=== PATIENT | male | born 1950 | race Caucasian/White ===

== ENCOUNTER → 2018-03-30 14:08 | Outpatient (CLI) | payer MEDICARE, BC, SELFPAY ==
--- NOTE | 2018-03-30 14:14 | CT_ITS ---
EXAM: CT LUNG LOW DOSE WO CONTRAST TECHNIQUE: The exam was performed on a GE Light Speed [address] scanner using 3.0 mGy CTDI. A low dose helical CT CHEST was performed on a multi-detector scanner. All CT scans at this facility use one or more dose reduction techniques, viz.: automated exposure control, ma/kV adjustment per patient size (including targeted exams where dose is matched to indication, i.e. head) or iterative reconstruction technique. The LDCT was performed in a facility that meets the criteria for the screening program. Data regarding this exam was submitted to ACR which is an approved registry. The order for this exam indicates that it came as a result of a lung cancer screening counseling shard decision-making visit that included all the elements required of such a visit including smoking cessation. The radiologist interpreting this exam meets the CMS criteria for the LDCT lung cancer screening program. The exam is reported using the Lung-RADS classification scale and reported to the ACR registry. NOTE: This study was performed for the specific purposes of lung cancer screening and is not an alternative to diagnostic chest CT. COMPARISON: Nodes CT chest study available but there is a CT of abdomen from 09/10/2015 HISTORY: Currently smokin PACS for day for 50 years = 100 pack-year history RADIATION DOSE: CTDI vol(CT dose Index-volume) = 2.90mGy DLP (Dose Length Product) = 116.2. mGy-cm FINDINGS: No suspicious lung nodules or masses. Indeterminate/Non-actionable Nodules(Category2): . A few scattered areas of minimal density at the periphery the lung duncan which appears reflect scarring. Small slightly nodular area probably scarring at the medial aspect of the RML axial image 58. Also aunt linear scarring anteriorly in the left likely candidate for density here. Benign nodules are also observed (Category1). Benign nearly 10 mm calcified granuloma at the medial right lung base. LUNG PARENCHYMA .: Mild hyperexpansion with mild centrilobular emphysematous changes . Only scant fibrotic changes at the periphery of the lung bases. Minimal linear fibrotic scarring most evident towards the posterior right lower lobe but also left lower lobe. Likely in part reflect residual from old 2007 basilar atelectasis/pneumonia episode Borderline to mild airway thickening : OTHER ANATOMIC REGIONS Lymph Nodes: No enlarged lymph nodes evident. Scattered small nodes are present in the mediastinum and lisset There are small calcified nodes right lisset and a calcified nodes subcarinal region reflect old granulomatous disease Pleura: Unremarkable Cardiac: . Normal size with only scant pericardial fluid anteriorly similar to previous CT abdomen study OTHER FINDINGS: No other pertinent findings evident Upper abdomen. Cholelithiasis again noted. Likely fatty changes of liver. Spleen upper normal size. Right adrenal nodule a 17 mm. Low-density previous study and today most likely reflecting benign nonfunctioning adenoma. Incrementally larger but that density. Left adrenal nodule: similar smaller fat density nodules upper portion left adrenal. These are smaller more difficult to delineate one measuring 8 mm and the other 10 mm but measuring fat density. An seen previously. Compatible with nonfunctioning adenomas. These can be followed as well. . IMPRESSION:...... 1. Lung RADS Category: 2. Minimal Benign appearing findings. Follow-up in one year .... Scattered minimal areas of scarring at what appears to be peripheral scarring at lung duncan bilaterally. Not of concern. One year follow-up adequate ... Also old benign granulomatous disease evident with calcified 1 cm granuloma medial right lung base & associated calcified right hilar and mediastinal
== END ==
PROVIDERS: PCP Family Medicine; Visit Provider Family Medicine
DX: Z12.2 Encounter for screening for malignant neoplasm of respiratory organs (principal); Z87.891 Personal history of nicotine dependence

== ENCOUNTER → 2019-02-13 12:49 | Outpatient (CLI) | payer MEDICARE, BC, SELFPAY ==
--- NOTE | 2019-02-13 12:53 | US_ITS ---
APPROVED REPORT Exam Type: Ankle to Brachial Index Software Security Architect: Rosey Steward CRT Indications Claudication: Current Smoker Risk Factors Hypertension Diabetes Current Smoker Pressures/Indices Right Indices Left Indices Brachial 151.00 mmHg Brachial 160.00 mmHg Low Thigh 166.00 mmHg 1.04 Low Thigh 168.00 mmHg 1.05 Calf 170.00 mmHg 1.06 Calf 177.00 mmHg 1.11 Ankle(PT) 152.00 mmHg 0.95 Ankle(PT) 176.00 mmHg 1.10 Ankle(DP) 147.00 mmHg 0.92 Ankle(DP) 147.00 mmHg 0.92 Digit 133.00 mmHg 0.83 Digit 89.00 mmHg 0.56 Findings RABI 1.0 LABI 1.1 NORMAL WAVEFORMS NORMAL PULSES Conclusion No evidence significant arterial disease throughout the right and left lower extremities as evidenced by normal resting PVR waveforms and normal resting indices. Electronically signed by : Sha Weaver MD 02/13/2019 17:22:48
== END ==
PROVIDERS: PCP Family Medicine; Visit Provider Family Medicine
DX: E11.51 Type 2 diabetes mellitus with diabetic peripheral angiopathy without gangrene (principal)
CPT/HCPCS: 93923

== ENCOUNTER 2019-05-28 22:47 | Observation (INO) ==
[2019-05-28 22:52] LABS: ABG Base Excess -2.8 mmol/L (-2.4-2.3); ABG HCO3 21.7 mmhg (22.0-26.0); ABG Oxygen Saturation 91 % (90-100); ABG PCO2 34.4 mmhg (35.0-45.0); ABG PH 7.42 mmol/L (7.35-7.45); ABG PO2 59.9 mmhg (80-100); ABG TCO2 22.8 mmhg (23-27); Allen's Test Y; Oxygen R/A %
[2019-05-28 22:57] LABS: Basophils # 0.1 K/mm3 (0-0.2); Basophils % 0.5 % (0.1-2.0); Eosinophils # 0.3 K/mm3 (0.0-0.4); Eosinophils % 2.5 % (0.1-12.0); Hematocrit 49.2 % (42.0-52.0); Hemoglobin 16.6 g/dL (14.1-18.0); Lymphocytes # 1.1 K/mm3 (0.7-4.5); Lymphocytes % 8.7 % (10-50); Mean Corpuscular HGB Conc 33.8 g/dL (31.8-35.4); Mean Corpuscular Volume 91.4 fl (80-94); Mean Platelet Volume 8.4 fl (7.4-10.4); Monocytes # 0.3 K/mm3 (0.1-1.0); Monocytes % 2.4 % (1.7-9.3); Neutrophils # 10.6 K/mm3 (1.8-7.8); Neutrophils % 85.8 % (37.0-80.0); Platelet Count 173 K/mm3 (142-424); Red Blood Count 5.38 M/mm3 (4.60-6.20); Red Cell Distribution Width 14.4 % (11.5-17.5); White Blood Count 12.3 K/mm3 (4.8-10.8)
[2019-05-28 23:01] LABS: Chloride 99 mmol/L (98-107); Sodium 140 mmol/L (136-145)
[2019-05-28 23:04] LABS: Anion Gap 12.7 mEq/L (5-15); Blood Urea Nitrogen 30 mg/dl (9-20); Calcium 9.2 mg/dl (8.4-10.2); Carbon Dioxide 32 mmol/L (22.0-30.0); Glucose 105 mg/dl (74-100)
[2019-05-28 23:43] LABS: Eosinophils % 4 % (0-3); Lymphocytes % 14 % (10-50); Neutrophils % 82 % (42-76); RBC Morphology Normal; Total Cells Counted 100
--- NOTE | 2019-05-29 00:32 | Emergency Department Note ---
ED Disposition Clinical Impression: Acute confusion, Acute encephalopathy, Hypoxemia, Acute dyspnea, SIRS (systemic inflammatory response syndrome), Obesity hypoventilation syndrome UTI (urinary tract infection) Qualifiers: Urinary tract infection type: site unspecified Hematuria presence: without hematuria Qualified Code(s): N39.0 - Urinary tract infection, site not specified Sleep apnea Qualifiers: Sleep apnea type: obstructive Qualified Code(s): G47.33 - Obstructive sleep apnea (adult) (pediatric) Disposition: Admitted as Observation Condition on Discharge: Fair Referrals: Provider,Referral, MD [Primary Care Provider] - Time of Disposition: 05:06 - Critical Care Critical Care Time: Yes Attestation: On 05/28/19, the high probability of a clinically significant, sudden or life threatening deterioration of the following system(s) required my full and direct attention, intervention and personal management. The time I documented below is in addition to time spent performing reported procedures but includes the following listed in this critical care notation. Total Critical Care Time: 45 Vital system(s) involved:: Metabolic Failure, Respiratory Failure My critical care processes included: Assessment & monitoring of V/S, Initial and Re-exams, Data Review/Interpretation, Coordinating Care, Medication Orders and management, Documentation Medical Decision Making - Alcides Inquiry Pt receiving controlled substance: No Vital Signs: 05/28/19 22:48 Temperature 98.3 F Temperature Source Oral Pulse Rate [Right Brachial] 97 H Respiratory Rate 19 Blood Pressure [Right Arm] 153/94 H Blood Pressure Mean [Right Arm] 113 Blood Pressure Source [Right Arm] Automatic Cuff Blood Pressure Position [Right Arm] Sitting 02 Sat by Pulse Oximetry 95 Oxygen Delivery Method Room Air - Lab Data Lab results reviewed: Yes: I reviewed the patient's lab results. Lab Results 05/28/19 22:40: WBC 12.3 H, RBC 5.38, Hgb 16.6, Hct 49.2, MCV 91.4, MCH 30.9, MCHC 33.8, RDW 14.4, Plt Count 173, MPV 8.4, Neut % (Auto) 85.8 H, Lymph % (Auto) 8.7 L, [place] % (Auto) 2.4, Eos % (Auto) 2.5, Baso % (Auto) 0.5, Neut # (Auto) 10.6 H, Lymph # (Auto) 1.1, [place] # (Auto) 0.3, Eos # (Auto) 0.3, Baso # (Auto) 0.1, Total Counted 100, Neutrophils % (Manual) 82 H, Lymphocytes % (Manual) 14, Eosinophils % (Manual) 4 H, Platelet Estimate Normal, RBC Morphology Normal 05/28/19 22:40: Sodium 140, Potassium 3.7, Chloride 99, Carbon Dioxide 32 H, Anion Gap 12.7, BUN 30 H, Creatinine 1.30 H, Estimated Creat Clear 77, Estimated GFR 55 L, Est GFR ( Amer) 66, Glucose 105 H, Calcium 9.2, Troponin I < 0.01 05/28/19 22:40: Lactate 1.3 05/28/19 22:50: Specimen Source R/r, O2 % R/a, ABG pH 7.42, ABG pCO2 34.4 L, ABG pO2 59.9 L, ABG HCO3 21.7 L, ABG Total CO2 22.8 L, ABG O2 Saturation 91, ABG Base Excess -2.8 L, Sha Test Y 05/29/19 02:30: Troponin I 0.05 H, Plasma/Serum Alcohol < 10 05/29/19 02:30: Urine Color Yellow, Urine Appearance Clear, Urine pH 6.0, Ur Specific Priddy 1.020, Urine Protein Negative, Urine Glucose (UA) Negative, Urine Ketones Negative, Urine Blood Negative, Urine Nitrate Positive, Urine Bilirubin Negative, Urine Urobilinogen 0.2, Ur Leukocyte Esterase 1+ A, Urine WBC 5-10, Ur Squamous Epith Cells 3-5, Urine Bacteria 3+, Urine Mucus 1+ 05/29/19 02:30: NT-Pro-B Natriuret Pep 491 H 05/29/19 02:30: Urine Opiates Screen Negative, Urine Methadone Screen Negative, Ur Barbituates Screen Negative, Ur Phencyclidine Scrn Negative, Ur Amphetamines Screen Negative, U Benzodiazepines Scrn Negative, Urine Cocaine Screen Negative, U Marijuana (THC) Screen Negative 05/29/19 03:14: Specimen Source R/r, O2 % R/a, ABG pH 7.41, ABG pCO2 38.5, ABG pO2 59.7 L, ABG HCO3 23.9, ABG Total CO2 25.0, ABG O2 Saturation 92, ABG Base Excess -0.8, Sha Test Y 05/29/19 03:18: Influenza Type A Ag Negative, Influenza Type B Ag Negative 05/29/19 04:30: Troponin I 0.05 H 05/29/19 04:30: Ammonia < 9 L Result diagrams: 05/28/19 22:40 05/28/19 22:40 Orders (Tests/Meds): ED MEDICATIONS Generic Name Dose Route Start Last Admin Trade Name Freq PRN Reason Stop Dose Admin Ceftriaxone Sodium 1 gm/ 50 mls @ 100 mls/hr 05/29/19 04:42 Sodium Chloride IV 05/29/19 05:11 ONCE STA Protocol Sodium Chloride 10 ml 05/29/19 00:43 Sodium Chloride 0.9% 10ml Vial IV 06/28/19 00:42 NEEDED PRN to Dilute Lorazepam inj Sodium Chloride 10 ml 05/29/19 03:32 Sodium Chloride 0.9% 10ml Vial IV 06/28/19 03:31 NEEDED PRN to Dilute Lorazepam inj Discontinued Medications Generic Name Dose Route Start Last Admin Trade Name Freq PRN Reason Stop Dose Admin Haloperidol Lactate 5 mg 05/29/19 04:11 Haldol 5mg/Ml Vial IM 05/29/19 04:12 ONCE ONE Ioversol 70 ml 05/29/19 04:58 05/29/19 05:00 Rad-Optiray 350 100ml Vial IV 05/29/19 04:59 70 ml ONCE ONE Administration Protocol Lorazepam 2 mg 05/29/19 00:43 05/29/19 00:51 Ativan 2mg/Ml Vial IV 05/29/19 00:44 2 mg ONCE ONE Administration Lorazepam 1 mg 05/29/19 03:32 Ativan 2mg/Ml Vial IV 05/29/19 03:33 ONCE ONE Promethazine HCl 25 mg 05/28/19 23:46 05/28/19 23:53 Phenergan 25mg/Ml 1ml Vial IV 05/28/19 23:47 25 mg ONCE ONE Administration Sodium Chloride 25 ml 05/28/19 23:46 Sod Chlor 0.9% 25ml Bag IV 05/28/19 23:47 ONCE ONE Sodium Chloride 40 ml 05/29/19 04:58 05/29/19 04:59 Rad-Ns 50ml Vial IV 05/29/19 04:59 40 ml ONCE ONE Administration Sodium Chloride 10 ml 05/29/19 04:58 05/29/19 04:59 Rad-Saline Flush 10ml Syringe IV 05/29/19 04:59 10 ml ONCE ONE Administration ORDERS Category Date Time Status CT Chest w/PE protocol [CT angio chest] Stat Cat Scan 05/29/19 00:[address] abdomen pelvis wo con Stat Cat Scan 05/29/19 04:[address] head/brain wo con Stat Cat Scan 05/29/19 03:05 Taken XR chest portable Stat Exams 05/28/19 22:45 Taken Blood Culture Stat Micro 05/28/19 22:40 Received Urine Culture Stat Micro 05/29/19 02:30 Received ABG [Arterial Blood Gas] Stat RT 05/28/19 22:45 Ordered ABG [Arterial Blood Gas] Stat RT 05/29/19 03:02 Ordered - Radiology Data #1 Image(s): Chest Image Reviewed: Yes I reviewed the patient's radiology image Chronic lung changes with questionable granulomatous, no acute infiltrate. - CT Data CT Scan: Chest Time Received: 02:[address] Reviewed: Yes: I have viewed the radiologist's interpretation Findings Narrative: CT of the chest shows no evidence of pulmonary embolism in the main branches of the pulmonary artery. Splenomegaly. No consolidation or low mass on the lungs. Gallstones in the gallbladder. Splenomegaly. No other acute finding. CT of the head is negative for any acute intracranial abnormality. CT of the abdomen pelvis reports no acute intra-abdominal or pelvic pathology. Adrenal nodules noted questionable segment 2 mass in the liver on the left lobe. - ECG Data Tracing #1 EKG done at 2241 hrs. shows sinus rhythm with nonspecific ST-T changes. Wide- complex QRS pattern, left bundle branch block pattern. - Physician Consults Physician Consulted: Dr. Domínguez Time: 05:02 Reason -: Admission, Pt condition Comment/Response: Dr. Domínguez, the patient's primary care provider, regarding the patient and planned to get the patient admitted for acute confusion/acute dyspnea/urinary tract infection/SIRS. - Reevaluation(s) Time: 01:10 Reevaluation #1: Patient seems to be anxious. Plan to give him 1 dose of Ativan. Time: 02:26 Reevaluation #3: Patient looks drowsy but asked confused when waking up. He is not making any sense when he is conversing. Plan to do a CT scan of the head to further evaluate for intracranial cause of the problem. Time reevaluation 3: 03:05 Reevaluation #2: Patient was feeling better after the Ativan shot. His heart rate initially was around 110s to 120s but it dropped down to 80s after the Ativan. He was resting well. Additional Reevaluation(s): Pt was repeatedly having frequent urination. The has urinated on his pants too. He had voided about 800ml of urine by himself. He was still complaining of willing to void . I decided to check his bladder after his voiding. On the ultrasound that I did this seems to be about 400 mL of urine still present on the bladder after he had voided about 300 mL of urine out. Patient seems to have enlarged prostate. And to insert a Donis catheter to check for the residual urine and monitor the patient accordingly. Resp/SOB HPI - General Chief Complaint: Shortness of Breath/Dyspnea Stated Complaint: shortness of air Time Seen by Provider: 05/29/19 00:15 Mode of Arrival: EMS Source of Information: Patient Limitations: No Limitations Description of Symptoms (Recalled from ER Triage Doc. by RN): pt describes having a coughing fit, where he got choked on his own phlegmn and became soa . he called 911 for difficulty getting his breath back. history significant for anxiety. - History of Present Illness 69-year-old male was brought in by the EMS for having acute onset shortness of breath just prior to arrival. Patient states he was sleeping when he woke up with a sudden onset shortness of breath. He states he was having a choking episodes at this time. He got very anxious and he may have gone into panic mode. He has history of panic attack and shortness of breath due to the same. Denies having any acute chest pain. Denies having any acute nausea or vomiting. Patient is hyperventilating and tachypneic in the emergency department. Does not give a proper history. Complaint: shortness of breath - Related Data Home Medications Medication Instructions Recorded Confirmed Amlodipine Besylate [Amlodipine 10 mg PO DAILY 05/28/19 05/28/19 10mg Tab] Indomethacin 25 mg PO DAILY 05/28/19 05/28/19 Potassium Chloride 20 meq PO DAILY 05/28/19 05/28/19 Pramoxine HCl/Ammonium Lactate 1 each TP NEEDED PRN 05/28/19 05/28/19 [Amlactin Distribution Pack] Sitagliptin Phos/Metformin HCl 1 each PO DAILY 05/28/19 05/28/19 [Janumet 50-500 mg Tablet] Tamsulosin HCl [Flomax 0.4mg 0.4 mg PO HS 05/28/19 05/28/19 capsule] Triamterene 50 mg PO CONSULT PHARMACY 05/28/19 05/28/19 allopurinoL [Allopurinol 300mg 300 mg PO DAILY 05/28/19 05/28/19 tablet] atenoloL [Atenolol 100mg Tab] 100 mg PO DAILY 05/28/19 05/28/19 Allergies Allergy/AdvReac Type Severity Reaction Status Date / Time shellfish derived Allergy Intermediate DIARRHEA/VO Unverified 03/21/17 15:24 [From SHELLFISH (FOOD/DRUG)] MITING/COUG JAYE From SHELLFISH (FOOD/DRUG) Allergy Intermediate DIARRHEA/VO Uncoded 03/21/17 15:24 MITING/COUG JAYE [facility] History - Hepatitis A Screen Drug use history?: No High risk sexual behaviors?: No History of sexually transmitted infection?: No Currently employed?: No Childcare worker?: No Do you have indoor plumbing?: Yes Do you have electricity?: Yes Attestation statement:: This patient has been screened for Hepatitis A risk factors. I have reviewed the patient's past medical history: Yes ROS Obtained: Yes All systems reviewed & no additional complaints Physical Exam - General General appearance: alert, anxious (Patient is hyperventilating and tachypneic.), obese, other (Questionable acidotic breath smell.) - Head Head exam: atraumatic, normocephalic, normal inspection - Eye Eye exam: Present: normal appearance, PERRL, EOMI - ENT ENT exam: Present: normal exam, normal oropharynx, mucous membranes moist, normal external ear exam - Neck Neck exam: Present: normal inspection, full ROM, trachea midline - Chest Chest inspection: Present: normal inspection, symmetric chest wall rise. Absent: tenderness - Respiratory Respiratory exam: Present: normal lung sounds bilaterally. Absent: respiratory distress - Cardiovascular Cardiovascular exam: Present: regular rate, normal rhythm. Absent: JVD - Abdominal Exam Abdominal exam: Present: soft, normal bowel sounds. Absent: distention, tenderness, guarding - Extremities Exam Extremities exam: Present: normal inspection, full ROM, normal capillary refill. Absent: calf tenderness - Back Exam Back exam: Present: normal inspection. Absent: tenderness - Neurological Exam Neurological exam: Present: alert, oriented X3, CN II-XII intact - Psychiatric Psychiatric exam: Present: normal affect, normal mood - Skin Skin exam: Present: warm, dry, intact, normal color
[2019-05-29 02:50] LABS: Ethyl Alcohol < 10 mg/dl (0-10)
[2019-05-29 03:10] LABS: Microscopic, Urine URINE MICROSCOPIC (MICROSCOPIC)
[2019-05-29 03:13] LABS: Appearance,Urine CLEAR (Clear); Bilirubin,Urine Negative (Negative); Blood, Urine Negative (Negative); Color,Urine YELLOW (Yellow); Glucose,Urine (UA) Negative (Negative); Ketones,Urine Negative (Negative); Leukocyte Esterase,Urine 1+ (Negative); Protein,Urine Negative (Negative); Urobilinogen,Urine 0.2 EU/dl (0.2)
[2019-05-29 03:15] LABS: ABG Base Excess -0.8 mmol/L (-2.4-2.3); ABG HCO3 23.9 mmhg (22.0-26.0); ABG Oxygen Saturation 92 % (90-100); ABG PCO2 38.5 mmhg (35.0-45.0); ABG PH 7.41 mmol/L (7.35-7.45); ABG PO2 59.7 mmhg (80-100)
[2019-05-29 03:16] LABS: Allen's Test Y; Oxygen R/A %
[2019-05-29 03:18] LABS: Bacteria,Urine 3+ /lpf; Mucus,Urine 1+ /lpf
[2019-05-29 03:39] LABS: Amphetamine/Metha Screen,Urine Negative ng/ml (<1000)
[2019-05-29 03:40] LABS: Barbiturates Screen,Urine Negative ng/ml (<200)
[2019-05-29 03:41] LABS: Benzodiazepines Screen,Urine Negative ng/ml (<200); Cannabinoid Screen,Urine Negative ng/ml (<50)
[2019-05-29 03:42] LABS: Cocaine Screen,Urine Negative ng/ml (<300)
[2019-05-29 03:43] LABS: Methadone Screen,Urine Negative ng/ml (<300); Opiate Screen,Urine Negative ng/ml (<300)
[2019-05-29 03:44] LABS: Phencyclidine Screen,Urine Negative ng/ml (<25)
[2019-05-29 07:28] LABS: Anion Gap 11.9 mEq/L (5-15); Basophils # 0.1 K/mm3 (0-0.2); Basophils % 0.9 % (0.1-2.0); Calcium 9.1 mg/dl (8.4-10.2); Eosinophils # 0.2 K/mm3 (0.0-0.4); Eosinophils % 2.4 % (0.1-12.0); Hematocrit 45.4 % (42.0-52.0); Hemoglobin 15.2 g/dL (14.1-18.0); Lymphocytes # 0.9 K/mm3 (0.7-4.5); Lymphocytes % 9.4 % (10-50); Mean Corpuscular HGB Conc 33.5 g/dL (31.8-35.4); Mean Corpuscular Volume 92.5 fl (80-94); Mean Platelet Volume 8.2 fl (7.4-10.4); Monocytes # 0.4 K/mm3 (0.1-1.0); Monocytes % 4.5 % (1.7-9.3); Neutrophils # 7.9 K/mm3 (1.8-7.8); Neutrophils % 82.8 % (37.0-80.0); Platelet Count 137 K/mm3 (142-424); Red Blood Count 4.91 M/mm3 (4.60-6.20); Red Cell Distribution Width 14.3 % (11.5-17.5); White Blood Count 9.5 K/mm3 (4.8-10.8)
--- NOTE | 2019-05-29 07:41 | Pharmacy Consult Notes ---
[facility] Pharmacy VTE Monitoring - Patient Demographics Admission date: 05/29/19 Report Date: 05/29/19 Time: 07:41 Allergies/Adverse Reactions: Patient Allergies shellfish derived [From SHELLFISH (FOOD/DRUG)] Allergy (Intermediate, Verified 05/29/19 05:29) DIARRHEA/VOMITING/COUGHING Height: 1.7 m Weight: 100.754 kg Patient Problems: Current Active Problems Acute confusion (Acute) Acute encephalopathy (Acute) Hypoxemia (Acute) Acute dyspnea (Acute) UTI (urinary tract infection) (Acute) SIRS (systemic inflammatory response syndrome) (Acute) Obesity hypoventilation syndrome (Acute) Sleep apnea (Acute) - VTE Risk Labs: VTE Related Lab Results Hgb 15.2 g/dL (14.1-18.0) 05/29/19 07:06 Hct 45.4 % (42.0-52.0) 05/29/19 07:06 Plt Count 137 K/mm3 (142-424) L 05/29/19 07:06 BUN 24 mg/dl (9-20) H 05/29/19 07:06 Creatinine 1.10 mg/dl (0.66-1.25) 05/29/19 07:06 Estimated Creat Clear 92 mL/min (50-200) 05/29/19 07:06 - Prophylaxis VTE Prophylaxis Ordered?: Yes Types of VTE Prophylaxis: TEDS Knee High Location of Applied Device: Bilateral Lower Extremeties Pharmacologic Type: Other
--- NOTE | 2019-05-29 09:00 | History & Physical Report ---
*Admission Date: 05/29/19 *Chief complaint: Shortness of breath *History of present illness: Mr. Childers is a 69-year-old male with a history of hypertension, metabolic syndrome, diverticulitis, and diabetes mellitus who presented to [facility] emergency room complaining of progressive shortness of breath. Patient states that he had been ill for several days. He states he has been eating and drinking normally. He denies diarrhea but states he has been vomiting. Patient is a poor historian this morning due to lethargy. Patient had extensive work-up in the emergency room: White blood cell count was found to be elevated at 12,300 and is normalized this a.m. Blood chemistries revealed BUN of 30 and creatinine of 1.3. Troponin I's were elevated at 0.05, 0.05, and 0.04, BNP was 491. He had 2 sets of blood gases with normal pH ,PCO2 ranged from 34.4-30.5, PO2 range 59.9-59.7, and b icarb of 21.7-23.9. Urinalysis did show 1+ leuk esterase 3+ bacteria and positive nitrates. Drug screen was negative; flu test was also negative for A and B. Chest x-ray showed minimal atelectatic or fibrotic changes and otherwise was negative. CT of the chest showed no evidence of acute pulmonary embolism. CT of the Head showed no Acute intracranial findings. CT of the abdomen and pelvis showed no acute abdominal or pelvic findings, diverticulosis, cholelithiasis, bilateral adrenal nodules. In the emergency room patient was started on Rocephin IV and given a total of 3 mg of lorazepam IV, 25 mg of promethazine, and 5 mg of Haldol IM. This a.m. at time of initial exam patient is quite lethargic. He does answer questions but speech is garbled. He Denies chest pain and shortness of breath. He denies abdominal pain. He denies nausea. [facility] History Medical History: Reports:: Diabetes Mellitus Type 2, Hypertension *Have you ever received a pneumonia vaccine?: Yes *Have you received a flu vaccine this season?: Yes Laterality Cases: Bilateral: Cataract, Tonsillectomy Other Surgeries: Yes: Other (Breast surgery, anal fistula repair) - *Social History Educational Level: Attended College Smoking Status: Current every day smoker # Packs/Day (cigarettes): 1 Alcohol Intake: never *Occupational Status:: unemployed Household Members: none *Travel in the last 8 weeks: None Family Hx:: Cancer (In both mother and father) Review of Systems - Constitutional Denies headache(s) - ENT Denies ear pain, Denies sore throat - *Cardiovascular Reports shortness of breath, Denies chest pain, Denies leg swelling - *Respiratory Reports cough, Reports shortness of breath - *Gastrointestinal Reports vomiting, Denies abdominal pain, Denies nausea - *Genitourinary Denies difficulty urinating - *Musculoskeletal Denies joint pain - *Neurologic Reports confusion, Denies seizure-like activity Meds Home Medications Medication Instructions Recorded Confirmed Type Indomethacin 25 mg PO TID 05/28/19 05/29/19 History Potassium Chloride 20 meq PO DAILY 05/28/19 05/28/19 History Sitagliptin Phos/Metformin HCl 1 each PO DAILY 05/28/19 05/28/19 History [Janumet 50-500 mg Tablet] Tamsulosin HCl [Flomax 0.4mg 0.4 mg PO HS 05/28/19 05/28/19 History capsule] allopurinoL [Allopurinol 300mg 300 mg PO DAILY 05/28/19 05/28/19 History tablet] atenoloL [Atenolol 100mg Tab] 100 mg PO DAILY 05/28/19 05/28/19 History Amlodipine Besylate [Amlodipine 5 mg PO DAILY 05/29/19 05/29/19 History 5mg tab] Triamterene/Hydrochlorothiazid 1 each PO DAILY 05/29/19 05/29/19 History [Maxzide 37.5 mg-25 mg Tablet] Allergies Allergy/AdvReac Type Severity Reaction Status Date / Time shellfish derived Allergy Intermediate DIARRHEA/VO Verified 05/29/19 05:29 [From SHELLFISH (FOOD/DRUG)] MITING/COUG JAYE Exam Vital signs and Labs for Last 24 Hours: Temp Pulse Resp BP Pulse Ox 98.4 F 78 20 145/52 H 94 L 05/29/19 08:00 05/29/19 08:00 05/29/19 08:00 05/29/19 08:00 05/29/19 08:00 Laboratory Results - last 24 hr 05/28/19 22:40: WBC 12.3 H, RBC 5.38, Hgb 16.6, Hct 49.2, MCV 91.4, MCH 30.9, MCHC 33.8, RDW 14.4, Plt Count 173, MPV 8.4, Neut % (Auto) 85.8 H, Lymph % (Auto) 8.7 L, [place] % (Auto) 2.4, Eos % (Auto) 2.5, Baso % (Auto) 0.5, Neut # (Auto) 10.6 H, Lymph # (Auto) 1.1, [place] # (Auto) 0.3, Eos # (Auto) 0.3, Baso # (Auto) 0.1, Total Counted 100, Neutrophils % (Manual) 82 H, Lymphocytes % (Manual) 14, Eosinophils % (Manual) 4 H, Platelet Estimate Normal, RBC Morphology Normal 05/28/19 22:40: Sodium 140, Potassium 3.7, Chloride 99, Carbon Dioxide 32 H, Anion Gap 12.7, BUN 30 H, Creatinine 1.30 H, Estimated Creat Clear 77, Estimated GFR 55 L, Est GFR ( Amer) 66, Glucose 105 H, Calcium 9.2, Troponin I < 0.01 05/28/19 22:40: Lactate 1.3 05/28/19 22:50: Specimen Source R/r, O2 % R/a, ABG pH 7.42, ABG pCO2 34.4 L, ABG pO2 59.9 L, ABG HCO3 21.7 L, ABG Total CO2 22.8 L, ABG O2 Saturation 91, ABG Base Excess -2.8 L, Sha Test Y 05/29/19 02:30: Troponin I 0.05 H, Plasma/Serum Alcohol < 10 05/29/19 02:30: Urine Color Yellow, Urine Appearance Clear, Urine pH 6.0, Ur Specific Rachel 1.020, Urine Protein Negative, Urine Glucose (UA) Negative, Urine Ketones Negative, Urine Blood Negative, Urine Nitrate Positive, Urine Bilirubin Negative, Urine Urobilinogen 0.2, Ur Leukocyte Esterase 1+ A, Urine WBC 5-10, Ur Squamous Epith Cells 3-5, Urine Bacteria 3+, Urine Mucus 1+ 05/29/19 02:30: NT-Pro-B Natriuret Pep 491 H 05/29/19 02:30: Urine Opiates Screen Negative, Urine Methadone Screen Negative, Ur Barbituates Screen Negative, Ur Phencyclidine Scrn Negative, Ur Amphetamines Screen Negative, U Benzodiazepines Scrn Negative, Urine Cocaine Screen Negative, U Marijuana (THC) Screen Negative 05/29/19 03:14: Specimen Source R/r, O2 % R/a, ABG pH 7.41, ABG pCO2 38.5, ABG pO2 59.7 L, ABG HCO3 23.9, ABG Total CO2 25.0, ABG O2 Saturation 92, ABG Base Excess -0.8, Sha Test Y 05/29/19 03:18: Influenza Type A Ag Negative, Influenza Type B Ag Negative 05/29/19 04:30: Troponin I 0.05 H 05/29/19 04:30: Ammonia < 9 L 05/29/19 06:28: POC Glucose 111 H 05/29/19 07:06: Sodium 137, Potassium 3.9, Chloride 101, Carbon Dioxide 28, Ani on Gap 11.9, BUN 24 H, Creatinine 1.10, Estimated Creat Clear 92, Estimated GFR 67, Est GFR ( Amer) 81 D, Glucose 116 H, Calcium 9.1, Troponin I 0.04 H 05/29/19 07:06: WBC 9.5, RBC 4.91, Hgb 15.2, Hct 45.4, MCV 92.5, MCH 31.0, MCHC 33.5, RDW 14.3, Plt Count 137 L, MPV 8.2, Neut % (Auto) 82.8 H, Lymph % (Auto) 9.4 L, [place] % (Auto) 4.5, Eos % (Auto) 2.4, Baso % (Auto) 0.9, Neut # (Auto) 7.9 H, Lymph # (Auto) 0.9, [place] # (Auto) 0.4, Eos # (Auto) 0.2, Baso # (Auto) 0.1 I & O for Last 24 hours: Intake & Output 05/26/19 05/27/19 05/28/19 05/29/19 11:59 11:59 11:59 11:59 Intake Total 120 / 120 Output Total 1974 Balance -1855 / -1855 Weight 222 lb 2 oz - Constitutional no acute distress Comments: Lethargic - *Routine HEENT Exam Head: Present: normocephalic, atraumatic Eye: Present: PERRL. Absent: conjunctival icterus, scleral injection ENT: Present: mucous membranes moist, oropharynx clear - *Routine Neck Exam Present: supple. Absent: carotid bruit, lymphadenopathy, thyromegaly - *Routine Respiratory Exam Present: CTA bilaterally (Anteriorly and posteriorly) - *Routine Cardiovascular Exam Present: RRR - *Routine Abdominal Exam Present: soft, normoactive bowel sounds. Absent: tenderness, distended Comments: Has Donis catheter in place - *Routine Extremities Exam Absent: edema, calf tenderness - *Routine Neurological Exam Present: alert, altered mental status, moving all extremities Assessment and Plan (1) Troponin level elevated Current visit: Yes Status: Acute Category: Medical Code(s): R79.89 - Other specified abnormal findings of blood chemistry (2) Acute confusion Current visit: Yes Status: Acute Category: Medical Code(s): R41.0 - Disorientation, unspecified (3) Acute dyspnea Current visit: Yes Status: Acute Category: Medical Code(s): R06.00 - Dyspnea, unspecified (4) Hypoxemia Current visit: Yes Status: Acute Category: Medical Code(s): R09.02 - Hypoxemia (5) Obesity hypoventilation syndrome Current visit: Yes Status: Acute Category: Medical Code(s): E66.2 - Morbid (severe) obesity with alveolar hypoventilation (6) Sleep apnea Current visit: Yes Status: Acute Qualifiers: Sleep apnea type: obstructive Qualified Code(s): G47.33 - Obstructive sleep apnea (adult) (pediatric) Category: Medical Code(s): G47.30 - Sleep apnea, unspecified (7) UTI (urinary tract infection) Current visit: Yes Status: Acute Qualifiers: Urinary tract infection type: site unspecified Hematuria presence: without hematuria Qualified Code(s): N39.0 - Urinary tract infection, site not specified Category: Medical Code(s): N39.0 - Urinary tract infection, site not specified (8) Tobacco use disorder Current visit: Yes Status: Chronic Category: Medical Code(s): F17.200 - Nicotine dependence, unspecified, uncomplicated (9) Hypertension Current visit: Yes Status: Chronic Category: Medical Code(s): I10 - Essential (primary) hypertension (10) Metabolic syndrome Current visit: Yes Status: Chronic Category: Medical Code(s): E88.81 - Metabolic syndrome - Assessment and plan all Dx Assessment and Plan for all problems:: We will repeat ABGs this a.m. due to sedation. Cardiology consult due to elevated troponins. We will continue with IV fluids and antibiotics of Levaquin and Rocephin with pending culture results.
--- NOTE | 2019-05-29 09:58 | Consult Report ---
History of Present Illness Consult date: 05/29/19 Requesting physician: Akbar Domínguez Consult reason: shortness of breath Chief complaint: Shortness of breath Additional Medical History:: 1. HTN 2. DM History of present illness: This is a 69-year-old gentleman with a history of hypertension and diabetes who presented to the emergency department with complaints of shortness of breath. The patient states that his shortness of breath has been progressively worsening and he had been ill for the past several days. The patient states that he was able to eat and drink normally but just did not feel well. He states that his shortness of breath was associated with vomiting but denied any diarrhea. He denied any fever, chills, PND or orthopnea. While he was in the emergency department he did get somewhat confused and was having issues with urination as well. This information was obtained from his emergency department record. This morning the patient is very confused. He is unable to answer any of my qu estions. He did have Haldol and Ativan while he was in the emergency department and this is caused him to have some confusion and he is very lethargic and just wants to sleep. The patient does deny any chest pain or pressure when asked. He states that he is still short of breath this morning. He states that this has not changed. But outside of that the patient does not answer any of my other questions. He remains significantly lethargic and his speech is very mumbled and I am unable to make out anything that he is saying. He is confused but he does follow commands appropriately for the most part. [facility] History I have reviewed the patient's past medical history: Yes (pt is confused and unable to answer questions) Medical History: Reports:: Diabetes Mellitus Type 2, Hypertension *Have you ever received a pneumonia vaccine?: Yes *Have you received a flu vaccine this season?: Yes Laterality Cases: Bilateral: Cataract, Tonsillectomy Other Surgeries: Yes: Other (Breast surgery, anal fistula repair) - *Social History Educational Level: Attended College Smoking Status: Current every day smoker # Packs/Day (cigarettes): 1 Alcohol Intake: never *Occupational Status:: unemployed Household Members: none *Travel in the last 8 weeks: None Family Hx:: Cancer (In both mother and father) Meds Home Medications Medication Instructions Recorded Confirmed Type Indomethacin 25 mg PO TID 05/28/19 05/29/19 History Potassium Chloride 20 meq PO DAILY 05/28/19 05/28/19 History Sitagliptin Phos/Metformin HCl 1 each PO DAILY 05/28/19 05/28/19 History [Janumet 50-500 mg Tablet] Tamsulosin HCl [Flomax 0.4mg 0.4 mg PO HS 05/28/19 05/28/19 History capsule] allopurinoL [Allopurinol 300mg 300 mg PO DAILY 05/28/19 05/28/19 History tablet] atenoloL [Atenolol 100mg Tab] 100 mg PO DAILY 05/28/19 05/28/19 History Amlodipine Besylate [Amlodipine 5 mg PO DAILY 05/29/19 05/29/19 History 5mg tab] Triamterene/Hydrochlorothiazid 1 each PO DAILY 05/29/19 05/29/19 History [Maxzide 37.5 mg-25 mg Tablet] Allergies Allergy/AdvReac Type Severity Reaction Status Date / Time shellfish derived Allergy Intermediate DIARRHEA/VO Verified 05/29/19 05:29 [From SHELLFISH (FOOD/DRUG)] GENE/QIAN CEE Review of Systems - Review of Systems Review of systems:: unable to obtain (Due to confusion) - *Cardiovascular Denies chest pain - *Respiratory Reports shortness of breath, Reports shortness of breath with activity - *Neurologic Reports confusion, Denies headache(s), Denies seizure-like activity Exam Vital signs and Labs for Last 24 Hours: Temp Pulse Resp BP Pulse Ox 98.4 F 78 20 145/52 H 93 L 05/29/19 08:00 05/29/19 08:00 05/29/19 08:00 05/29/19 08:00 05/29/19 08:00 Laboratory Results - last 24 hr 05/28/19 22:40: WBC 12.3 H, RBC 5.38, Hgb 16.6, Hct 49.2, MCV 91.4, MCH 30.9, MCHC 33.8, RDW 14.4, Plt Count 173, MPV 8.4, Neut % (Auto) 85.8 H, Lymph % (Auto) 8.7 L, [place] % (Auto) 2.4, Eos % (Auto) 2.5, Baso % (Auto) 0.5, Neut # (Auto) 10.6 H, Lymph # (Auto) 1.1, [place] # (Auto) 0.3, Eos # (Auto) 0.3, Baso # (Auto) 0.1, Total Counted 100, Neutrophils % (Manual) 82 H, Lymphocytes % (Manual) 14, Eosinophils % (Manual) 4 H, Platelet Estimate Normal, RBC Morphology Normal 05/28/19 22:40: Sodium 140, Potassium 3.7, Chloride 99, Carbon Dioxide 32 H, Anion Gap 12.7, BUN 30 H, Creatinine 1.30 H, Estimated Creat Clear 77, Estimated GFR 55 L, Est GFR ( Amer) 66, Glucose 105 H, Calcium 9.2, Troponin I < 0.01 05/28/19 22:40: Lactate 1.3 05/28/19 22:50: Specimen Source R/r, O2 % R/a, ABG pH 7.42, ABG pCO2 34.4 L, ABG pO2 59.9 L, ABG HCO3 21.7 L, ABG Total CO2 22.8 L, ABG O2 Saturation 91, ABG Base Excess -2.8 L, Sha Test Y 05/29/19 02:30: Troponin I 0.05 H, Plasma/Serum Alcohol < 10 05/29/19 02:30: Urine Color Yellow, Urine Appearance Clear, Urine pH 6.0, Ur Specific [place] 1.020, Urine Protein Negative, Urine Glucose (UA) Negative, Urine Ketones Negative, Urine Blood Negative, Urine Nitrate Positive, Urine Bilirubin Negative, Urine Urobilinogen 0.2, Ur Leukocyte Esterase 1+ A, Urine WBC 5-10, Ur Squamous Epith Cells 3-5, Urine Bacteria 3+, Urine Mucus 1+ 05/29/19 02:30: NT-Pro-B Natriuret Pep 491 H 05/29/19 02:30: Urine Opiates Screen Negative, Urine Methadone Screen Negative, Ur Barbituates Screen Negative, Ur Phencyclidine Scrn Negative, Ur Amphetamines Screen Negative, U Benzodiazepines Scrn Negative, Urine Cocaine Screen Negative, U Marijuana (THC) Screen Negative 05/29/19 03:14: Specimen Source R/r, O2 % R/a, ABG pH 7.41, ABG pCO2 38.5, ABG pO2 59.7 L, ABG HCO3 23.9, ABG Total CO2 25.0, ABG O2 Saturation 92, ABG Base Excess -0.8, Sha Test Y 05/29/19 03:18: Influenza Type A Ag Negative, Influenza Type B Ag Negative 05/29/19 04:30: Troponin I 0.05 H 05/29/19 04:30: Ammonia < 9 L 05/29/19 06:28: POC Glucose 111 H 05/29/19 07:06: Sodium 137, Potassium 3.9, Chloride 101, Carbon Dioxide 28, Anion Gap 11.9, BUN 24 H, Creatinine 1.10, Estimated Creat Clear 92, Estimated GFR 67, Est GFR ( Amer) 81 D, Glucose 116 H, Calcium 9.1, Troponin I 0.04 H 05/29/19 07:06: WBC 9.5, RBC 4.91, Hgb 15.2, Hct 45.4, MCV 92.5, MCH 31.0, MCHC 33.5, RDW 14.3, Plt Count 137 L, MPV 8.2, Neut % (Auto) 82.8 H, Lymph % (Auto) 9.4 L, [place]ck[place] % (Auto) 4.5, Eos % (Auto) 2.4, Baso % (Auto) 0.9, Neut # (Auto) 7.9 H, Lymph # (Auto) 0.9, Mck[place] # (Auto) 0.4, Eos # (Auto) 0.2, Baso # (Auto) 0.1 I & O for Last 24 hours: Intake & Output 05/26/19 05/27/19 05/28/19 05/29/19 23:59 23:59 23:59 23:59 Intake Total 120 / 120 Output Total 1974 Balance -1855 / -1855 Weight 220 lb 222 lb 2 oz Narrative: EKG is sinus rhythm with left bundle branch block and a rate of 94. - Constitutional no acute distress, average body habitus - *Routine HEENT Exam Head: Present: normocephalic, atraumatic Eye: Present: EOMI, PERRL ENT: Present: mucous membranes moist - *Routine Neck Exam Present: supple, full ROM, normal carotid upstroke. Absent: JVD, carotid bruit, lymphadenopathy - *Routine Respiratory Exam Present: CTA bilaterally - *Routine Cardiovascular Exam Present: RRR, Normal S1, Normal S2. Absent: murmur - *Routine Abdominal Exam Present: soft, normoactive bowel sounds. Absent: tenderness, distended - *Routine Extremities Exam Present: full ROM, pulses intact, normal capillary refill. Absent: cyanosis, clubbing, edema - *Routine Skin Exam Present: intact, warm. Absent: erythema, rash - *Routine Neurological Exam Present: alert, oriented X3, CN II-XII intact. Absent: sensory deficit, motor deficit - Routine Psychiatric Exam Present: normal affect, normal thought process - Detailed Eye Exam Eyelids: Left normal inspection Assessment and Plan (1) Atypical angina Current visit: Yes Status: Acute Category: Medical Code(s): I20.8 - Other forms of angina pectoris (2) Troponin level elevated Current visit: Yes Status: Acute Category: Medical Code(s): R79.89 - Other specified abnormal findings of blood chemistry (3) Left bundle branch block Current visit: Yes Status: Acute Category: Medical Code(s): I44.7 - Left bundle-branch block, unspecified (4) Acute dyspnea Current visit: Yes Status: Acute Category: Medical Code(s): R06.00 - Dyspnea, unspecified (5) Acute confusion Current visit: Yes Status: Acute Category: Medical Code(s): R41.0 - Disorientation, unspecified (6) Hypoxemia Current visit: Yes Status: Acute Category: Medical Code(s): R09.02 - Hypoxemia (7) Obesity hypoventilation syndrome Current visit: Yes Status: Acute Category: Medical Code(s): E66.2 - Morbid (severe) obesity with alveolar hypoventilation (8) Sleep apnea Current visit: Yes Status: Acute Qualifiers: Sleep apnea type: obstructive Qualified Code(s): G47.33 - Obstructive sleep apnea (adult) (pediatric) Category: Medical Code(s): G47.30 - Sleep apnea, unspecified (9) UTI (urinary tract infection) Current visit: Yes Status: Acute Qualifiers: Urinary tract infection type: site unspecified Hematuria presence: without hematuria Qualified Code(s): N39.0 - Urinary tract infection, site not specified Category: Medical Code(s): N39.0 - Urinary tract infection, site not specified (10) Tobacco use disorder Current visit: Yes Status: Chronic Category: Medical Code(s): F17.200 - Nicotine dependence, unspecified, uncomplicated (11) Hypertension Current visit: Yes Status: Chronic Category: Medical Code(s): I10 - Essential (primary) hypertension (12) Metabolic syndrome Current visit: Yes Status: Chronic Category: Medical Code(s): E88.81 - Metabolic syndrome (13) Diabetes mellitus Current visit: Yes Status: Chronic Category: Medical Code(s): E11.9 - Type 2 diabetes mellitus without complications - Assessment and plan all Dx Assessment and Plan for all problems:: Plan: 1. Patient was admitted to the hospital due to shortness of breath. The patient was found to have a slight elevation in his troponin at 0.05. The patient does have a left bundle branch block on EKG. His shortness of breath has been progressively worsening over the last several days. This is most likely atypical angina in the setting of diabetes with an underlying left bundle branch block. We will plan to proceed with left cardiac catheterization today to evaluate for coronary artery disease. 2. The patient has been educated on the risks and benefits of proceeding with left cardiac catheterization. He verbalizes understanding and is agreeable in proceeding with the procedure. However, given his confusion he will likely have to be consented by his POA, which is his niece. 3. The patient will have to be n.p.o. in preparation for left cardiac catheterization. 4. The patient will get IV fluids and premedications prior to the procedure. 5. The patient does have some confusion going on because of the Haldol and Ativan that was given to him in the emergency department. This is concerning given the fact that he has a slightly elevated troponin and an left bundle branch block. If the patient were to have an acute coronary syndrome we would likely not be aware of this because of his confusion. Therefore, the patient needs to be taken to the [facility] as soon as possible to have his coronary arteries evaluated. 6. His blood pressure is acceptable. 7. His LDL goal is less than 55. We will get a liver and lipid panel. 8. His echocardiogram is currently pending. 9. Further recommendations will be made pending the patient's response to treatment and the results of his echocardiogram and left cardiac catheterization today. Thank you for the opportunity to help participate in the care of this patient.
[2019-05-29 10:32] LABS: Bilirubin,Indirect 0.3 mg/dL (0.0-0.9); Bilirubin,Total 0.3 mg/dl (0.2-1.3); Bilirubin,Unconjugated 0.4 mg/dL (0.0-1.1)
[2019-05-29 10:33] LABS: Albumin Level 3.9 g/dl (3.5-5.0); Total Protein,Serum 6.7 g/dl (6.3-8.2)
[2019-05-29 10:36] LABS: Chol/HDL Ratio 3.7 (1-3.5)
[2019-05-29 12:05] LABS: ABG Base Excess 0.4 mmol/L (-2.4-2.3); ABG HCO3 24.5 mmhg (22.0-26.0); ABG Oxygen Saturation 92 % (90-100); ABG PCO2 36.8 mmhg (35.0-45.0); ABG PH 7.44 mmol/L (7.35-7.45); ABG PO2 59.8 mmhg (80-100); ABG TCO2 25.6 mmhg (23-27)
[2019-05-29 12:09] LABS: Allen's Test Acceptable; Oxygen ROOM AIR %
--- NOTE | 2019-05-29 16:10 | Electrocardiograph Report ---
APPROVED REPORT Exam: Resting ECG HR:94 bpm ECG Measurements Heart Rate 94 AXES MA 202 P 84 QRSd 130 QRS 15 QT 382 T95 QTc 477 <Conclusion> Sinus rhythm with fusion complexes Left bundle branch block Abnormal ECG Electronically signed by : Nestor Mejia, 05/29/2019 16:10:22
[2019-05-30 06:21] LABS: Basophils % 0.1 % (0.1-2.0); Eosinophils % 0.2 % (0.1-12.0); Hematocrit 47.8 % (42.0-52.0); Hemoglobin 15.9 g/dL (14.1-18.0); Lymphocytes # 0.7 K/mm3 (0.7-4.5); Lymphocytes % 5.7 % (10-50); Mean Corpuscular HGB Conc 33.3 g/dL (31.8-35.4); Mean Corpuscular Volume 92.2 fl (80-94); Mean Platelet Volume 8.6 fl (7.4-10.4); Monocytes # 0.2 K/mm3 (0.1-1.0); Monocytes % 1.9 % (1.7-9.3); Neutrophils # 11.2 K/mm3 (1.8-7.8); Platelet Count 165 K/mm3 (142-424); Red Blood Count 5.19 M/mm3 (4.60-6.20); Red Cell Distribution Width 14.3 % (11.5-17.5); White Blood Count 12.2 K/mm3 (4.8-10.8)
[2019-05-30 07:00] LABS: Anion Gap 14.8 mEq/L (5-15); Calcium 9.3 mg/dl (8.4-10.2)
--- NOTE | 2019-05-30 08:19 | Progress Note ---
Internal Medicine - PN: Subj *Date: 05/30/19 *Time: 08:16 Interval history: Patient is doing much better today. He has relatively no memory of the last few days. He had a heart cath yesterday which showed normal coronaries. He states today he has no chest pain or shortness of breath. He slept well and ate well and wants to go home. Exam Vital signs and Labs for Last 24 Hours: Temp Pulse Resp BP Pulse Ox 97.6 F 67 18 141/72 H 92 L 05/30/19 07:59 05/30/19 07:59 05/30/19 07:59 05/30/19 07:59 05/30/19 07:59 Laboratory Results - last 24 hr 05/29/19 07:06: Total Bilirubin 0.3, Direct Bilirubin 0.0, Conjugated Bilirubin 0.0, Indirect Bilirubin 0.3, Unconjugated Bilirubin 0.4, AST 40, ALT 36, Alkaline Phosphatase 78, Total Protein 6.7, Albumin 3.9, Triglycerides 113, Cholesterol 123 L, LDL Cholesterol Direct 71.09 L, VLDL Cholesterol 23, HDL Cholesterol 33 L, Cholesterol/HDL Ratio 3.7 H 05/29/19 08:41: Specimen Source Right brachial, O2 % Room air, ABG pH 7.44, ABG pCO2 36.8, ABG pO2 59.8 L, ABG HCO3 24.5, ABG Total CO2 25.6, ABG O2 Saturation 92, ABG Base Excess 0.4, Sha Test Acceptable 05/29/19 11:29: POC Glucose 100 05/29/19 11:45: Troponin I 0.03 05/29/19 18:48: POC Glucose 256 H 05/29/19 23:45: Troponin I < 0.01 05/29/19 23:54: POC Glucose 212 H 05/30/19 05:43: POC Glucose 183 H 05/30/19 06:05: WBC 12.2 H D, RBC 5.19, Hgb 15.9, Hct 47.8, MCV 92.2, MCH 30.7, MCHC 33.3, RDW 14.3, Plt Count 165, MPV 8.6, Neut % (Auto) 92.0 H, Lymph % (Auto) 5.7 L, [place] % (Auto) 1.9, Eos % (Auto) 0.2, Baso % (Auto) 0.1, Neut # (Auto) 11.2 H, Lymph # (Auto) 0.7, [place] # (Auto) 0.2, Eos # (Auto) 0.0, Baso # (Auto) 0.0 05/30/19 06:05: Sodium 138, Potassium 3.8, Chloride 102, Carbon Dioxide 25, Anion Gap 14.8, BUN 32 H D, Creatinine 1.40 H D, Estimated Creat Clear 72, Estimated GFR 50 L, Est GFR ( Amer) 61 D, Glucose 194 H D, Calcium 9.3 I & O for Last 24 hours: Intake & Output 05/27/19 05/28/19 05/29/19 05/30/19 11:59 11:59 11:59 11:59 Intake Total 270 / 270 660 / 660 Output Total 1974 / 1974 4000 / 4000 Balance -1705 / -1705 -3340 / -3340 Weight 222 lb 2 oz 222 lb 10.67 oz Microbiology Reports for the Last 24 Hours: Microbiology 05/29/19 02:30 Urine,Clean Catch Urine Culture - Preliminary NO GROWTH AFTER 24 HOURS - Constitutional no acute distress - *Routine Respiratory Exam Present: CTA bilaterally - *Routine Cardiovascular Exam Present: RRR - *Routine Abdominal Exam Present: soft, normoactive bowel sounds. Absent: tenderness - *Routine Extremities Exam Absent: cyanosis, clubbing, edema - *Routine Skin Exam Present: warm. Absent: rash - *Routine Neurological Exam Present: alert, oriented X3 Assessment and Plan (1) Atypical angina Current visit: Yes Status: Acute Category: Medical Code(s): I20.8 - Other forms of angina pectoris (2) Troponin level elevated Current visit: Yes Status: Acute Category: Medical Code(s): R79.89 - Other specified abnormal findings of blood chemistry (3) Left bundle branch block Current visit: Yes Status: Acute Category: Medical Code(s): I44.7 - Left bundle-branch block, unspecified (4) Acute dyspnea Current visit: Yes Status: Acute Category: Medical Code(s): R06.00 - Dyspnea, unspecified (5) Acute confusion Current visit: Yes Status: Acute Category: Medical Code(s): R41.0 - Disorientation, unspecified (6) Hypoxemia Current visit: Yes Status: Acute Category: Medical Code(s): R09.02 - Hypoxemia (7) Obesity hypoventilation syndrome Current visit: Yes Status: Acute Category: Medical Code(s): E66.2 - Morbid (severe) obesity with alveolar hypoventilation (8) Sleep apnea Current visit: Yes Status: Acute Qualifiers: Sleep apnea type: obstructive Qualified Code(s): G47.33 - Obstructive sleep apnea (adult) (pediatric) Category: Medical Code(s): G47.30 - Sleep apnea, unspecified (9) UTI (urinary tract infection) Current visit: Yes Status: Acute Qualifiers: Urinary tract infection type: site unspecified Hematuria presence: without hematuria Qualified Code(s): N39.0 - Urinary tract infection, site not specified Category: Medical Code(s): N39.0 - Urinary tract infection, site not specified (10) Tobacco use disorder Current visit: Yes Status: Chronic Category: Medical Code(s): F17.200 - Nicotine dependence, unspecified, uncomplicated (11) Hypertension Current visit: Yes Status: Chronic Category: Medical Code(s): I10 - Essential (primary) hypertension (12) Metabolic syndrome Current visit: Yes Status: Chronic Category: Medical Code(s): E88.81 - Metabolic syndrome (13) Diabetes mellitus Current visit: Yes Status: Chronic Category: Medical Code(s): E11.9 - Type 2 diabetes mellitus without complications - Assessment and plan all Dx Assessment and Plan for all problems:: Preliminary urine culture shows no growth. Echo is still pending. Patient is clinically much better. Possible discharge home today.
--- NOTE | 2019-05-30 08:35 | Progress Note ---
Subjective Date: 05/30/19 Time: 08:30 Principal diagnosis: confusion, LBBB Interval history: 69 yo WM in bed in NAD. Right wrist feels good. No complaints of chest pain. His confusion has resolved. Exam Vital signs and Labs for Last 24 Hours: Temp Pulse Resp BP Pulse Ox 97.6 F 67 18 141/72 H 92 L 05/30/19 07:59 05/30/19 07:59 05/30/19 07:59 05/30/19 07:59 05/30/19 07:59 Laboratory Results - last 24 hr 05/29/19 02:30: Urine Color Yellow, Urine Appearance Clear, Urine pH 6.0, Ur Specific [place] 1.020, Urine Protein Negative, Urine Glucose (UA) Negative, Urine Ketones Negative, Urine Blood Negative, Urine Nitrate Positive, Urine Bilirubin Negative, Urine Urobilinogen 0.2, Ur Leukocyte Esterase 1+ A, Urine WBC 5-10, Ur Squamous Epith Cells 3-5, Urine Bacteria 3+, Urine Mucus 1+ 05/29/19 07:06: Total Bilirubin 0.3, Direct Bilirubin 0.0, Conjugated Bilirubin 0.0, Indirect Bilirubin 0.3, Unconjugated Bilirubin 0.4, AST 40, ALT 36, Alkaline Phosphatase 78, Total Protein 6.7, Albumin 3.9, Triglycerides 113, Cholesterol 123 L, LDL Cholesterol Direct 71.09 L, VLDL Cholesterol 23, HDL Cholesterol 33 L, Cholesterol/HDL Ratio 3.7 H 05/29/19 08:41: Specimen Source Right brachial, O2 % Room air, ABG pH 7.44, ABG pCO2 36.8, ABG pO2 59.8 L, ABG HCO3 24.5, ABG Total CO2 25.6, ABG O2 Saturation 92, ABG Base Excess 0.4, Sha Test Acceptable 05/29/19 11:29: POC Glucose 100 05/29/19 11:45: Troponin I 0.03 05/29/19 18:48: POC Glucose 256 H 05/29/19 23:45: Troponin I < 0.01 05/29/19 23:54: POC Glucose 212 H 05/30/19 05:43: POC Glucose 183 H 05/30/19 06:05: WBC 12.2 H D, RBC 5.19, Hgb 15.9, Hct 47.8, MCV 92.2, MCH 30.7, MCHC 33.3, RDW 14.3, Plt Count 165, MPV 8.6, Neut % (Auto) 92.0 H, Lymph % (Auto) 5.7 L, [place] % (Auto) 1.9, Eos % (Auto) 0.2, Baso % (Auto) 0.1, Neut # (Auto) 11.2 H, Lymph # (Auto) 0.7, [place] # (Auto) 0.2, Eos # (Auto) 0.0, Baso # (Auto) 0.0 05/30/19 06:05: Sodium 138, Potassium 3.8, Chloride 102, Carbon Dioxide 25, Anion Gap 14.8, BUN 32 H D, Creatinine 1.40 H D, Estimated Creat Clear 72, Estimated GFR 50 L, Est GFR ( Amer) 61 D, Glucose 194 H D, Calcium 9.3 I & O for Last 24 hours: Intake & Output 05/27/19 05/28/19 05/29/19 05/30/19 11:59 11:59 11:59 11:59 Intake Total 270 / 270 660 / 660 Output Total 1974 / 1974 4000 / 4000 Balance -1705 / -1705 -3340 / -3340 Weight 222 lb 2 oz 222 lb 10.67 oz Microbiology Reports for the Last 24 Hours: Microbiology 05/29/19 02:30 Urine,Clean Catch Urine Culture - Preliminary Gram Negative Rods - *Routine HEENT Exam Head: Present: normocephalic Eye: Present: EOMI, PERRL ENT: Present: mucous membranes moist - *Routine Respiratory Exam Present: CTA bilaterally. Absent: accessory muscle use, rales, rhonchi, wheezes - *Routine Cardiovascular Exam Present: RRR. Absent: murmur, gallop, rubs - *Routine Extremities Exam Absent: edema, calf tenderness - *Routine Neurological Exam Present: alert, oriented X3, moving all extremities Progress Note: A&P (1) Atypical angina Status: Acute Current Visit: Yes (2) Troponin level elevated Status: Acute Current Visit: Yes (3) Left bundle branch block Status: Acute Current Visit: Yes (4) Acute dyspnea Status: Acute Current Visit: Yes (5) Acute confusion Status: Acute Current Visit: Yes (6) Hypoxemia Status: Acute Current Visit: Yes (7) Obesity hypoventilation syndrome Status: Acute Current Visit: Yes (8) Sleep apnea Status: Acute Current Visit: Yes (9) UTI (urinary tract infection) Status: Acute Current Visit: Yes (10) Tobacco use disorder Status: Chronic Current Visit: Yes (11) Hypertension Status: Chronic Current Visit: Yes (12) Metabolic syndrome Status: Chronic Current Visit: Yes (13) Diabetes mellitus Status: Chronic Current Visit: Yes Assessment and Plan for All Diagnoses:: 1. LBBB with frequent PVC's. Pt on atenolol 100 mg daily. With evidence of HHD on cath and echo, would recommend changing norvasc to verapamil for better HHD/arrhythmia control. 2. Elevated troponins but normal coronaries and No wall motion abnormalities. Etiology of elevated troponins likely due to demand ischemia from HHD. 3. Cardiac status stable and ok for discharge home from cardiology standpoint. Follow up in our office in 1-2 wks.
[2019-05-30 11:13] LABS: Lymphocytes % 6 % (10-50); Monocytes % 1 % (2-9); Neutrophils % 93 % (42-76); RBC Morphology Normal; Total Cells Counted 100
--- NOTE | 2019-05-30 15:57 | Cardiology Report ---
APPROVED REPORT EXAM: Comprehensive 2D, Doppler, and color-flow Echocardiogram Technical Training Instructor: Rosey Steward CRT Ht: 5 ft 7 in Wt: 220lbs BSA: 2.11 BP: 153/94 mmHg Indications: Shortness of Breath, AMS, SMOKER, INCREASED TROP 2D Dimensions LVOT 1.79 cm (M/F) 1.5-2.5 M-Mode Dimensions RVDd 2.85 cm (0.9-2.6)LVDd 4.67 cm (3.5-5.7) LVDs 3.52 cm (3.5-5.7)IVSd 1.23 cm (0.6-1.1) PWd 0.89 cm (0.6-1.1)EF (Teich) 48.80% FS 24.60% EDV (Teich) 100.80 mL ESV (Teich) 51.60 mL LV Diastology E/A Ratio 0.66 Mitral Valve MV A Velocity 62.00 (40-130 cm/s) Left Ventricle Left atrium is mildly enlarged, left ventricle is normal size, mild concentric left ventricular hypertrophy, visually estimated ejection fraction 55% with no obvious regional wall motion abnormality, endocardial surfaces are poorly visualized. Doppler evidence of impaired LV relaxation seen. Right Ventricle Right atrium and right ventricular normal size and contractility. Aortic Valve Aortic valve is minimally thickened and fibrosed, there is no aortic stenosis aortic insufficiency. Mitral Valve Mitral valve is grossly normal, there is mild mitral regurgitation. Tricuspid Valve Tricuspid valve is grossly normal, there is mild tricuspid regurgitation. Pulmonic Valve Pulmonic valve is poorly visualized. Great Vessels Aortic root is normal size. Pericardium No significant pericardial effusion noted. Conclusion 1. Mildly enlarged left atrium, normal left ventricular size, mild concentric left ventricular hypertrophy, visually estimated ejection fraction 55% with no regional wall motion abnormality, Doppler evidence of impaired relaxation seen, endocardial surfaces are very poorly visualized. 2. Mild mitral and tricuspid regurgitation. 3. No significant pericardial effusion noted. Electronically signed by : Jayant San, 05/30/2019 15:57:41
--- NOTE | 2019-06-03 13:52 | Discharge Summary ---
General - General Admission date:: 05/29/19 Discharge date: 05/30/19 HPI HPI: Mr. Childers is a 69-year-old male with a history of hypertension, metabolic syndrome, diverticulitis, and diabetes mellitus who presented to [facility] emergency room complaining of progressive shortness of breath. Patient states that he had been ill for several days. He states he has been eating and drinking normally. He denies diarrhea but states he has been vomiting. Patient is a poor historian this morning due to lethargy. Patient had extensive work-up in the emergency room: White blood cell count was found to be elevated at 12,300 and is normalized this a.m. Blood chemistries revealed BUN of 30 and creatinine of 1.3. Troponin I's were elevated at 0.05, 0.05, and 0.04, BNP was 491. He had 2 sets of blood gases with normal pH ,PCO2 ranged from 34.4-30.5, PO2 range 59.9-59.7, and bicarb of 21.7-23.9. Urinalysis did show 1+ leuk esterase 3+ bacteria and positive nitrates. Drug screen was negative; flu test was also negative for A and B. Chest x-ray showed minimal atelectatic or fibrotic changes and otherwise was negative. CT of the chest showed no evidence of acute pulmonary embolism. CT of the Head showed no Acute intracranial findings. CT of the abdomen and pelvis showed no acute abdominal or pelvic findings, diverticulosis, cholelithiasis, bilateral adrenal nodules. In the emergency room patient was started on Rocephin IV and given a total of 3 mg of lorazepam IV, 25 mg of promethazine, and 5 mg of Haldol IM. This a.m. at time of initial exam patient is quite lethargic. He does answer questions but speech is garbled. He Denies chest pain and shortness of breath. He denies abdominal pain. He denies nausea. Hospital Course Hospital Course: Cardiology was consulted due to the patient's elevated troponins and he was continued on IV fluids and as well as Levaquin and Rocephin. He underwent cardiac catheterization and his catheterization showed normal coronary arteries. By the evening after admission, he was alert and oriented back to his baseline. It was felt he was confused and incoherent due to the medications he had received through the emergency room. He stated his presentation to the hospital was due to feeling short of breath and having difficulty breathing. He did have a cough and a Ventolin inhaler was ordered. His lab work was all stable and his Donis catheter was removed. By 05/30/2019, the patient felt fine. He denied any chest pain or shortness of breath and had slept well and was eating well. He wanted to be discharged home. His urine culture was growing gram-negative's, therefore he was discharged on Levaquin. Of note, his final urine culture returned positive for Klebsiella pneumoniae, which was sensitive to Levaquin. His blood culture returned positive for Staphylococcus capitis which was pansensitive except for penicillins. Objective Vital signs: Temp Pulse Resp BP Pulse Ox 97.5 F L 69 18 137/65 94 L 05/30/19 12:00 05/30/19 12:00 05/30/19 12:00 05/30/19 12:05/30/19 12:00 Narrative: - Constitutional no acute distress Comments: Lethargic - *Routine HEENT Exam Head: Present: normocephalic, atraumatic Eye: Present: PERRL. Absent: conjunctival icterus, scleral injection ENT: Present: mucous membranes moist, oropharynx clear - *Routine Neck Exam Present: supple. Absent: carotid bruit, lymphadenopathy, thyromegaly - *Routine Respiratory Exam Present: CTA bilaterally (Anteriorly and posteriorly) - *Routine Cardiovascular Exam Present: RRR - *Routine Abdominal Exam Present: soft, normoactive bowel sounds. Absent: tenderness, distended Comments: Has Donis catheter in place - *Routine Extremities Exam Absent: edema, calf tenderness - *Routine Neurological Exam Present: alert, altered mental status, moving all extremities Results Labs on day of discharge: Preliminary micro results at discharge 05/28/19 22:40 Blood Culture - Preliminary Blood Staphylococcus capitis DS: Diagnosis - Discharge Diagnosis (1) Atypical angina Status: Acute (2) Troponin level elevated Status: Acute (3) Left bundle branch block Status: Acute (4) Acute dyspnea Status: Acute (5) Acute confusion Status: Acute (6) Hypoxemia Status: Acute (7) Obesity hypoventilation syndrome Status: Acute (8) Sleep apnea Status: Acute (9) UTI (urinary tract infection) Status: Acute (10) Tobacco use disorder Status: Chronic (11) Hypertension Status: Chronic (12) Metabolic syndrome Status: Chronic (13) Diabetes mellitus Status: Chronic Discharge Plan - Patient Discharge Instructions ACTIVITY: Continue current activity DIET: advance to your usual diet Patient Instructions: DI for Urinary Tract Infection (UTI) - Follow up Plan Follow up with: Akbar Domínguez MD [Staff Physician] - 06/04/19 1:15 pm Disposition: Home, Self-Residential Medications: Home Medications Medication Instructions Recorded Confirmed Type Potassium Chloride 20 meq PO DAILY 05/28/19 05/29/19 History Sitagliptin Phos/Metformin HCl 1 each PO DAILY 05/28/19 05/29/19 History [Janumet 50-500 mg Tablet] Tamsulosin HCl [Flomax 0.4mg 0.4 mg PO HS 05/28/19 05/29/19 History capsule] allopurinoL [Allopurinol 300mg 300 mg PO DAILY 05/28/19 05/29/19 History tablet] atenoloL [Atenolol 100mg Tab] 100 mg PO DAILY 05/28/19 05/29/19 History Triamterene/Hydrochlorothiazid 1 each PO DAILY 05/29/19 05/29/19 History [Maxzide 37.5 mg-25 mg Tablet] Albuterol Sulfate [Proventil-HFA 2 puffs IH Q4RT #1 puff 05/30/19 Rx 90mcg/puff Inh] Furosemide [Lasix 40mg tablet] 40 mg PO DAILY #30 tab 05/30/19 Rx Verapamil HCl [Calan SR 180mg 180 mg PO DAILY #30 tablet.er 05/30/19 Rx tablet] levoFLOXacin [Levaquin 750mg 750 mg PO 1100 #5 tab 05/30/19 Rx tablet] Prescriptions/Medication Reconciliation: New Verapamil HCl [Calan SR 180mg tablet] 180 mg PO DAILY #30 tablet.er Furosemide [Lasix 40mg tablet] 40 mg PO DAILY #30 tab levoFLOXacin [Levaquin 750mg tablet] 750 mg PO 1100 #5 tab Albuterol Sulfate [Proventil-HFA 90mcg/puff Inh] 2 puffs IH Q4RT #1 puff Continued atenoloL [Atenolol 100mg Tab] 100 mg PO DAILY Triamterene/Hydrochlorothiazid [Maxzide 37.5 mg-25 mg Tablet] 1 each PO DAILY Tamsulosin HCl [Flomax 0.4mg capsule] 0.4 mg PO HS allopurinoL [Allopurinol 300mg tablet] 300 mg PO DAILY Sitagliptin Phos/Metformin HCl [Janumet 50-500 mg Tablet] 1 each PO DAILY Potassium Chloride 20 meq PO DAILY Discontinued Indomethacin 25 mg PO TID Amlodipine Besylate [Amlodipine 5mg tab] 5 mg PO DAILY - Problem Reconciliation Problems Reviewed?: Yes
== END 2019-05-30 14:42 | disposition home or self-care (01) ==
LOC: ER 22:47 → 2ND 22:47
PROVIDERS: ADMIT Family Medicine; ATTEND Family Medicine
CPT/HCPCS: 36415; 70450; 71010; 71045; 71275; 74176; 80048; 80061; 80076; 80305; 81001; 82140; 82803; 82962; 83605; 83880; 84484; 85007; 85025; 87040; 87077; 87086; 87088; 87186; 87275; 87276; 93005; 93306; 93458; 94640; 94761; 96372; 96374; 96375; 96376; 99152; 99285; C1725; C1760; C1769; G0378; J1644; J1956; Q9967

== ENCOUNTER 2019-06-05 13:56 | Inpatient (IN) ==
[2019-06-05 16:04] LABS: Basophils # 0.1 K/mm3 (0-0.2); Basophils % 0.6 % (0.1-2.0); Eosinophils % 0.3 % (0.1-12.0); Hematocrit 49.3 % (42.0-52.0); Hemoglobin 16.6 g/dL (14.1-18.0); Lymphocytes # 0.9 K/mm3 (0.7-4.5); Lymphocytes % 6.1 % (10-50); Mean Corpuscular HGB Conc 33.7 g/dL (31.8-35.4); Mean Corpuscular Volume 90.1 fl (80-94); Monocytes # 0.9 K/mm3 (0.1-1.0); Neutrophils # 12.8 K/mm3 (1.8-7.8); Neutrophils % 87.1 % (37.0-80.0); Platelet Count 271 K/mm3 (142-424); Red Blood Count 5.47 M/mm3 (4.60-6.20); Red Cell Distribution Width 14.8 % (11.5-17.5); White Blood Count 14.7 K/mm3 (4.8-10.8)
[2019-06-05 16:13] LABS: Albumin Level 4.6 g/dl (3.5-5.0); Albumin/Globulin Ratio 1.2 (1.1-1.8); Bilirubin,Total 0.7 mg/dl (0.2-1.3); Calcium 9.7 mg/dl (8.4-10.2); Globulin 3.8 g/dL (1.3-3.2); Total Protein,Serum 8.4 g/dl (6.3-8.2)
--- NOTE | 2019-06-05 16:17 | Pharmacy Consult Notes ---
[facility] Pharmacy VTE Monitoring - Patient Demographics Admission date: 06/05/19 Report Date: 06/05/19 Time: 16:17 Allergies/Adverse Reactions: Patient Allergies shellfish derived [From SHELLFISH (FOOD/DRUG)] Allergy (Intermediate, Verified 05/29/19 05:29) DIARRHEA/VOMITING/COUGHING Height: 1.83 m Weight: 93.979 kg - VTE Risk Labs: VTE Related Lab Results Hgb 16.6 g/dL (14.1-18.0) 06/05/19 14:50 Hct 49.3 % (42.0-52.0) 06/05/19 14:50 Plt Count 271 K/mm3 (142-424) 06/05/19 14:50 - Prophylaxis VTE Prophylaxis Ordered?: Yes Types of VTE Prophylaxis: TEDS Knee High Location of Applied Device: Bilateral Lower Extremeties - VTE Diagnosis Confirmed Treatment or plan recommended: Continue Current Treatment
[2019-06-05 16:29] LABS: Lymphocytes % 9 % (10-50); Monocytes % 4 % (2-9); Neutrophils % 87 % (42-76); Total Cells Counted 100
[2019-06-05 16:30] LABS: RBC Morphology Normal
--- NOTE | 2019-06-05 19:10 | Progress Note ---
Internal Medicine - PN: Subj *Date: 06/05/19 *Time: 19:07 Interval history: See the H&P submitted from [facility]. The patient is admitted by Dr. Domínguez. He has dehydration and hypokalemia and weakness. He has an elevated white count which is been persistent despite antibiotic treatment as an outpatient. He was hospitalized recently with weakness and change in mental status. He had a very full work-up at that time. He had elevated troponins and required cardiac catheterization. His coronary arteries were found to be normal. He had a CT of the abdomen. The patient is diabetic. Recent A1c's have been quite good. Exam Vital signs and Labs for Last 24 Hours: Temp Pulse Resp BP Pulse Ox 97.5 F L 64 19 132/59 L 92 L 06/05/19 16:00 06/05/19 16:00 06/05/19 16:00 06/05/19 16:00 06/05/19 16:00 Laboratory Results - last 24 hr 06/05/19 14:50: WBC 14.7 H, RBC 5.47, Hgb 16.6, Hct 49.3, MCV 90.1, MCH 30.3, MCHC 33.7, RDW 14.8, Plt Count 271, Neut % (Auto) 87.1 H, Lymph % (Auto) 6.1 L, [place] % (Auto) 6.0, Eos % (Auto) 0.3, Baso % (Auto) 0.6, Neut # (Auto) 12.8 H, Lymph # (Auto) 0.9, [place] # (Auto) 0.9, Eos # (Auto) 0.0, Baso # (Auto) 0.1, Total Counted 100, Neutrophils % (Manual) 87 H, Lymphocytes % (Manual) 9 L, Monocytes % (Manual) 4, Platelet Estimate Normal, RBC Morphology Normal 06/05/19 14:50: Sodium 131 L, Potassium 3.0 L, Chloride 89 L, Carbon Dioxide 29, Anion Gap 16.0 H, BUN 57 H, Creatinine 2.40 H, Estimated Creat Clear 39, Estimated GFR 27 L, Est GFR ( Amer) 33 L, Glucose 145 H, Calcium 9.7, Total Bilirubin 0.7, AST 36, ALT 26, Alkaline Phosphatase 104, Total Protein 8.4 H D, Albumin 4.6, Globulin 3.8 H, Albumin/Globulin Ratio 1.2 I & O for Last 24 hours: Intake & Output 06/03/19 06/04/19 06/05/19 06/06/19 11:59 11:59 11:59 11:59 Intake Total 480 / 480 Balance 480 / 480 Weight 207 lb 3 oz Assessment and Plan (1) Dehydration Current visit: Yes Status: Acute Category: Medical Code(s): E86.0 - Dehydration (2) Hypokalemia Current visit: Yes Status: Acute Category: Medical Code(s): E87.6 - Hypokalemia (3) Type 2 diabetes mellitus Current visit: Yes Status: Acute Category: Medical Code(s): E11.9 - Type 2 diabetes mellitus without complications (4) Elevated white blood cell count Current visit: Yes Status: Acute Category: Medical Code(s): D72.829 - Elevated white blood cell count, unspecified (5) Cough Current visit: Yes Status: Acute Category: Medical Code(s): R05 - Cough - Assessment and plan all Dx Assessment and Plan for all problems:: See orders. Antibiotics will be continued including Rocephin IV and Bactrim DS p.o. twice daily. IV fluids and potassium will be administered. A CBC with a manual differential has been ordered and recognition of the persistent white blood cell count.
[2019-06-05 19:59] LABS: Microscopic, Urine URINE MICROSCOPIC (MICROSCOPIC)
[2019-06-05 20:02] LABS: Appearance,Urine CLEAR (Clear); Bilirubin,Urine Negative (Negative); Blood, Urine Negative (Negative); Color,Urine YELLOW (Yellow); Glucose,Urine (UA) Negative (Negative); Ketones,Urine Negative (Negative); Leukocyte Esterase,Urine Negative (Negative); Protein,Urine Negative (Negative); Urobilinogen,Urine 0.2 EU/dl (0.2)
[2019-06-05 20:18] LABS: Bacteria,Urine Trace /lpf; Squamous Epithelial Cell,Urine Occasional #/hpf (0-5); WBC,Urine Occasional #/hpf (0-3)
[2019-06-06 08:06] LABS: Anion Gap 17.5 mEq/L (5-15); Basophils # 0.1 K/mm3 (0-0.2); Basophils % 0.8 % (0.1-2.0); Calcium 8.8 mg/dl (8.4-10.2); Eosinophils # 0.1 K/mm3 (0.0-0.4); Eosinophils % 0.8 % (0.1-12.0); Hematocrit 45.1 % (42.0-52.0); Hemoglobin 15.2 g/dL (14.1-18.0); Lymphocytes % 10.4 % (10-50); Mean Corpuscular HGB Conc 33.6 g/dL (31.8-35.4); Mean Corpuscular Volume 91.3 fl (80-94); Mean Platelet Volume 8.7 fl (7.4-10.4); Monocytes # 0.6 K/mm3 (0.1-1.0); Monocytes % 6.2 % (1.7-9.3); Neutrophils # 8.1 K/mm3 (1.8-7.8); Neutrophils % 81.8 % (37.0-80.0); Platelet Count 198 K/mm3 (142-424); Red Blood Count 4.94 M/mm3 (4.60-6.20)
--- NOTE | 2019-06-06 09:02 | Progress Note ---
Internal Medicine - PN: Subj *Date: 06/06/19 *Time: 08:58 Interval history: Pt states he is feeling a little better today. He denies any pain but just says he's weak. He did not sleep at all last night. He states this is due to the fact that he did not have any Valium. He was able to eat the first meal he is had in 3 to 4 days. Exam Vital signs and Labs for Last 24 Hours: Temp Pulse Resp BP Pulse Ox 97.9 F 73 18 136/54 L 95 06/06/19 08:00 06/06/19 08:00 06/06/19 08:00 06/06/19 08:00 06/06/19 08:00 Laboratory Results - last 24 hr 06/05/19 14:50: WBC 14.7 H, RBC 5.47, Hgb 16.6, Hct 49.3, MCV 90.1, MCH 30.3, MCHC 33.7, RDW 14.8, Plt Count 271, Neut % (Auto) 87.1 H, Lymph % (Auto) 6.1 L, [place] % (Auto) 6.0, Eos % (Auto) 0.3, Baso % (Auto) 0.6, Neut # (Auto) 12.8 H, Lymph # (Auto) 0.9, [place] # (Auto) 0.9, Eos # (Auto) 0.0, Baso # (Auto) 0.1, Total Counted 100, Neutrophils % (Manual) 87 H, Lymphocytes % (Manual) 9 L, Monocytes % (Manual) 4, Platelet Estimate Normal, RBC Morphology Normal 06/05/19 14:50: Sodium 131 L, Potassium 3.0 L, Chloride 89 L, Carbon Dioxide 29, Anion Gap 16.0 H, BUN 57 H, Creatinine 2.40 H, Estimated Creat Clear 39, Estimated GFR 27 L, Est GFR ( Amer) 33 L, Glucose 145 H, Calcium 9.7, Total Bilirubin 0.7, AST 36, ALT 26, Alkaline Phosphatase 104, Total Protein 8.4 H D, Albumin 4.6, Globulin 3.8 H, Albumin/Globulin Ratio 1.2 06/05/19 19:50: Urine Color Yellow, Urine Appearance Clear, Urine pH 6.0, Ur Specific [place] 1.020, Urine Protein Negative, Urine Glucose (UA) Negative, Urine Ketones Negative, Urine Blood Negative, Urine Nitrate Negative, Urine Bilirubin Negative, Urine Urobilinogen 0.2, Ur Leukocyte Esterase Negative, Urine WBC Occasional, Ur Squamous Epith Cells Occasional, Urine Bacteria Trace 06/05/19 21:04: POC Glucose 120 H 06/06/19 05:19: POC Glucose 108 06/06/19 07:14: WBC 10.0 D, RBC 4.94, Hgb 15.2, Hct 45.1, MCV 91.3, MCH 30.7, MCHC 33.6, RDW 14.0, Plt Count 198 D, MPV 8.7, Neut % (Auto) 81.8 H, Lymph % (Auto) 10.4, [place] % (Auto) 6.2, Eos % (Auto) 0.8, Baso % (Auto) 0.8, Neut # (Auto) 8.1 H, Lymph # (Auto) 1.0, [place] # (Auto) 0.6, Eos # (Auto) 0.1, Baso # (Auto) 0.1 06/06/19 07:14: Sodium 130 L, Potassium 2.5 L*, Chloride 89 L, Carbon Dioxide 26, Anion Gap 17.5 H, BUN 44 H, Creatinine 2.10 H, Estimated Creat Clear 46, Estimated GFR 32 L, Est GFR ( Amer) 38 L, Glucose 99 D, Calcium 8.8 I & O for Last 24 hours: Intake & Output 06/03/19 06/04/19 06/05/19 06/06/19 11:59 11:59 11:59 11:59 Intake Total 2495 / 2495 Balance 2495 / 2495 Weight 211 lb 9 oz Radiology Reports for the Last 24 Hours: CXR - Atelectasis or infiltrate in the left lung base otherwise negative - Constitutional no acute distress - *Routine Respiratory Exam Present: CTA bilaterally - *Routine Cardiovascular Exam Present: RRR - *Routine Abdominal Exam Present: soft, normoactive bowel sounds. Absent: tenderness - *Routine Extremities Exam Present: edema (trace pretibial edema bilaterally). Absent: cyanosis, clubbing - *Routine Skin Exam Present: warm. Absent: rash - *Routine Neurological Exam Present: alert, oriented X3 Assessment and Plan (1) Dehydration Current visit: Yes Status: Acute Category: Medical Code(s): E86.0 - Dehydration (2) Hypokalemia Current visit: Yes Status: Acute Category: Medical Code(s): E87.6 - Hypokalemia (3) Type 2 diabetes mellitus Current visit: Yes Status: Acute Category: Medical Code(s): E11.9 - Type 2 diabetes mellitus without complications (4) Elevated white blood cell count Current visit: Yes Status: Acute Category: Medical Code(s): D72.829 - Elevated white blood cell count, unspecified (5) Cough Current visit: Yes Status: Acute Category: Medical Code(s): R05 - Cough - Assessment and plan all Dx Assessment and Plan for all problems:: Chest x-ray shows infiltrate versus atelectasis. Patient has been started on antibiotics. His potassium is low today, will give a run of potassium. White blood cell count has normalized.
[2019-06-06 19:20] LABS: Anion Gap 15.2 mEq/L (5-15); Calcium 8.6 mg/dl (8.4-10.2)
[2019-06-07 06:54] LABS: Basophils # 0.1 K/mm3 (0-0.2); Basophils % 0.7 % (0.1-2.0); Eosinophils # 0.1 K/mm3 (0.0-0.4); Eosinophils % 1.6 % (0.1-12.0); Hematocrit 43.9 % (42.0-52.0); Lymphocytes % 11.5 % (10-50); Mean Corpuscular HGB Conc 34.1 g/dL (31.8-35.4); Mean Corpuscular Volume 89.2 fl (80-94); Mean Platelet Volume 8.2 fl (7.4-10.4); Monocytes # 0.6 K/mm3 (0.1-1.0); Monocytes % 7.7 % (1.7-9.3); Neutrophils # 6.5 K/mm3 (1.8-7.8); Neutrophils % 78.4 % (37.0-80.0); Platelet Count 164 K/mm3 (142-424); Red Blood Count 4.92 M/mm3 (4.60-6.20); Red Cell Distribution Width 13.9 % (11.5-17.5); White Blood Count 8.3 K/mm3 (4.8-10.8)
[2019-06-07 07:00] LABS: Anion Gap 13.9 mEq/L (5-15); Calcium 8.4 mg/dl (8.4-10.2)
--- NOTE | 2019-06-07 08:34 | Progress Note ---
Internal Medicine - PN: Subj *Date: 06/07/19 *Time: 08:32 Interval history: Patient states he has no pain today but is just exhausted. He slept only for about 35 minutes last night. He did eat breakfast this morning and denies any nausea or vomiting. He denies any abdominal pain. Exam Vital signs and Labs for Last 24 Hours: Temp Pulse Resp BP Pulse Ox 98.6 F 68 18 136/58 L 93 L 06/07/19 04:00 06/07/19 06:09 06/07/19 04:00 06/07/19 04:00 06/07/19 06:09 Laboratory Results - last 24 hr 06/06/19 10:51: POC Glucose 97 06/06/19 16:05: POC Glucose 104 06/06/19 19:00: Sodium 131 L, Potassium 3.2 L D, Chloride 92 L, Carbon Dioxide 27, Anion Gap 15.2 H, BUN 31 H D, Creatinine 1.80 H, Estimated Creat Clear 53, Estimated GFR 38 L, Est GFR ( Amer) 46 L D, Glucose 104 H, Calcium 8.6 06/06/19 20:26: POC Glucose 99 06/07/19 06:22: POC Glucose 88 06/07/19 06:25: WBC 8.3, RBC 4.92, Hgb 15.0, Hct 43.9, MCV 89.2, MCH 30.4, MCHC 34.1, RDW 13.9, Plt Count 164, MPV 8.2, Neut % (Auto) 78.4, Lymph % (Auto) 11.5, [place] % (Auto) 7.7, Eos % (Auto) 1.6, Baso % (Auto) 0.7, Neut # (Auto) 6.5, Lymph # (Auto) 1.0, [place] # (Auto) 0.6, Eos # (Auto) 0.1, Baso # (Auto) 0.1 06/07/19 06:25: Sodium 129 L, Potassium 3.9 D, Chloride 95 L, Carbon Dioxide 24, Anion Gap 13.9, BUN 25 H, Creatinine 1.70 H, Estimated Creat Clear 57, Estimated GFR 40 L, Est GFR ( Amer) 49 L, Glucose 90, Calcium 8.4 I & O for Last 24 hours: Intake & Output 06/04/19 06/05/19 06/06/19 06/07/19 11:59 11:59 11:59 11:59 Intake Total 2495 / 2495 4335 / 4335 Output Total 1325 / 1325 Balance 2495 / 2495 3010 / 3010 Weight 211 lb 9 oz 215 lb 4 oz - Constitutional no acute distress - *Routine Respiratory Exam Present: wheezes (faint expiratory). Absent: rales - *Routine Cardiovascular Exam Present: RRR - *Routine Abdominal Exam Present: soft, normoactive bowel sounds. Absent: tenderness - *Routine Extremities Exam Absent: cyanosis, clubbing, edema - *Routine Skin Exam Present: warm. Absent: rash - *Routine Neurological Exam Present: alert, oriented X3 Assessment and Plan (1) Dehydration Current visit: Yes Status: Acute Category: Medical Code(s): E86.0 - Dehydration (2) Hypokalemia Current visit: Yes Status: Acute Category: Medical Code(s): E87.6 - Hypokalemia (3) Type 2 diabetes mellitus Current visit: Yes Status: Acute Category: Medical Code(s): E11.9 - Type 2 diabetes mellitus without complications (4) Elevated white blood cell count Current visit: Yes Status: Acute Category: Medical Code(s): D72.829 - Elevated white blood cell count, unspecified (5) Cough Current visit: Yes Status: Acute Category: Medical Code(s): R05 - Cough (6) Hyponatremia Current visit: Yes Status: Acute Category: Medical Code(s): E87.1 - Hypo- osmolality and hyponatremia - Assessment and plan all Dx Assessment and Plan for all problems:: Potassium has normalized. Sodium is lower. White count is normal. Will discuss further care with Dr. Domínguez.
[2019-06-08 07:48] LABS: Basophils % 0.5 % (0.1-2.0); Eosinophils # 0.1 K/mm3 (0.0-0.4); Eosinophils % 1.1 % (0.1-12.0); Hematocrit 43.9 % (42.0-52.0); Mean Corpuscular HGB Conc 34.2 g/dL (31.8-35.4); Mean Corpuscular Volume 90.4 fl (80-94); Mean Platelet Volume 8.3 fl (7.4-10.4); Monocytes # 0.6 K/mm3 (0.1-1.0); Monocytes % 8.5 % (1.7-9.3); Neutrophils # 5.7 K/mm3 (1.8-7.8); Neutrophils % 76.9 % (37.0-80.0); Platelet Count 139 K/mm3 (142-424); Red Blood Count 4.85 M/mm3 (4.60-6.20); White Blood Count 7.4 K/mm3 (4.8-10.8)
[2019-06-08 08:38] LABS: Anion Gap 13.7 mEq/L (5-15); Calcium 8.8 mg/dl (8.4-10.2)
--- NOTE | 2019-06-08 12:25 | Progress Note ---
Internal Medicine - PN: Subj *Date: 06/08/19 *Time: 09:00 Interval history: Stools showed C. diff and E. coli. Started on Metronidazole last night. Rocephin and Bactrim D/C'd. Clinically stable. Exam Vital signs and Labs for Last 24 Hours: Temp Pulse Resp BP Pulse Ox 98.4 F 85 16 101/52 L 92 L 06/08/19 08:00 06/08/19 08:00 06/08/19 08:00 06/08/19 08:00 06/08/19 08:00 Laboratory Results - last 24 hr 06/07/19 16:26: POC Glucose 100 06/07/19 20:07: POC Glucose 90 06/07/19 23:32: Stl Aeromonas (PCR) Not detected, Stl C. cayetanensis PCR Not detected, Stool Rotavirus (PCR) Not detected, Stl Adenov F 40/41 PCR Not detected, Stool Astrovirus (PCR) Not detected, Stool Campylobacter PCR Not detected, Stl C.difficile Tox PCR Detected A, Stool Cryptosporidium PCR Not detected, Stl E.coli Shiga Tox PCR Not detected, Stool E coli O157 PCR Not detected, Stl Enterotoxigenic E PCR Not detected, Stool EPEC (PCR) Detected A, Stool EAEC (PCR) Detected A, Stl E. histolytica PCR Not detected, Stool Giardia Lamblia PCR Not detected, Stool Salmonella PCR Not detected, Stool Sapovirus (PCR) Not detected, Stl P. shigelloides PCR Not detected, Stl Shigella/EIEC PCR Not detected, St Y.enterocolitica PCR Not detected, Stool Vibrio (PCR) Not detected, Stl Vibrio cholerae PCR Not detected, Stl Norovirus GI/GII PCR Not detected 06/08/19 06:10: POC Glucose 108 06/08/19 06:43: WBC 7.4, RBC 4.85, Hgb 15.0, Hct 43.9, MCV 90.4, MCH 30.9, MCHC 34.2, RDW 14.0, Plt Count 139 L, MPV 8.3, Neut % (Auto) 76.9, Lymph % (Auto) 13.0, [place] % (Auto) 8.5, Eos % (Auto) 1.1, Baso % (Auto) 0.5, Neut # (Auto) 5.7, Lymph # (Auto) 1.0, [place] # (Auto) 0.6, Eos # (Auto) 0.1, Baso # (Auto) 0.0 06/08/19 06:43: Sodium 130 L, Potassium 3.7, Chloride 98, Carbon Dioxide 22, Anion Gap 13.7, BUN 21 H, Creatinine 1.60 H, Estimated Creat Clear 59, Estimated GFR 43 L, Est GFR ( Amer) 52 L, Glucose 99, Calcium 8.8 I & O for Last 24 hours: Intake & Output 06/06/19 06/07/19 06/08/19 06/09/19 11:59 11:59 11:59 12:59 Intake Total 2495 / 2495 4455 / 4455 950 / 950 Output Total 1325 / 1325 479 / 479 Balance 2495 / 2495 3130 / 3130 471 / 471 Weight 211 lb 9 oz 215 lb 4 oz 207 lb Microbiology Reports for the Last 24 Hours: Microbiology 06/05/19 16:35 Blood Blood Culture - Preliminary NO GROWTH AFTER 48 HOURS 06/05/19 14:55 Blood Blood Culture - Preliminary NO GROWTH AFTER 48 HOURS - Constitutional no acute distress - *Routine HEENT Exam Head: Present: normocephalic Eye: Present: PERRL ENT: Present: mucous membranes moist - *Routine Respiratory Exam Present: CTA bilaterally - *Routine Cardiovascular Exam Present: RRR - *Routine Abdominal Exam Present: soft. Absent: tenderness - *Routine Neurological Exam Present: alert Assessment and Plan (1) Dehydration Current visit: Yes Status: Acute Category: Medical Code(s): E86.0 - Dehydration (2) Hypokalemia Current visit: Yes Status: Acute Category: Medical Code(s): E87.6 - Hypokalemia (3) Type 2 diabetes mellitus Current visit: Yes Status: Acute Category: Medical Code(s): E11.9 - Type 2 diabetes mellitus without complications (4) Elevated white blood cell count Current visit: Yes Status: Acute Category: Medical Code(s): D72.829 - Elevated white blood cell count, unspecified (5) Cough Current visit: Yes Status: Acute Category: Medical Code(s): R05 - Cough (6) Hyponatremia Current visit: Yes Status: Acute Category: Medical Code(s): E87.1 - Hypo- osmolality and hyponatremia - Assessment and plan all Dx Assessment and Plan for all problems:: Continue Metronidazole.
--- NOTE | 2019-06-09 11:27 | Progress Note ---
Internal Medicine - PN: Subj *Date: 06/09/19 *Time: 11:24 Interval history: The patient is fairly stable. He reports 5 loose stools yesterday. He has had some trouble controlling his bowel movements. His vital signs and lab work are all good. He is not in any distress. Exam Vital signs and Labs for Last 24 Hours: Temp Pulse Resp BP Pulse Ox 98.3 F 78 16 148/82 H 94 L 06/09/19 07:54 06/09/19 07:54 06/09/19 07:54 06/09/19 07:54 06/09/19 08:00 Laboratory Results - last 24 hr 06/08/19 11:16: POC Glucose 98 06/08/19 16:49: POC Glucose 111 H 06/08/19 20:05: POC Glucose 111 H 06/09/19 11:12: POC Glucose 94 I & O for Last 24 hours: Intake & Output 06/06/19 06/07/19 06/08/19 06/09/19 11:59 11:59 11:59 12:59 Intake Total 2495 / 2495 4455 / 4455 950 / 950 860 / 860 Output Total 1325 / 1325 479 / 479 700 / 700 Balance 2495 / 2495 3130 / 3130 471 / 471 160 / 160 Weight 211 lb 9 oz 215 lb 4 oz 207 lb 207 lb 8 oz - Constitutional no acute distress - *Routine HEENT Exam Head: Present: normocephalic Eye: Present: PERRL ENT: Present: mucous membranes moist - *Routine Respiratory Exam Present: CTA bilaterally - *Routine Cardiovascular Exam Present: RRR - *Routine Abdominal Exam Present: soft. Absent: tenderness (Hyperactive bowel sounds) - *Routine Exam Scrotal: Present: swelling (He has a hydrocele on the right.) - *Routine Extremities Exam Absent: edema - *Routine Neurological Exam Present: alert, oriented X3 Assessment and Plan (1) Dehydration Current visit: Yes Status: Acute Category: Medical Code(s): E86.0 - Dehydration (2) Hypokalemia Current visit: Yes Status: Acute Category: Medical Code(s): E87.6 - Hypokalemia (3) Type 2 diabetes mellitus Current visit: Yes Status: Acute Category: Medical Code(s): E11.9 - Type 2 diabetes mellitus without complications (4) C. difficile colitis Current visit: Yes Status: Acute Category: Medical Code(s): A04.72 - Enterocolitis due to Clostridium difficile, not specified as recurrent (5) Elevated white blood cell count Current visit: Yes Status: Acute Category: Medical Code(s): D72.829 - Elevated white blood cell count, unspecified (6) Cough Current visit: Yes Status: Acute Category: Medical Code(s): R05 - Cough (7) Hyponatremia Current visit: Yes Status: Acute Category: Medical Code(s): E87.1 - Hypo- osmolality and hyponatremia - Assessment and plan all Dx Assessment and Plan for all problems:: Discharge today. Metronidazole 500 mg p.o. 3 times daily. Follow-up in [facility] this week.
[2019-06-09 11:50] LABS: Anion Gap 10.5 mEq/L (5-15)
[2019-06-09 11:51] LABS: Calcium 8.6 mg/dl (8.4-10.2)
--- NOTE | 2019-06-10 13:17 | Discharge Summary ---
General - General Admission date:: 06/05/19 Discharge date: 06/09/19 HPI HPI: Mr. Childers is a 69-year-old female who had just recently been discharged from [facility] due to an elevated white blood cell count and altered mental status. He had a Klebsiella urinary tract infection and was currently on Bactrim. He had had vomiting along with significant weight loss and he presented to the office of [facility] with a white blood cell count that was once again elevated despite antibiotic treatment as an outpatient. He had dehydration and hypokalemia and weakness. He was admitted for further evaluation and treatment. Hospital Course Hospital Course: The patient was admitted and a CBC was ordered for slide review due to his bandemia. A chest x-ray was ordered showing atelectasis versus infiltrate in the left lung base. He was started on antibiotics including Rocephin and Bactrim. IV fluids were ordered and potassium was administered due to hypokalemia. A CBC with manual differential was ordered due to his persistent white blood cell count. The patient was able to eat and did begin feeling better. He had to be given a run of potassium due to hypokalemia. His white blood cell count normalized. He was able to be saline locked. He had a diarrhea panel which showed C. difficile and E. coli. He was started on Flagyl and his Rocephin and Bactrim were discontinued. His symptoms improved although he continued with diarrhea. He was stable to be discharged home on Flagyl 500 mg 3 times daily and will follow-up in the office of [facility]. Objective Vital signs: Temp Pulse Resp BP Pulse Ox 98.3 F 78 16 148/82 H 94 L 06/09/19 07:54 06/09/19 07:54 06/09/19 07:54 06/09/19 07:54 06/09/19 08:00 Narrative: General: No acute distress, noted weight loss HEENT: Unremarkable Oral cavity: Tongue and mucosa dry Neck: Supple, no lymphadenopathy Chest: Normal shape and expansion Heart: Regular sinus rhythm Lungs: Clear to auscultation, no wheezes or rales Abdomen: Soft and nontender, no organomegaly or masses Neurologic: no focal deficits Skin: Normal, no rash Back: Normal Extremities: Minimal leg edema Results Labs on day of discharge: Labs from last 24 hours 06/09/19 06:28 POC Glucose 92 Preliminary micro results at discharge 06/05/19 16:35 Blood Culture - Preliminary Blood NO GROWTH AFTER 48 HOURS 06/05/19 14:55 Blood Culture - Preliminary Blood NO GROWTH AFTER 48 HOURS DS: Diagnosis - Discharge Diagnosis (1) Dehydration Status: Acute (2) Hypokalemia Status: Acute (3) Type 2 diabetes mellitus Status: Acute (4) C. difficile colitis Status: Acute (5) Elevated white blood cell count Status: Acute (6) Cough Status: Acute (7) Hyponatremia Status: Acute Discharge Plan - Patient Discharge Instructions ACTIVITY: Limited activity DIET: advance to your usual diet Patient Instructions: DI for Escherichia Coli Infection, Type 2 Diabetes, DI for Dehydration -- Adult, DI for Hypokalemia, DI for Hyponatremia, DI for Clostridium difficile Infection - Follow up Plan Follow up with: Akbar Domínguez MD [Primary Care Provider] - 06/13/19 Disposition: Home, Self-Shelter Medications: Home Medications Medication Instructions Recorded Confirmed Type Sitagliptin Phos/Metformin HCl 1 each PO DAILY 05/28/19 06/05/19 History [Janumet 50-500 mg Tablet] Tamsulosin HCl [Flomax 0.4mg 0.4 mg PO HS 05/28/19 06/05/19 History capsule] allopurinoL [Allopurinol 300mg 300 mg PO DAILY 05/28/19 06/05/19 History tablet] atenoloL [Atenolol 100mg Tab] 100 mg PO DAILY 05/28/19 06/05/19 History Triamterene/Hydrochlorothiazid 37.5 mg PO DAILY 05/29/19 06/05/19 History [Maxzide 37.5 mg-25 mg Tablet] Albuterol Sulfate [Proventil-HFA 2 puffs IH Q4HP PRN 06/06/19 06/06/19 History 90mcg/puff Inh] Verapamil HCl [Verapamil ER] 180 mg PO DAILY 06/06/19 06/06/19 History Potassium Chloride 20 meq PO BID #60 tab 06/09/19 Rx metroNIDAZOLE [metroNIDAZOLE 500mg 500 mg PO TID #20 tab 06/09/19 Rx Tablet] Prescriptions/Medication Reconciliation: New metroNIDAZOLE [metroNIDAZOLE 500mg Tablet] 500 mg PO TID #20 tab Continued atenoloL [Atenolol 100mg Tab] 100 mg PO DAILY Triamterene/Hydrochlorothiazid [Maxzide 37.5 mg-25 mg Tablet] 37.5 mg PO DAILY Albuterol Sulfate [Proventil-HFA 90mcg/puff Inh] 2 puffs IH Q4HP PRN PRN Reason: SHORTNESS OF AIR Tamsulosin HCl [Flomax 0.4mg capsule] 0.4 mg PO HS allopurinoL [Allopurinol 300mg tablet] 300 mg PO DAILY Sitagliptin Phos/Metformin HCl [Janumet 50-500 mg Tablet] 1 each PO DAILY Verapamil HCl [Verapamil ER] 180 mg PO DAILY Changed Potassium Chloride 20 meq PO BID #60 tab Discontinued Furosemide [Furosemide 40MG tAB] 40 mg PO DAILY Sulfamethoxazole/Trimethoprim [Sulfamethoxazole-Tmp Ds Tablet] 1 tab PO BID Indomethacin [Indocin 25mg capsule] 25 mg PO TID - Problem Reconciliation Problems Reviewed?: Yes
== END 2019-06-09 14:39 | disposition home or self-care (01) | DRG 372 ==
LOC: 2ND → OBSVTOIN 14:02
PROVIDERS: ADMIT Family Medicine; ATTEND Family Medicine

== ENCOUNTER → 2020-09-30 12:20 | Outpatient (CLI) | payer MEDICARE, BC, SELFPAY ==
--- NOTE | 2020-09-30 12:32 | XR_ITS ---
PROCEDURE: XR KNEE RT 3V CLINICAL INDICATION: RT KNEE PAIN COMPARISON: No exams were available for comparison FINDINGS: No fracture or dislocation. No lytic or blastic change. There is normal mineralization. The joint spaces are well-preserved. No significant degenerative/arthritic changes. No erosive changes evident. Other findings:None. IMPRESSION: No acute findings. Dictated by: Sha Weaver MD 09/30/2020 13:02 Sha Weaver MD in [place] 09/30/2020 13:02
== END ==
PROVIDERS: PCP Family Medicine; Visit Provider Family Medicine
DX: M25.561 Pain in right knee (principal)
CPT/HCPCS: 73562

== ENCOUNTER → 2020-10-28 12:54 | Outpatient (CLI) | payer MEDICARE, BC, SELFPAY ==
--- NOTE | 2020-10-28 13:05 | XR_ITS ---
PROCEDURE: XR LUMBAR SPINE MIN 4V CLINICAL INDICATION: BACK PAIN COMPARISON: No exams were available for comparison FINDINGS: There is mild lumbar scoliosis convex right. There is mild multilevel degenerative disc disease most prominent at L1-L2 and L5-S1. Multilevel endplate osteophytes are also noted. Facet arthritic changes are present at L5-S1. No fracture or dislocation. No lytic or blastic change. Other findings:Diffuse vascular calcification. IMPRESSION: Scoliosis with degenerative changes as described above. Dictated by: Sha Weaver MD 10/28/2020 14:03 Sha Weaver MD in [facility] 10/28/2020 14:03
== END ==
PROVIDERS: PCP Family Medicine; Visit Provider Family Medicine
DX: M54.5 Low back pain (principal)
CPT/HCPCS: 72110

== ENCOUNTER → 2020-11-09 12:44 | Outpatient (CLI) | payer MEDICARE, BC, SELFPAY | PROVIDERS: PCP Family Medicine; Visit Provider Family Medicine | DX: Z20.822 Contact with and (suspected) exposure to COVID-19 (principal) | CPT/HCPCS: U0003 ==

== ENCOUNTER → 2021-05-20 12:40 | Outpatient (CLI) | payer MEDICARE, BC, SELFPAY ==
--- NOTE | 2021-05-20 12:45 | CT_ITS ---
FINAL REPORT CLINICAL HISTORY: H/O NICOTINE DEPENDENCE 1 pack per day for 40 years with 1 year of quiting COMPARISON: May 2019 FINDINGS: CTDI vol (mGy): 2.9 DLP (mGy-cm): 111.[address] images of the chest were obtained using the low-dose protocol for screening. There is bilateral gynecomastia. There is no evidence of mediastinal or hilar mass or adenopathy. No axillary mass or adenopathy is identified. On the lung window images, there are several calcified granulomas. There is a 4 mm right middle lobe nodule on image #52 which is stable. There is mild bibasilar scarring. Limited images of the upper abdomen show gallstones in the gallbladder. There is a low-attenuation nodule in the right upper quadrant which is likely an adenoma. IMPRESSION: Stable 4 mm right middle lobe nodule. Lung RADS category 2. Recommend 12 month followup low-dose CT for further evaluation. Reviewed, Interpreted and Dictated by Skinny Alford III, MD Transcribed by SOPHIE Lowery Authenticated by Skinny Alford III, MD on 05/20/2021 01:59:48 PM [facility]
== END ==
PROVIDERS: PCP Family Medicine; Visit Provider Family Medicine
DX: Z87.891 Personal history of nicotine dependence (principal); Z12.2 Encounter for screening for malignant neoplasm of respiratory organs
CPT/HCPCS: 71271

== ENCOUNTER 2021-10-07 12:29 | Emergency (ER) | payer MEDICARE, BC, SELFPAY ==
[2021-10-07] VITALS (8 sets, daily range): BP systolic 100–129; BP diastolic 59–75; PULSE 52–61; RESP 18; TEMP 36.6; O2SAT 97–100; BMI 27.2
--- NOTE | 2021-10-07 13:07 | XR_ITS ---
FINAL REPORT CLINICAL HISTORY: SOA COMPARISON: June 05, 2019 FINDINGS: A single portable view of the chest was obtained. The heart size and pulmonary vascularity are within normal limits. The mediastinum is within normal limits. There is mild bibasilar atelectasis. The bony thorax is intact. IMPRESSION: Mild bibasilar atelectasis. Reviewed, Interpreted and Dictated by Skinny Alford III, MD Transcribed by Faby Marks Authenticated and [facility]
--- NOTE | 2021-10-07 13:14 | HMH.EDGENADL ---
ED Disposition Clinical Impression: Viral upper respiratory infection, Hypokalemia, Dehydration Disposition: Home, Self-Care Condition on Discharge: Good Instructions: DI for Viral Upper Respiratory Infection -- Adult, DI for Dehydration -- Adult, DI for Hypokalemia Additional Instructions: Restart your potassium pills twice a day. Drink plenty of fluids each day. Follow-up primary care provider next week if not improved. Return the emergency department if worsening. Referrals: Akbar Domínguez MD [Primary Care Provider] - - Critical Care Critical Care Time: No Attestation: On 10/07/21, the high probability of a clinically significant, sudden or life threatening deterioration of the following system(s) required my full and direct attention, intervention and personal management. The time I documented below is in addition to time spent performing reported procedures but includes the following listed in this critical care notation. Medical Decision Making - Alcides Inquiry Pt receiving controlled substance: No Vital Signs: 10/07/21 12:30 10/07/21 13:31 10/07/21 14:00 Temperature 97.8 F Temperature Source Oral Pulse Rate 52 L 54 L Pulse Rate [Right Radial] 58 L Respiratory Rate 18 18 18 Blood Pressure 129/70 110/72 Blood Pressure [Right Arm] 124/75 Blood Pressure Mean 91 92 Blood Pressure Mean [Right Arm] 91 Blood Pressure Source [Right Arm] Automatic Cuff Blood Pressure Position [Right Arm] Sitting 02 Sat by Pulse Oximetry 97 97 100 Oxygen Delivery Method Room Air - Lab Data Lab Results 10/07/21 13:00: WBC 9.6, RBC 5.52, Hgb 17.1, Hct 51.4, MCV 93.2, MCH 31.1, MCHC 33.3, RDW 14.3, Plt Count 309, MPV 8.8, Neut % (Auto) 73.5, Lymph % (Auto) 16.8, Will % (Auto) 6.0, Eos % (Auto) 1.5, Baso % (Auto) 2.2 H, Neut # (Auto) 7.1, Lymph # (Auto) 1.6, Will # (Auto) 0.6, Eos # (Auto) 0.1, Baso # (Auto) 0.2 10/07/21 13:49: Sodium 135 L, Potassium 2.7 L*, Chloride 90 L, Carbon Dioxide 34 H, Anion Gap 13.7, BUN 40 H, Creatinine 1.90 H, Estimated Creat Clear 47, Estimated GFR 35 L, Est GFR ( Amer) 43 L, Glucose 152 H, Calcium 9.2, Total Bilirubin 0.7, AST 35, ALT 25, Alkaline Phosphatase 167 H, Troponin I 0.03, Total Protein 8.6 H, Albumin 4.5, Globulin 4.1 H, Albumin/Globulin Ratio 1.1 10/07/21 13:49: SARS-CoV-2 (PCR) Not detected, Influenza A Untype (PCR) Not detected, Influenza Type B (PCR) Not detected Result diagrams: 10/07/21 13:00 10/07/21 13:49 Orders (Tests/Meds): ED MEDICATIONS Generic Name Dose Route Start Last Admin Trade Name Freq PRN Reason Stop Dose Admin Sodium Chloride 10 ml 10/07/21 13:07 Sodium Chloride 0.9% 10ml Flush Syringe IV 11/06/21 13:06 NEEDED PRN Maintain IV Site Discontinued Medications Generic Name Dose Route Start Last Admin Trade Name Freq PRN Reason Stop Dose Admin Potassium Chloride 40 meq 10/07/21 13:40 10/07/21 14:38 Potassium Chloride 20meq Tab PO 10/07/21 13:41 40 meq ONCE ONE Administration Sodium Chloride 1,000 ml 10/07/21 13:39 10/07/21 14:38 Sodium Chloride 0.9% 1000ml Bag IV 10/07/21 13:40 1,000 ml BOLUS ONE Administration ORDERS Category Date Time Status Troponin I Q3H Lab 10/07/21 16:15 Ordered Troponin I Q3H Lab 10/07/21 19:15 Ordered - Radiology Data #1 Image(s): Chest (Preliminary interpretation by me: Scarring of bases, no acute infiltrate seen) Image Reviewed: Yes I reviewed the patient's radiology image, Yes I have reviewed radiologist's interpretation Procedure(s): XR chest portable Accession Number(s): [id number] cc: Akbar Domínguez MD; Skinny Alford MD~ FINAL REPORT CLINICAL HISTORY: SOA COMPARISON: June 05, 2019 FINDINGS: A single portable view of the chest was obtained. The heart size and pulmonary vascularity are within normal limits. The mediastinum is within normal limits. There is mild bibasilar atelectasis. The bony thorax is in
[2021-10-07 13:19] LABS: Basophils # 0.2 K/mm3 (0-0.2); Basophils % 2.2 % (0.1-2.0); Eosinophils # 0.1 K/mm3 (0.0-0.4); Eosinophils % 1.5 % (0.1-12.0); Hematocrit 51.4 % (42.0-52.0); Hemoglobin 17.1 g/dL (14.1-18.0); Lymphocytes # 1.6 K/mm3 (0.7-4.5); Lymphocytes % 16.8 % (10-50); Mean Corpuscular HGB Conc 33.3 g/dL (31.8-35.4); Mean Corpuscular Hemoglobin 31.1 pg (27.0-31.2); Mean Corpuscular Volume 93.2 fl (80-94); Mean Platelet Volume 8.8 fl (7.4-10.4); Monocytes # 0.6 K/mm3 (0.1-1.0); Neutrophils # 7.1 K/mm3 (1.8-7.8); Neutrophils % 73.5 % (37.0-80.0); Platelet Count 309 K/mm3 (142-424); Red Blood Count 5.52 M/mm3 (4.60-6.20); Red Cell Distribution Width 14.3 % (11.5-17.5); White Blood Count 9.6 K/mm3 (4.8-10.8)
[2021-10-07 13:21] LABS: Alanine Aminotransferase 25 U/L (12-78); Albumin Level 4.5 g/dl (3.5-5.0); Albumin/Globulin Ratio 1.1 (1.1-1.8); Alkaline Phosphatase 167 U/L (38-126); Anion Gap 13.7 mEq/L (5-15); Aspartate Amino Transferase 35 U/L (17-59); Bilirubin,Total 0.7 mg/dl (0.2-1.3); Blood Urea Nitrogen 40 mg/dl (9-20); Calcium 9.2 mg/dl (8.4-10.2); Carbon Dioxide 34 mmol/L (22.0-30.0); Chloride 90 mmol/L (98-107); Creatinine Clearance Estimated 47 mL/min (50-200); Estimated Glomerular Filt Rate 35 ml/min (>60); GFR (African American) 43 ML/MIN (>60); Globulin 4.1 g/dL (1.3-3.2); Glucose 152 mg/dl (74-100); Sodium 135 mmol/L (136-145); Total Protein,Serum 8.6 g/dl (6.3-8.2)
[2021-10-07 13:33] LABS: Troponin I 0.03 ng/ml (0.00-0.034)
[2021-10-07 13:37] LABS: Potassium 2.7 mmoL/L (3.5-5.1)
[2021-10-07 14:32] LABS: Coronavirus 19, PCR Not Detected (NotDetected); Influenza A, PCR Not Detected (NotDetected); Influenza B, PCR Not Detected (NotDetected)
--- NOTE | 2021-10-07 14:49 | PC.NURSE ---
pt given warm blanket
--- NOTE | 2021-10-08 13:35 | ECG_ITS ---
APPROVED REPORT Exam: Resting ECG HR:50 bpm ECG Measurements Heart Rate 50 AXES MA 230 P 67 QRSd 166 QRS -49 QT 499 T 125 QTc 473 Conclusion SINUS BRADYCARDIA WITH FIRST DEGREE AV BLOCK WITH OCCASIONAL SUPRAVENTRICULAR PREMATURE COMPLEXES LEFT AXIS DEVIATION [QRS AXIS < -30] LEFT BUNDLE BRANCH BLOCK [120+ ms QRS DURATION, 80+ ms Q/S IN V1/V2, 85+ ms R IN I/aVL/V5/V6] ABNORMAL ECG UNCONFIRMED REPORT Electronically signed by : Nestor Mejia MD 10/11/2021 14:11:50
== END 2021-10-07 16:29 | disposition home or self-care (01) ==
PROVIDERS: Emergency Provider Emergency Medicine; PCP Family Medicine
DX: J06.9 Acute upper respiratory infection, unspecified (principal); E87.6 Hypokalemia; E86.0 Dehydration; E11.9 Type 2 diabetes mellitus without complications; I10 Essential (primary) hypertension
CPT/HCPCS: 71045; 80053; 84484; 85025; 93005; 96374; 99284; C9803; U0003; U0005

== ENCOUNTER → 2021-12-17 11:15 | Outpatient (CLI) | payer MEDICARE, BC, SELFPAY ==
[2021-12-17 18:57] LABS: Basophils # 0.2 K/mm3 (0-0.2); Basophils % 1.8 % (0.1-2.0); Eosinophils # 0.3 K/mm3 (0.0-0.4); Eosinophils % 3.7 % (0.1-12.0); Hematocrit 42.9 % (42.0-52.0); Hemoglobin 14.3 g/dL (14.1-18.0); Lymphocytes # 1.8 K/mm3 (0.7-4.5); Lymphocytes % 21.1 % (10-50); Mean Corpuscular HGB Conc 33.4 g/dL (31.8-35.4); Mean Corpuscular Hemoglobin 30.6 pg (27.0-31.2); Mean Corpuscular Volume 91.5 fl (80-94); Mean Platelet Volume 9.4 fl (7.4-10.4); Monocytes # 0.6 K/mm3 (0.1-1.0); Monocytes % 6.5 % (1.7-9.3); Neutrophils # 5.7 K/mm3 (1.8-7.8); Neutrophils % 66.9 % (37.0-80.0); Platelet Count 363 K/mm3 (142-424); Red Blood Count 4.69 M/mm3 (4.60-6.20); Red Cell Distribution Width 15.6 % (11.5-17.5); White Blood Count 8.6 K/mm3 (4.8-10.8)
[2021-12-17 19:41] LABS: Alanine Aminotransferase 19 U/L (12-78); Albumin Level 4.1 g/dl (3.5-5.0); Albumin/Globulin Ratio 1.2 (1.1-1.8); Alkaline Phosphatase 184 U/L (38-126); Anion Gap 16.9 mEq/L (5-15); Aspartate Amino Transferase 36 U/L (17-59); Bilirubin,Total 0.2 mg/dl (0.2-1.3); Blood Urea Nitrogen 27 mg/dl (9-20); Carbon Dioxide 27 mmol/L (22.0-30.0); Chloride 95 mmol/L (98-107); Estimated Glomerular Filt Rate 55 ml/min (>60); GFR (African American) 66 ML/MIN (>60); Globulin 3.3 g/dL (1.3-3.2); Glucose 108 mg/dl (74-100); Potassium 3.9 mmoL/L (3.5-5.1); Sodium 135 mmol/L (136-145); Total Protein,Serum 7.4 g/dl (6.3-8.2)
== END ==
PROVIDERS: PCP Family Medicine; Visit Provider Family Medicine
DX: I10 Essential (primary) hypertension (principal); R53.83 Other fatigue; Z20.822 Contact with and (suspected) exposure to COVID-19; R06.02 Shortness of breath; R05.9 Cough, unspecified; E11.9 Type 2 diabetes mellitus without complications; Z79.84 Long term (current) use of oral hypoglycemic drugs
CPT/HCPCS: 80053; 85025; C9803; U0003; U0005

== ENCOUNTER → 2022-03-15 14:54 | Outpatient (CLI) | payer MEDICARE, BC, SELFPAY ==
[2022-03-16 10:14] LABS: Chloride 99 mmol/L (98-107); Sodium 139 mmol/L (136-145)
[2022-03-16 10:15] LABS: Potassium 3.5 mmoL/L (3.5-5.1)
[2022-03-16 10:17] LABS: Alanine Aminotransferase 20 U/L (12-78); Alkaline Phosphatase 186 U/L (38-126); Aspartate Amino Transferase 34 U/L (17-59); Bilirubin,Total 0.4 mg/dl (0.2-1.3); Blood Urea Nitrogen 26 mg/dl (9-20); Estimated Glomerular Filt Rate 60 ml/min (>60); GFR (African American) 72 ML/MIN (>60)
[2022-03-16 10:18] LABS: Albumin Level 4.2 g/dl (3.5-5.0); Albumin/Globulin Ratio 1.4 (1.1-1.8); Anion Gap 9.5 mEq/L (5-15); Calcium 9.2 mg/dl (8.4-10.2); Carbon Dioxide 34 mmol/L (22.0-30.0); Globulin 3.1 g/dL (1.3-3.2); Glucose 109 mg/dl (74-100); Total Protein,Serum 7.3 g/dl (6.3-8.2)
[2022-03-16 10:56] LABS: Prostate Specific Ag Screen 2.9 ng/ml (0.0-4.0)
== END ==
PROVIDERS: PCP Family Medicine; Visit Provider Family Medicine
DX: E11.9 Type 2 diabetes mellitus without complications (principal); F17.200 Nicotine dependence, unspecified, uncomplicated; N40.1 Benign prostatic hyperplasia with lower urinary tract symptoms; R39.11 Hesitancy of micturition; Z79.84 Long term (current) use of oral hypoglycemic drugs; Z12.5 Encounter for screening for malignant neoplasm of prostate
CPT/HCPCS: 80053; G0103

== ENCOUNTER 2022-05-20 17:09 | Inpatient (IN) | payer MEDICARE, BC, SELFPAY ==
[2022-05-20] VITALS (7 sets, daily range): BP systolic 126–174; BP diastolic 55–88; PULSE 66–71; RESP 14–20; TEMP 36.6–37.5; O2SAT 97–100; BMI 24.0; BMI 23.9
--- NOTE | 2022-05-20 17:49 | HMH.EDABDPAI ---
Discharge Plan Disposition Patient Disposition: Admitted As Inpatient Prescriptions Prescriptions: No Action metformin 500 mg tablet extended release 24 hr 500 mg PO DAILY Qty: 90 3RF potassium chloride 20 mEq tablet,ER particles/crystals 20 meq PO BID Qty: 60 5RF doxepin 10 mg capsule 10 mg PO DAILY Qty: 30 3RF atenolol 100 mg tablet 100 mg PO DAILY Qty: 30 4RF verapamil 180 mg tablet extended release 180 mg PO DAILY Qty: 90 0RF allopurinol 300 mg tablet 300 mg PO DAILY Qty: 30 2RF triamterene-hydrochlorothiazid 37.5-25 mg tablet 1 tab PO DAILY Qty: 30 2RF Rx Instructions: 37.5/25MG furosemide 40 mg tablet 40 mg PO DAILY Qty: 30 4RF tamsulosin 0.4 mg capsule See Rx Instructions .ROUTE .COMPLEX Qty: 90 0RF Dose Instruction: Take 1 Capsule by mouth at bedtime nightly for urinary flow. Rx Instructions: Take 1 Capsule by mouth at bedtime nightly for urinary flow. albuterol sulfate 200 PUFFS HFA aerosol inhaler 2 puffs inhalation Q4HP PRN (Reason: SHORTNESS OF AIR) Referrals Follow up/Referrals: Akbar Domínguez MD [Primary Care Provider] - See instructions Clinical Impressions Clinical Impression: Colonic fistula, Acute UTI Instructions Patient Instructions: DI for Acute Abdominal Pain Discharge ED Provider: Rome Lee Abdominal Pain HPI General Chief Complaint: Abdominal Pain Stated Complaint: sent by DR Domínguez, painful urination Time Seen by Provider: 05/20/22 17:50 Mode of Arrival: Ambulatory Source of Information: Patient Limitations: No Limitations Description of Symptoms (Recalled from ER Triage Doc. by RN): PT sent from PCP for urinary Sx and Diverticulitis r/o; c/o dysuria, back pain, N/V x 3-5 days History of Present Illness HPI narrative: Patient is a 72-year-old male presenting with turbid urine and frothy urine and pain in his penis. Does have some suprapubic discomfort as well has a remote history of diverticulitis without any significant abdominal pain today went to his primary care doctor Dr. Domínguez who sent him here for concerns of a possible colovesicular fistula. Patient's pain is mild no fevers no chills no systemic symptoms. Related Data Home Medications Medication Instructions Recorded Confirmed albuterol sulfate 90 mcg/actuation 2 puffs inhalation Q4HP PRN 06/06/19 05/20/22 aerosol inhaler SHORTNESS OF AIR Previous Rx's Medication Instructions Recorded metformin 500 mg tablet,extended 500 mg PO DAILY #90 tabs 11/01/21 release 24 hr potassium chloride 20 mEq 20 meq PO BID #60 tabs 01/05/22 tablet,extended release(part/cryst) doxepin 10 mg capsule 10 mg PO DAILY #30 caps 01/31/22 atenolol 100 mg tablet 100 mg PO DAILY Hypertension #30 02/14/22 tabs verapamil 180 mg tablet,extended 180 mg PO DAILY Hypertension #90 02/21/22 release tabs allopurinol 300 mg tablet 300 mg PO DAILY GOUT #30 tabs 04/06/22 furosemide 40 mg tablet 40 mg PO DAILY #30 tabs 04/07/22 triamterene 37.5 1 tab PO DAILY Hypertension #30 04/07/22 mg-hydrochlorothiazide 25 mg tablet tabs tamsulosin 0.4 mg capsule See Rx Instructions .Route 05/04/22 .COMPLEX #90 caps Allergies Allergy/AdvReac Type Severity Reaction Status Date / Time shellfish derived Allergy Intermediate DIARRHEA/VO Verified 05/20/22 15:04 [From SHELLFISH (FOOD/DRUG)] GENE/QIAN CEE [facility] Disclaimer: The information contained in this section may have been updated after the patient was seen, as this information can be updated by other users. Medical History Benign prostatic hyperplasia with hesitancy Social History Smoking Status: Never smoker alcohol intake: never current occupational status: retired Travel in the last 8 weeks: None household members: none housing: house ROS Obtained: Yes All sys
--- NOTE | 2022-05-20 17:55 | CT_ITS ---
PROCEDURE INFORMATION: Exam: CT Abdomen And Pelvis With Contrast Exam date and time: 05/20/2022 6:33 PM Age: 72 years old Clinical indication: Abdominal pain; Additional info: Frothy urine, h/o diverticulitis, gu/abd pain TECHNIQUE: Imaging protocol: Computed tomography of the abdomen and pelvis with contrast. Radiation optimization: All CT scans at this facility use at least one of these dose optimization techniques: automated exposure control; mA and/or kV adjustment per patient size (includes targeted exams where dose is matched to clinical indication); or iterative reconstruction. Contrast material: ISOVUE; Contrast volume: 75 ml; Contrast route: IV; Other protocol: This patient has received 0 known CTs and 0 known cardiac nuclear medicine studies in the 12 months prior to the current study. COMPARISON: CT ABDOMEN PELVIS WO CON 05/29/2019 4:22 AM FINDINGS: Diaphragm: There is a small fat containing hiatal hernia. Liver: Liver appears mildly fatty but otherwise unremarkable. Gallbladder and bile ducts: Small calcified gallstones are noted in the gallbladder. Pancreas: Normal. No ductal dilation. Spleen: Normal. No splenomegaly. Adrenal glands: There are stable small bilateral low-density adrenal nodules compatible with benign adenomas. These measure 2.4 cm on the right and 1.4 cm on the left. Kidneys and ureters: Normal. No hydronephrosis. Stomach and bowel: There is moderate sigmoid diverticulosis. Bowel loops are normal in caliber. No evidence of bowel obstruction. Appendix: No evidence of appendicitis. Intraperitoneal space: Unremarkable. No free air. No significant fluid collection. Vasculature: Atherosclerotic calcification noted in the aorta and iliac arteries. No evidence of aortic aneurysm or dissection. Lymph nodes: Unremarkable. No enlarged lymph nodes. Urinary bladder: There is eccentric wall thickening of the left side of the dome of the bladder with a 1.6 cm fluid and gas collection within the bladder wall. Soft tissue opacity extending from the bladder wall to the adjacent sigmoid colon suggests colovesical fistula. Reproductive: Partially visualized bilateral hydroceles noted in the scrotum, larger on the right . Prostate gland is mildly enlarged, measuring 5 cm in diameter. Bones/joints: There is moderate levoscoliosis of the lumbar spine with multilevel degenerative disc changes. Soft tissues: Unremarkable. IMPRESSION: Findings suggesting colovesical fistula between the left side of the dome of the bladder and adjacent sigmoid colon. Other chronic appearing changes as noted.
[2022-05-20 18:06] LABS: Basophils # 0.2 K/mm3 (0-0.2); Basophils % 1.2 % (0.1-2.0); Eosinophils % 0.2 % (0.1-12.0); Hematocrit 47.8 % (42.0-52.0); Hemoglobin 16.4 g/dL (14.1-18.0); Lymphocytes # 1.7 K/mm3 (0.7-4.5); Lymphocytes % 11.6 % (10-50); Mean Corpuscular HGB Conc 34.4 g/dL (31.8-35.4); Mean Corpuscular Hemoglobin 29.6 pg (27.0-31.2); Mean Platelet Volume 8.8 fl (7.4-10.4); Monocytes # 0.6 K/mm3 (0.1-1.0); Monocytes % 4.3 % (1.7-9.3); Neutrophils # 12.2 K/mm3 (1.8-7.8); Neutrophils % 82.7 % (37.0-80.0); Platelet Count 362 K/mm3 (142-424); Red Blood Count 5.56 M/mm3 (4.60-6.20); Red Cell Distribution Width 16.2 % (11.5-17.5); White Blood Count 14.8 K/mm3 (4.8-10.8)
[2022-05-20 18:07] LABS: Chloride 95 mmol/L (98-107); Potassium 3.1 mmoL/L (3.5-5.1); Sodium 134 mmol/L (136-145)
[2022-05-20 18:08] LABS: Microscopic, Urine URINE MICROSCOPIC (MICROSCOPIC)
[2022-05-20 18:09] LABS: Alanine Aminotransferase 16 U/L (12-78); Alkaline Phosphatase 220 U/L (38-126); Aspartate Amino Transferase 24 U/L (17-59); Blood Urea Nitrogen 36 mg/dl (9-20); Creatinine Clearance Estimated 51 mL/min (50-200); Estimated Glomerular Filt Rate 46 ml/min (>60); GFR (African American) 56 ML/MIN (>60)
[2022-05-20 18:10] LABS: Albumin Level 4.3 g/dl (3.5-5.0); Anion Gap 10.1 mEq/L (5-15); Calcium 8.7 mg/dl (8.4-10.2); Carbon Dioxide 32 mmol/L (22.0-30.0); Globulin 4.3 g/dL (1.3-3.2); Glucose 119 mg/dl (74-100); Total Protein,Serum 8.6 g/dl (6.3-8.2)
[2022-05-20 18:16] LABS: Appearance,Urine TURBID (Clear); Blood, Urine 3+ (Negative); Color,Urine YELLOW (Yellow); Glucose,Urine (UA) Negative (Negative); Ketones,Urine TRACE (Negative); Leukocyte Esterase,Urine 2+ (Negative); Nitrate,Urine POSITIVE (Negative); Protein,Urine 2+ (Negative); Specific Gravity, Urine 1.025 (1.005-1.030)
[2022-05-20 18:27] LABS: Bilirubin,Urine Negative (Negative)
[2022-05-20 18:30] LABS: Bacteria,Urine 4+ /lpf; RBC,Urine TNTC #/hpf (0-3); Squamous Epithelial Cell,Urine Occasional #/hpf (0-5); WBC,Urine TNTC #/hpf (0-3)
--- NOTE | 2022-05-20 19:25 | PC.NURSE ---
speaking with Dr. Crockett for pt consult
--- NOTE | 2022-05-20 19:30 | PC.NURSE ---
speaking with Dr. Liu for admission
--- NOTE | 2022-05-20 19:51 | PC.NURSE ---
house notified of admission
[2022-05-20 20:08] LABS: Coronavirus 19, PCR Not Detected (NotDetected); Influenza A, PCR Not Detected (NotDetected); Influenza B, PCR Not Detected (NotDetected)
--- NOTE | 2022-05-20 20:09 | PC.NURSE ---
attempted to call report. nurse unavailable and stated she will call back
[2022-05-21 04:00] VITALS: BP 121/64; PULSE 65; RESP 16; TEMP 36.9; O2SAT 95; BMI 23.9
--- NOTE | 2022-05-21 05:42 | PC.NURSE ---
pt is a&ox4. RA. receiving iv fluids. room air. no complaints of pain. voiding in urinal.
[2022-05-21 08:00] VITALS: BP 88/56; PULSE 55; RESP 20; TEMP 36.6; O2SAT 93
[2022-05-21 08:16] LABS: Basophils # 0.1 K/mm3 (0-0.2); Basophils % 1.5 % (0.1-2.0); Eosinophils # 0.1 K/mm3 (0.0-0.4); Eosinophils % 0.6 % (0.1-12.0); Hematocrit 43.8 % (42.0-52.0); Lymphocytes # 1.5 K/mm3 (0.7-4.5); Lymphocytes % 16.1 % (10-50); Mean Corpuscular HGB Conc 32.7 g/dL (31.8-35.4); Mean Corpuscular Volume 88.8 fl (80-94); Mean Platelet Volume 8.4 fl (7.4-10.4); Monocytes # 0.5 K/mm3 (0.1-1.0); Monocytes % 5.3 % (1.7-9.3); Neutrophils # 7.1 K/mm3 (1.8-7.8); Neutrophils % 76.6 % (37.0-80.0); Platelet Count 283 K/mm3 (142-424); Red Blood Count 4.93 M/mm3 (4.60-6.20); Red Cell Distribution Width 16.4 % (11.5-17.5); White Blood Count 9.3 K/mm3 (4.8-10.8)
[2022-05-21 08:18] LABS: Hemoglobin 14.3 g/dL (14.1-18.0)
[2022-05-21 08:22] LABS: Chloride 105 mmol/L (98-107); Sodium 135 mmol/L (136-145)
[2022-05-21 08:24] LABS: Alanine Aminotransferase 12 U/L (12-78); Alkaline Phosphatase 180 U/L (38-126); Aspartate Amino Transferase 23 U/L (17-59); Blood Urea Nitrogen 26 mg/dl (9-20); Creatinine Clearance Estimated 64 mL/min (50-200); Estimated Glomerular Filt Rate 60 ml/min (>60); GFR (African American) 72 ML/MIN (>60)
[2022-05-21 08:25] LABS: Albumin Level 3.5 g/dl (3.5-5.0); Albumin/Globulin Ratio 1.1 (1.1-1.8); Anion Gap 3.1 mEq/L (5-15); Carbon Dioxide 30 mmol/L (22.0-30.0); Globulin 3.3 g/dL (1.3-3.2); Glucose 91 mg/dl (74-100); Total Protein,Serum 6.8 g/dl (6.3-8.2)
[2022-05-21 08:26] LABS: Potassium 3.1 mmoL/L (3.5-5.1)
--- NOTE | 2022-05-21 09:45 | P.CONPHA_ITS ---
Pharmacy Intervention Comments: MEDICATION RECONCILIATION COMPLETED ON PATIENT USING EXTERNAL FILL HISTORY FROM PHARMACY AND LIST FROM [facility]. -MARTHA MITCHELLD
[2022-05-21 12:00] VITALS: BP 92/63; PULSE 56; RESP 20; TEMP 36.7; O2SAT 94
--- NOTE | 2022-05-21 12:28 | EXP.HP ---
History of Present Illness *Admission Date: 05/20/22 *Reason for visit:: Urine abnormal *History of present illness: This 72-year-old white male diabetic presented in the office of the [facility] clinic in [facility]. He was seen by Dr. Domínguez. He gave a history of abnormal urine and abnormal urination with some subtle suprapubic discomfort. He gave the interesting history of possible air being expelled through the penis along with some frothy looking urine. In the office in [place] his urine was quite turbid. He had not been running fever. Bowel movements have been normal. He has a known history of diverticulitis. He has scrotal hydroceles. there was concern from his history that he could have developed a colovesicular fistula. He was sent from the office in [place] to the emergency room at [facility] to be further evaluated and to have a CT scan performed to try to confirm the presence of the colovesicular fistula. Indeed, in the emergency room the CT scan did confirm presence of the fistula. He was admitted for IV antibiotics and surgical consultation. He has received IV piperacillin since admission. His white count has declined from over 14,000 to a normal level. His potassium is low at 3.1. His sugars have not been problematic since admission. He had a normal glycohemoglobin A1c a few months ago. He takes metformin only. He has hypertension and takes furosemide, triamterene hydrochlorothiazide, verapamil 180 mg extended release, and atenolol 100 mg. [facility] Disclaimer: The information contained in this section may have been updated after the patient was seen, as this information can be updated by other users. Medical History Benign prostatic hyperplasia with hesitancy Social History Smoking Status: Never smoker alcohol intake: never current occupational status: retired Travel in the last 8 weeks: None household members: none housing: house Review of Systems Review of Systems Review of systems:: pertinent systems reviewed and negative unless documented below Constitutional Constitutional: Reports fatigue, Denies fever(s) and Reports malaise Eyes Eyes: Reports system reviewed and no additional complaints, except as documented ENT Ears, Nose, Mouth, and Throat: Reports system reviewed and no additional complaints, except as documented *Cardiovascular Cardiovascular: Reports system reviewed and no additional complaints, except as documented, Denies chest pain and Denies dyspnea *Respiratory Respiratory: Reports system reviewed and no additional complaints, except as documented and Denies dyspnea *Gastrointestinal Gastrointestinal: Reports abdominal pain (Mild suprapubic), Denies change in bowel habits, Denies change in stool character, Denies constipation and Denies cramping *Genitourinary Genitourinary: Reports as per HPI, Reports difficulty urinating, Reports hematuria (Some recent), Reports scrotal swelling, Denies testicular pain and Reports other (Turbid urine, passing air through the penis) *Musculoskeletal Musculoskeletal: Reports system reviewed and no additional complaints, except as documented Integumentary/Breasts Skin/Breast: Reports system reviewed and no additional complaints, except as documented *Neurologic Neurologic: Reports system reviewed and no additional complaints, except as documented, Denies confusion and Denies convulsions Psychiatric Psychiatric: Reports system reviewed and no additional complaints, except as documented and Denies confusion Endocrine Endocrine: Reports system reviewed and no additional complaints, except as documented and Reports fatigue Comments: Known diabetic but recently well controlled Hematologic/Lymphatic Hematologic/Lymphatic: Reports system reviewed and no additional complaints, except as documented Allergic/
--- NOTE | 2022-05-21 12:43 | EXP.HP ---
History of Present Illness *Admission Date: 05/20/22 *History of present illness: This 72-year-old white male diabetic presented in the office of the [facility] clinic in [facility]. He was seen by Dr. Domínguez. He gave a history of abnormal urine and abnormal urination with some subtle suprapubic discomfort. He gave the interesting history of possible air being expelled through the penis along with some frothy looking urine. In the office in [place] his urine was quite turbid. He had not been running fever. Bowel movements have been normal. He has a known history of diverticulitis. He has scrotal hydroceles. there was concern from his history that he could have developed a colovesicular fistula. He was sent from the office in [place] to the emergency room at [facility] to be further evaluated and to have a CT scan performed to try to confirm the presence of the colovesicular fistula. Indeed, in the emergency room the CT scan did confirm presence of the fistula. He was admitted for IV antibiotics and surgical consultation. He has received IV piperacillin since admission. His white count has declined from over 14,000 to a normal level. His potassium is low at 3.1. His sugars have not been problematic since admission. He had a normal glycohemoglobin A1c a few months ago. He takes metformin only. He has hypertension and takes furosemide, triamterene hydrochlorothiazide, verapamil 180 mg extended release, and atenolol 100 mg. [facility] Disclaimer: The information contained in this section may have been updated after the patient was seen, as this information can be updated by other users. Medical History Benign prostatic hyperplasia with hesitancy Social History Smoking Status: Never smoker alcohol intake: never current occupational status: retired Travel in the last 8 weeks: None household members: none housing: house Review of Systems *Neurologic Neurologic: Reports system reviewed and no additional complaints, except as documented, Denies confusion and Denies convulsions Psychiatric Psychiatric: Denies confusion Meds Home Medications and Allergies Home Medications Medication Instructions Recorded Confirmed Type allopurinol 300 mg tablet 300 mg PO DAILY GOUT 05/20/22 05/20/22 History atenolol 100 mg tablet 100 mg PO DAILY Hypertension 05/20/22 05/20/22 History potassium chloride 20 mEq 20 meq PO BID Supplement 05/20/22 05/20/22 History tablet,extended release(part/cryst) tamsulosin 0.4 mg capsule 0.4 mg PO HS PROSTATE 05/20/22 05/21/22 History triamterene 37.5 1 tab PO DAILY Hypertension 05/20/22 05/20/22 History mg-hydrochlorothiazide 25 mg tablet doxepin 10 mg capsule 10 mg PO DAILY MOOD 05/21/22 05/21/22 History furosemide 40 mg tablet 40 mg PO DAILY Fluid 05/21/22 05/21/22 History metformin 500 mg tablet,extended 500 mg PO DAILY Diabetes 05/21/22 05/21/22 History release 24 hr verapamil 180 mg tablet,extended 180 mg PO DAILY Hypertension 05/21/22 05/21/22 History release New Prescriptions to Start Prescriptions: Allergies Allergy/AdvReac Type Severity Reaction Status Date / Time shellfish derived Allergy Intermediate DIARRHEA/VO Verified 05/20/22 21:04 [From SHELLFISH (FOOD/DRUG)] MITING/COUG JAYE Exam Data for Last 24 hours Vital signs and Labs for Last 24 Hours: Temp Pulse Resp BP Pulse Ox 98.0 F 56 L 20 92/63 L 94 L 05/21/22 12:00 05/21/22 12:00 05/21/22 12:00 05/21/22 12:00 05/21/22 12:00 Laboratory Results - last 24 hr 05/20/22 17:18: Urine Color Yellow, Urine Appearance Turbid, Urine pH 6.0, Ur Specific [place] 1.025, Urine Protein 2+, Urine Glucose (UA) Negative, Urine Ketones Trace, Urine Blood 3+, Urine Nitrate Positive, Urine Bilirubin Negative, Urine Urobilinogen 1.0, Ur Leukoc
[2022-05-21 13:04] LABS: Hemoglobin A1C 5.7 % (4.0-6.0)
--- NOTE | 2022-05-21 13:07 | PC.NURSE ---
Paged Dr Delacruz regarding pt's general surgery consult. Spoke to MD and passed the phone to pt's nurse DEYANIRA Morales @ this time
[2022-05-21 15:41] VITALS: BP 121/46; PULSE 56; RESP 18; TEMP 36.4; O2SAT 95
[2022-05-21 16:00] VITALS: BP 121/46; PULSE 56; RESP 18; TEMP 36.4; O2SAT 95
--- NOTE | 2022-05-21 17:38 | PC.NURSE ---
escorted pt to bathroom for bowel movement. he asked that i leave the room so he could have privacy. instructed o how to use call light system when finished.
[2022-05-21 20:00] VITALS: BP 139/56; PULSE 56; RESP 18; TEMP 37.1; O2SAT 98
[2022-05-22] VITALS: BP 135/61; PULSE 52; RESP 18; TEMP 37.6; O2SAT 95
[2022-05-22 02:10] LABS: Adenovirus F 40/41, stool Not Detected (NotDetected); Astrovirus Not Detected (NotDetected); Campylobacter Not Detected (NotDetected); Clostridium Difficile A/B, PCR Not Detected (NotDetected); Cryptosporidium Not Detected (NotDetected); Cyclospora Cayetanesis Not Detected (NotDetected); Entamoeba histolytica Not Detected (NotDetected); Enteroaggregative E coli Not Detected (NotDetected); Enterotoxigenic E coli Not Detected (NotDetected); Giardia lamblia Not Detected (NotDetected); Norovirus Not Detected (NotDetected); Plesimonas Shigalloides, PCR Not Detected (NotDetected); Rotavirus A Not Detected (NotDetected); Salmonella, PCR Not Detected (NotDetected); Sapovirus Not Detected (NotDetected); Shiga-like toxin E coli Not Detected (NotDetected); Shigella Enterovasive E coli Not Detected (NotDetected); Vibrio Cholerae Not Detected (NotDetected); Vibrio, PCR Not Detected (NotDetected); Yersinia Entercolitica, PCR Not Detected (NotDetected)
[2022-05-22 03:54] LABS: Enteropathogenic E coli Detected (NotDetected)
[2022-05-22 04:00] VITALS: BP 136/49; PULSE 58; RESP 18; TEMP 36.4; O2SAT 95; BMI 23.6
--- NOTE | 2022-05-22 06:28 | PC.NURSE ---
Pt has not voiced any c/o to staff t/o night. Pt has had multiple liquid bms t/o the night. Stool sample sent to lab, provider notified of results. Pt very eager to start a diet. Call light within reach.
[2022-05-22 07:16] VITALS: BP 145/77; PULSE 53; RESP 18; TEMP 36.5; O2SAT 97
[2022-05-22 09:01] VITALS: BMI 23.6
--- NOTE | 2022-05-22 10:45 | EXP.SURG.CON ---
History of Present Illness *Admission Date: 05/20/22 *History of present illness: This 72-year-old white male diabetic presented in the office of the [facility] in [facility]. He was seen by Dr. Domínguez. He gave a history of abnormal urine and abnormal urination with some subtle suprapubic discomfort. He gave the interesting history of possible air being expelled through the penis along with some frothy looking urine. In the office in [place] his urine was quite turbid. He had not been running fever. Bowel movements have been normal. He has a known history of diverticulitis. He has scrotal hydroceles. there was concern from his history that he could have developed a colovesicular fistula. He was sent from the office in [place] to the emergency room at [facility] to be further evaluated and to have a CT scan performed to try to confirm the presence of the colovesicular fistula. Indeed, in the emergency room the CT scan did confirm presence of the fistula. He was admitted for IV antibiotics and surgical consultation. He has received IV piperacillin since admission. His white count has declined from over 14,000 to a normal level. His potassium is low at 3.1. His sugars have not been problematic since admission. He had a normal glycohemoglobin A1c a few months ago. He takes metformin only. He has hypertension and takes furosemide, triamterene hydrochlorothiazide, verapamil 180 mg extended release, and atenolol 100 mg. 05/22/2022 HPI: Mr. Ck Childers is a 72-year-old male who presented to the emergency room after being sent there by his PCP for an abnormal urinalysis. He notes about a 5-day prodrome of weakness and gait instability, followed by the complaint that had prompted his visit to Dr. Domínguez, which was painful dysuria and frothy urine. He also endorses the feeling of passing flatus when he urinates. He denies recent history of diverticulitis, but notes 2 separate admissions in 2009 for diverticulitis that was treated with antibiotics. He has not had any colon resections. He reports his last colonoscopy is circa 2019 and reports that it was normal. [facility] Disclaimer: The information contained in this section may have been updated after the patient was seen, as this information can be updated by other users. Medical History Benign prostatic hyperplasia with hesitancy Social History Smoking Status: Never smoker alcohol intake: never current occupational status: retired Travel in the last 8 weeks: None household members: none housing: house Review of Systems Review of Systems Review of systems:: pertinent systems reviewed and negative unless documented below Constitutional Constitutional: Denies fever(s) and Reports weakness ENT Ears, Nose, Mouth, and Throat: Reports disequilibrium *Genitourinary Genitourinary: Reports dysuria Comments: Pneumaturia *Neurologic Neurologic: Reports system reviewed and no additional complaints, except as documented, Denies confusion, Denies convulsions, Reports disequilibrium and Reports weakness Psychiatric Psychiatric: Denies confusion Meds Home Medications and Allergies Home Medications Medication Instructions Recorded Confirmed Type allopurinol 300 mg tablet 300 mg PO DAILY GOUT 05/20/22 05/20/22 History atenolol 100 mg tablet 100 mg PO DAILY Hypertension 05/20/22 05/20/22 History potassium chloride 20 mEq 20 meq PO BID Supplement 05/20/22 05/20/22 History tablet,extended release(part/cryst) tamsulosin 0.4 mg capsule 0.4 mg PO HS PROSTATE 05/20/22 05/21/22 History triamterene 37.5 1 tab PO DAILY Hypertension 05/20/22 05/20/22 History mg-hydrochlorothiazide 25 mg tablet doxepin 10 mg capsule 10 mg PO DAILY MOOD 05/21/22 05/21/22 History furosemide 40 mg tablet 40 mg PO DAILY Fluid 05/21/22 05/21/22
--- NOTE | 2022-05-22 11:48 | EXP.ACUTE.PN ---
Subjective *Date: 05/22/22 *Time: 11:48 Interval history: He remains stable. No pain. Bradycardic. I ordered reduced dose of Verapamil yesterday, but will D/C today due to bradycardia. Resume Maxzide 25 today. He has not yet been seen by surgeon. Still NPO. Will order full liquids. Medical Exam Vital signs and Labs for Last 24 Hours: Vital Signs Temp Pulse Resp BP Pulse Ox 05/22/22 07:16 97.7 F 53 L 18 145/77 H 97 05/22/22 04:00 97.5 F L 58 L 18 136/49 L 95 05/22/22 00:00 99.6 F 52 L 18 135/61 95 05/22/22 00:00 99.6 F 52 L 18 135/61 95 05/21/22 20:00 98.8 F 56 L 18 139/56 L 98 05/21/22 16:00 97.6 F 56 L 18 121/46 L 95 05/21/22 15:41 97.6 F 56 L 18 121/46 L 95 05/21/22 12:00 98.0 F 56 L 20 92/63 L 94 L Intake and Output 05/21/22 05/22/22 05/22/22 19:59 03:59 11:59 Intake Total 818 / 2473 1655 / 2473 Output Total 300 / 400 100 / 400 0 / 400 Balance 518 / 2073 -100 / 3 1655 / 2072 Intake: Intake, Oral Amount 0 / 0 Intake, Total IV Amount 1655 / 1655 0.45% NaCl w/20mEq KCL 1,000 ml 1555 / 1555 @ 125 mls/hr IV .Q8H IRASEMA Rx#: [id number] Piperacillin/Tazo 4.5 gm In 0.9 100 / 100 % Sodium Chloride 100 ml @ 200 mls/hr IV Q6H IRASEMA Rx#:[id number] Infusion Intake 818 / 818 0.45% NaCl w/20mEq KCL 1,000 ml 818 / 818 @ 125 mls/hr IV .Q8H IRASEMA Rx#: [id number] Output: Output, Urine Amount 300 / 400 100 / 400 0 / 400 Other: Number of Unmeasured Voids 0 1 2 Number of Bowel Movements 1 1 2 Weight 174 lb 8.992 oz Patient Weight 05/22/22 11:59 Weight 174 lb 8.992 oz Laboratory Results - last 24 hr 05/21/22 07:50: Hemoglobin A1c 5.7 05/22/22 02:03: Stl Aeromonas (PCR) Not detected, Stl C. cayetanensis PCR Not detected, Stool Rotavirus (PCR) Not detected, Stl Adenov F 40/41 PCR Not detected, Stool Astrovirus (PCR) Not detected, Stool Campylobacter PCR Not detected, Stl C.difficile Tox PCR Not detected, Stool Cryptosporidium PCR Not detected, Stl E.coli Shiga Tox PCR Not detected, Stool E coli O157 PCR Not detected, Stl Enterotoxigenic E PCR Not detected, Stool EPEC (PCR) Detected A, Stool EAEC (PCR) Not detected, Stl E. histolytica PCR Not detected, Stool Giardia Lamblia PCR Not detected, Stool Salmonella PCR Not detected, Stool Sapovirus (PCR) Not detected, Stl P. shigelloides PCR Not detected, Stl Shigella/EIEC PCR Not detected, St Y.enterocolitica PCR Not detected, Stool Vibrio (PCR) Not detected, Stl Vibrio cholerae PCR Not detected, Stl Norovirus GI/GII PCR Not detected I & O for Labs for Last 24 Hours: Intake & Output 05/19/22 05/20/22 05/21/22 05/22/22 11:59 11:59 11:59 11:59 Intake Total 250 / 250 2473 / 2473 Output Total 1300 / 1300 400 / 400 Balance -1050 / -1050 2072 / 2073 Weight 177 lb 174 lb 8.992 oz Microbiology Reports for the Last 24 Hours: Microbiology 05/20/22 17:18 Urine,Clean Catch Urine Culture - Final Escherichia coli Head: Present normocephalic ENT: Present normal oropharynx Neck: Present normal inspection Respiratory: Present CTA bilaterally Cardiac: Present Bradycardia (56) GI: Present soft, normal bowel sounds and obturator sign (was present yesterday); Absent distention, tenderness, guarding or rebound Rectal (male): Present deferred Extremities: Absent edema Skin: Present intact and dry Assessment and Plan *Assessment and plan (1) [place]-vesical fistula: Status: Acute Category: Medical Code(s): N32.1 - Vesicointestinal fistula (2) Acute UTI: Status: Acute Category: Medical Code(s): N39.0 - Urinary tract infection, site not specified (3) Tobacco use disorder: Status: Chronic Category: Medical Code(s): F17.200 - Nicotine dependence, unspecified, uncomplicated (4) Type 2 diabetes mellitus: Status: Acute Category: Medical Code(s): E1
--- NOTE | 2022-05-22 11:54 | EXP.SURG.CON ---
History of Present Illness *Admission Date: 05/20/22 *History of present illness: note entered in error. please disregard and review my completed consult note. [facility] Disclaimer: The information contained in this section may have been updated after the patient was seen, as this information can be updated by other users. Medical History Benign prostatic hyperplasia with hesitancy Social History Smoking Status: Never smoker alcohol intake: never current occupational status: retired Travel in the last 8 weeks: None household members: none housing: house Meds Home Medications and Allergies Home Medications Medication Instructions Recorded Confirmed Type allopurinol 300 mg tablet 300 mg PO DAILY GOUT 05/20/22 05/20/22 History atenolol 100 mg tablet 100 mg PO DAILY Hypertension 05/20/22 05/20/22 History potassium chloride 20 mEq 20 meq PO BID Supplement 05/20/22 05/20/22 History tablet,extended release(part/cryst) tamsulosin 0.4 mg capsule 0.4 mg PO HS PROSTATE 05/20/22 05/21/22 History triamterene 37.5 1 tab PO DAILY Hypertension 05/20/22 05/20/22 History mg-hydrochlorothiazide 25 mg tablet doxepin 10 mg capsule 10 mg PO DAILY MOOD 05/21/22 05/21/22 History furosemide 40 mg tablet 40 mg PO DAILY Fluid 05/21/22 05/21/22 History metformin 500 mg tablet,extended 500 mg PO DAILY Diabetes 05/21/22 05/21/22 History release 24 hr verapamil 180 mg tablet,extended 180 mg PO DAILY Hypertension 05/21/22 05/21/22 History release New Prescriptions to Start Prescriptions: Allergies Allergy/AdvReac Type Severity Reaction Status Date / Time shellfish derived Allergy Intermediate DIARRHEA/VO Verified 05/20/22 21:04 [From SHELLFISH (FOOD/DRUG)] MITING/COUG JAYE Exam (Inpt) Vital signs and Labs for Last 24 Hours: Temp Pulse Resp BP Pulse Ox 97.7 F 53 L 18 145/77 H 97 05/22/22 07:16 05/22/22 07:16 05/22/22 07:16 05/22/22 07:16 05/22/22 07:16 Laboratory Results - last 24 hr 05/21/22 07:50: Hemoglobin A1c 5.7 05/22/22 02:03: Stl Aeromonas (PCR) Not detected, Stl C. cayetanensis PCR Not detected, Stool Rotavirus (PCR) Not detected, Stl Adenov F 40/41 PCR Not detected, Stool Astrovirus (PCR) Not detected, Stool Campylobacter PCR Not detected, Stl C.difficile Tox PCR Not detected, Stool Cryptosporidium PCR Not detected, Stl E.coli Shiga Tox PCR Not detected, Stool E coli O157 PCR Not detected, Stl Enterotoxigenic E PCR Not detected, Stool EPEC (PCR) Detected A, Stool EAEC (PCR) Not detected, Stl E. histolytica PCR Not detected, Stool Giardia Lamblia PCR Not detected, Stool Salmonella PCR Not detected, Stool Sapovirus (PCR) Not detected, Stl P. shigelloides PCR Not detected, Stl Shigella/EIEC PCR Not detected, St Y.enterocolitica PCR Not detected, Stool Vibrio (PCR) Not detected, Stl Vibrio cholerae PCR Not detected, Stl Norovirus GI/GII PCR Not detected I & O for Labs for Last 24 Hours: Intake & Output 05/19/22 05/20/22 05/21/22 05/22/22 23:59 23:59 23:59 23:59 Intake Total 1068 / 1068 1655 / 1655 Output Total 0 / 300 1700 / 1700 0 / 0 Balance 0 / -50 -632 / -632 1655 / 1655 Weight 177 lb 177 lb 174 lb 8.992 oz Microbiology Reports for the Last 24 Hours: Microbiology 05/20/22 17:18 Urine,Clean Catch Urine Culture - Final Escherichia coli Results Labs Result diagrams: 05/22/22 12:09 05/21/22 07:50 Labs: Laboratory Results - last 24 hr 05/21/22 07:50: Hemoglobin A1c 5.7 05/22/22 02:03: Stl Aeromonas (PCR) Not detected, Stl C. cayetanensis PCR Not detected, Stool Rotavirus (PCR) Not detected, Stl Adenov F 40/41 PCR Not detected, Stool Astrovirus (PCR) Not detected, Stool Campylobacter PCR Not detected, Stl C.difficile Tox PCR Not detected, Stool Cryptosporidium PCR Not detected, Stl E.coli Katherine
[2022-05-22 12:21] LABS: Basophils # 0.1 K/mm3 (0-0.2); Basophils % 1.4 % (0.1-2.0); Eosinophils # 0.1 K/mm3 (0.0-0.4); Eosinophils % 1.6 % (0.1-12.0); Hematocrit 41.6 % (42.0-52.0); Hemoglobin 13.9 g/dL (14.1-18.0); Lymphocytes # 1.2 K/mm3 (0.7-4.5); Lymphocytes % 15.6 % (10-50); Mean Corpuscular HGB Conc 33.3 g/dL (31.8-35.4); Mean Corpuscular Hemoglobin 29.2 pg (27.0-31.2); Mean Corpuscular Volume 87.7 fl (80-94); Mean Platelet Volume 8.7 fl (7.4-10.4); Monocytes # 0.4 K/mm3 (0.1-1.0); Monocytes % 5.3 % (1.7-9.3); Platelet Count 276 K/mm3 (142-424); Red Blood Count 4.74 M/mm3 (4.60-6.20); Red Cell Distribution Width 16.2 % (11.5-17.5); White Blood Count 7.9 K/mm3 (4.8-10.8)
[2022-05-22 12:36] LABS: Alanine Aminotransferase 16 U/L (12-78); Albumin Level 3.2 g/dl (3.5-5.0); Alkaline Phosphatase 164 U/L (38-126); Aspartate Amino Transferase 28 U/L (17-59); Bilirubin,Total 0.6 mg/dl (0.2-1.3); Blood Urea Nitrogen 18 mg/dl (9-20); Calcium 7.6 mg/dl (8.4-10.2); Carbon Dioxide 25 mmol/L (22.0-30.0); Chloride 106 mmol/L (98-107); Creatinine Clearance Estimated 76 mL/min (50-200); Estimated Glomerular Filt Rate 74 ml/min (>60); GFR (African American) 89 ML/MIN (>60); Globulin 3.2 g/dL (1.3-3.2); Glucose 122 mg/dl (74-100); Sodium 134 mmol/L (136-145); Total Protein,Serum 6.4 g/dl (6.3-8.2)
[2022-05-22 15:02] VITALS: BP 140/70; PULSE 58; RESP 17; TEMP 36.5; O2SAT 95
[2022-05-22 16:00] VITALS: BP 140/70; PULSE 58; RESP 17; TEMP 36.5; O2SAT 95
--- NOTE | 2022-05-22 18:35 | PC.NURSE ---
MULTIPLE LOOSE BMS THIS SHIFT. BEDSIDE COMMODE IN ROOM. POTASSIUM WAS REPLACED THIS SHIFT R/T CRITICAL LEVEL WHICH WAS REPORTED TO DR SOTO LADLE FILLER FOR DR SÁNCHEZ. PT RECEIVED ONE RUN OF IV POTASSIUM AND TOLERATED WELL. MAINTENANCE FLUIDS WERE ALSO CHANGED TO D5 1/2 NS W/ 40 MEQ K. PT TOLERATED FLD WELL THIS SHIFT.
[2022-05-22 19:58] VITALS: BP 156/78; PULSE 54; RESP 18; TEMP 36.4; O2SAT 96
[2022-05-23 04:00] VITALS: BP 139/83; PULSE 58; RESP 18; TEMP 36.4; O2SAT 97; BMI 23.8
[2022-05-23 06:45] LABS: Chloride 111 mmol/L (98-107)
[2022-05-23 06:46] LABS: Potassium 3.4 mmoL/L (3.5-5.1); Sodium 137 mmol/L (136-145)
[2022-05-23 06:48] LABS: Blood Urea Nitrogen 9 mg/dl (9-20); Creatinine Clearance Estimated 77 mL/min (50-200); Estimated Glomerular Filt Rate 74 ml/min (>60); GFR (African American) 89 ML/MIN (>60)
[2022-05-23 06:49] LABS: Anion Gap 7.4 mEq/L (5-15); Calcium 7.9 mg/dl (8.4-10.2); Carbon Dioxide 22 mmol/L (22.0-30.0); Glucose 100 mg/dl (74-100)
[2022-05-23 06:53] LABS: Basophils # 0.1 K/mm3 (0-0.2); Basophils % 0.9 % (0.1-2.0); Eosinophils # 0.2 K/mm3 (0.0-0.4); Eosinophils % 2.5 % (0.1-12.0); Hematocrit 43.7 % (42.0-52.0); Hemoglobin 14.5 g/dL (14.1-18.0); Lymphocytes # 1.3 K/mm3 (0.7-4.5); Mean Corpuscular HGB Conc 33.1 g/dL (31.8-35.4); Mean Corpuscular Hemoglobin 28.9 pg (27.0-31.2); Mean Corpuscular Volume 87.4 fl (80-94); Mean Platelet Volume 8.4 fl (7.4-10.4); Monocytes # 0.5 K/mm3 (0.1-1.0); Monocytes % 5.7 % (1.7-9.3); Neutrophils # 6.4 K/mm3 (1.8-7.8); Neutrophils % 75.8 % (37.0-80.0); Platelet Count 301 K/mm3 (142-424); Red Cell Distribution Width 16.2 % (11.5-17.5); White Blood Count 8.4 K/mm3 (4.8-10.8)
[2022-05-23 07:29] VITALS: BP 148/74; PULSE 68; RESP 18; TEMP 36.4; O2SAT 98
--- NOTE | 2022-05-23 07:39 | EXP.SURG.PN ---
Subjective Narrative: Patient admitted with suspicion for colovesical fistula based on symptomatology. He has a history previously of diverticulitis greater than a decade ago. He has had some painful urination and frothy urine for up to 2 weeks. Imaging confirms colovesical fistula. Exam Data for Last 24 hours Vital signs and Labs for Last 24 Hours: Temp Pulse Resp BP Pulse Ox 97.5 F L 68 18 148/74 H 98 05/23/22 07:29 05/23/22 07:29 05/23/22 07:29 05/23/22 07:29 05/23/22 07:29 Laboratory Results - last 24 hr 05/22/22 12:09: WBC 7.9, RBC 4.74, Hgb 13.9 L, Hct 41.6 L, MCV 87.7, MCH 29.2, MCHC 33.3, RDW 16.2, Plt Count 276, MPV 8.7, Neut % (Auto) 76.0, Lymph % (Auto) 15.6, [place] % (Auto) 5.3, Eos % (Auto) 1.6, Baso % (Auto) 1.4, Neut # (Auto) 6.0, Lymph # (Auto) 1.2, [place] # (Auto) 0.4, Eos # (Auto) 0.1, Baso # (Auto) 0.1 05/22/22 12:09: Sodium 134 L, Potassium 3.0 L, Chloride 106, Carbon Dioxide 25, Anion Gap 6.0, BUN 18 D, Creatinine 1.00, Estimated Creat Clear 76, Estimated GFR 74, Est GFR ( Amer) 89 D, Glucose 122 H, Calcium 7.6 L, Total Bilirubin 0.6, AST 28, ALT 16 D, Alkaline Phosphatase 164 H, Total Protein 6.4, Albumin 3.2 L, Globulin 3.2, Albumin/Globulin Ratio 1.0 L 05/23/22 05:49: WBC 8.4, RBC 5.00, Hgb 14.5, Hct 43.7, MCV 87.4, MCH 28.9, MCHC 33.1, RDW 16.2, Plt Count 301, MPV 8.4, Neut % (Auto) 75.8, Lymph % (Auto) 15.0, [place] % (Auto) 5.7, Eos % (Auto) 2.5, Baso % (Auto) 0.9, Neut # (Auto) 6.4, Lymph # (Auto) 1.3, [place] # (Auto) 0.5, Eos # (Auto) 0.2, Baso # (Auto) 0.1 05/23/22 05:49: Sodium 137, Potassium 3.4 L, Chloride 111 H, Carbon Dioxide 22, Anion Gap 7.4, BUN 9 D, Creatinine 1.00, Estimated Creat Clear 77, Estimated GFR 74, Est GFR ( Amer) 89, Glucose 100, Calcium 7.9 L I & O for Last 24 hours: Intake & Output 05/20/22 05/21/22 05/22/22 05/23/22 11:59 11:59 11:59 11:59 Intake Total 250 / 250 2473 / 2473 2968 / 2968 Output Total 1300 / 1300 400 / 400 0 / 0 Balance -1050 / -1050 2073 / 2073 2968 / 2968 Weight 177 lb 174 lb 8.992 oz 176 lb 1.6 oz *Routine Abdominal Exam Comments: Some suprapubic tenderness Progress Note: A&P Assessment and plan (1) [place]-vesical fistula: Status: Acute Assessment and plan: Patient will need evaluation at facility that has colorectal surgical availability and urology. (2) Acute UTI: Status: Acute
--- NOTE | 2022-05-23 07:53 | EXP.PN ---
Subjective *Date: 05/23/22 *Time: 07:53 Interval history: Patient states he slept about 2 hours. Otherwise he was up to the bedside commode about every 15 minutes. Voiding is painful. He has had diarrhea. He tolerated clear liquids yesterday. He denies chest pain and shortness of breath. He ambulates without difficulty. Exam Data for Last 24 hours Vital signs and Labs for Last 24 Hours: Temp Pulse Resp BP Pulse Ox 97.5 F L 68 18 148/74 H 98 05/23/22 07:29 05/23/22 07:29 05/23/22 07:29 05/23/22 07:29 05/23/22 07:29 Laboratory Results - last 24 hr 05/22/22 12:09: WBC 7.9, RBC 4.74, Hgb 13.9 L, Hct 41.6 L, MCV 87.7, MCH 29.2, MCHC 33.3, RDW 16.2, Plt Count 276, MPV 8.7, Neut % (Auto) 76.0, Lymph % (Auto) 15.6, [place] % (Auto) 5.3, Eos % (Auto) 1.6, Baso % (Auto) 1.4, Neut # (Auto) 6.0, Lymph # (Auto) 1.2, [place] # (Auto) 0.4, Eos # (Auto) 0.1, Baso # (Auto) 0.1 05/22/22 12:09: Sodium 134 L, Potassium 3.0 L, Chloride 106, Carbon Dioxide 25, Anion Gap 6.0, BUN 18 D, Creatinine 1.00, Estimated Creat Clear 76, Estimated GFR 74, Est GFR ( Amer) 89 D, Glucose 122 H, Calcium 7.6 L, Total Bilirubin 0.6, AST 28, ALT 16 D, Alkaline Phosphatase 164 H, Total Protein 6.4, Albumin 3.2 L, Globulin 3.2, Albumin/Globulin Ratio 1.0 L 05/23/22 05:49: WBC 8.4, RBC 5.00, Hgb 14.5, Hct 43.7, MCV 87.4, MCH 28.9, MCHC 33.1, RDW 16.2, Plt Count 301, MPV 8.4, Neut % (Auto) 75.8, Lymph % (Auto) 15.0, [place] % (Auto) 5.7, Eos % (Auto) 2.5, Baso % (Auto) 0.9, Neut # (Auto) 6.4, Lymph # (Auto) 1.3, [place] # (Auto) 0.5, Eos # (Auto) 0.2, Baso # (Auto) 0.1 05/23/22 05:49: Sodium 137, Potassium 3.4 L, Chloride 111 H, Carbon Dioxide 22, Anion Gap 7.4, BUN 9 D, Creatinine 1.00, Estimated Creat Clear 77, Estimated GFR 74, Est GFR ( Amer) 89, Glucose 100, Calcium 7.9 L I & O for Last 24 hours: Intake & Output 05/20/22 05/21/22 05/22/22 05/23/22 11:59 11:59 11:59 11:59 Intake Total 250 / 250 2473 / 2473 2968 / 2968 Output Total 1300 / 1300 400 / 400 0 / 0 Balance -1050 / -1050 2073 / 2073 2968 / 2968 Weight 177 lb 174 lb 8.992 oz 176 lb 1.6 oz Constitutional Constitutional: no acute distress *Routine Respiratory Exam Respiratory: Present CTA bilaterally (Anteriorly and posteriorly) *Routine Cardiovascular Exam Cardiovascular: Present RRR *Routine Abdominal Exam Abdominal: Present soft, normoactive bowel sounds and tenderness (Mild); Absent rebound or guarding *Routine Extremities Exam Extremities: Absent edema or calf tenderness *Routine Neurological Exam Neurological: Present alert and oriented X3 Assessment and Plan *Assessment and plan (1) [place]-vesical fistula: Status: Acute Category: Medical Code(s): N32.1 - Vesicointestinal fistula (2) Acute UTI: Status: Acute Category: Medical Code(s): N39.0 - Urinary tract infection, site not specified (3) Tobacco use disorder: Status: Chronic Category: Medical Code(s): F17.200 - Nicotine dependence, unspecified, uncomplicated (4) Type 2 diabetes mellitus: Status: Acute Category: Medical Code(s): E11.9 - Type 2 diabetes mellitus without complications (5) Hypokalemia: Status: Acute Category: Medical Code(s): E87.6 - Hypokalemia (6) E. coli UTI: Status: Acute Category: Medical Code(s): N39.0 - Urinary tract infection, site not specified; B96.20 - Unspecified Escherichia coli [E. coli] as the cause of diseases classified elsewhere Plan Patient has been seen by surgeon, Dr. Padgett, as per documentation he feels he needs colorectal surgeon as well as urology for his colovesical fistula. CBC is normal today. Potassium is slightly decreased and will continue with p.o. potassium. Patient also has potassium in his maintenance IVF. E. coli UTI pansensitive
[2022-05-23 15:12] VITALS: BP 143/62; PULSE 74; RESP 18; TEMP 36.4; O2SAT 97
--- NOTE | 2022-05-23 17:46 | PC.NURSE ---
Patient having loose diarrhea during shift, imodium given. Patient states he feels better after medication. VS stable, lung sounds clear. Abdomen tender to touch but not severely painful. No other changes noted.
[2022-05-23 20:00] VITALS: BP 132/60; PULSE 57; RESP 18; TEMP 36.4; O2SAT 95
[2022-05-24 04:00] VITALS: BP 141/61; PULSE 59; RESP 16; TEMP 36.6; O2SAT 97; BMI 24.0
--- NOTE | 2022-05-24 06:31 | PC.NURSE ---
Pt was administered Loperadmide 2mg 2x due to multiple loose stools t/o night. No other c/o voiced to staff. Call light within reach.
[2022-05-24 07:54] VITALS: BP 148/51; PULSE 54; RESP 19; TEMP 36.4; O2SAT 96
--- NOTE | 2022-05-24 08:09 | EXP.PN ---
Subjective *Date: 05/24/22 *Time: 08:09 Interval history: Patient had an unpleasant evening. He was up to the bedside commode about every 15 minutes and slept about an hour and a half throughout the night. He describes small amount of stool with some soft formed stool. He is voiding. He is taking clear to full liquids. He denies any abdominal pain. He has a periodic cough but denies shortness of breath. He denies chest pain. He does have some thigh cramping from getting up and down to the bedside commode. Exam Data for Last 24 hours Vital signs and Labs for Last 24 Hours: Temp Pulse Resp BP Pulse Ox 97.6 F 54 L 19 148/51 H 96 05/24/22 07:54 05/24/22 07:54 05/24/22 07:54 05/24/22 07:54 05/24/22 07:54 I & O for Last 24 hours: Intake & Output 05/21/22 05/22/22 05/23/22 05/24/22 11:59 11:59 11:59 11:59 Intake Total 250 / 250 2473 / 2473 2968 / 2968 2628 / 2628 Output Total 1300 / 1300 400 / 400 0 / 0 300 / 300 Balance -1050 / -1050 2073 / 2073 2968 / 2968 2328 / 2328 Weight 177 lb 174 lb 8.992 oz 176 lb 1.6 oz 177 lb 2 oz Constitutional Constitutional: no acute distress *Routine Respiratory Exam Respiratory: Present rhonchi (Few noted on the right) *Routine Cardiovascular Exam Cardiovascular: Present RRR *Routine Abdominal Exam Abdominal: Present soft and normoactive bowel sounds; Absent tenderness or distended *Routine Extremities Exam Extremities: Present pulses intact; Absent edema or calf tenderness *Routine Neurological Exam Neurological: Present alert and oriented X3 Assessment and Plan *Assessment and plan (1) [place]-vesical fistula: Status: Acute Category: Medical Code(s): N32.1 - Vesicointestinal fistula (2) Acute UTI: Status: Acute Category: Medical Code(s): N39.0 - Urinary tract infection, site not specified (3) Tobacco use disorder: Status: Chronic Category: Medical Code(s): F17.200 - Nicotine dependence, unspecified, uncomplicated (4) Type 2 diabetes mellitus: Status: Acute Category: Medical Code(s): E11.9 - Type 2 diabetes mellitus without complications (5) Hypokalemia: Status: Acute Category: Medical Code(s): E87.6 - Hypokalemia (6) E. coli UTI: Status: Acute Category: Medical Code(s): N39.0 - Urinary tract infection, site not specified; B96.20 - Unspecified Escherichia coli [E. coli] as the cause of diseases classified elsewhere Plan Continue with IV fluids and antibiotics until referral to colorectal surgeon.
--- NOTE | 2022-05-24 09:16 | HMH.PHAINT1 ---
Pharmacy Intervention Comments: Discussed discharge medications with patient. Patient verbalized understanding and had no questions at this time
--- NOTE | 2022-05-25 10:37 | CARE MANAGER ---
Called and spoke with Mr. Childers regarding post discharge status. He states that he is feeling some better, has started new medication, and is aware of scheduled f/u appointments.
--- NOTE | 2022-05-29 16:29 | EXP.DC.SUM ---
General Admission date:: 05/20/22 Discharge date: 05/24/22 HPI HPI HPI: This 72-year-old white male diabetic presented in the office of the [facility] in [facility].? He was seen by Dr. Domínguez.? He gave a history of abnormal urine and abnormal urination with some subtle suprapubic discomfort.? He gave the interesting history of possible air being expelled through the penis along with some frothy looking urine.? In the office in [place] his urine was quite turbid.? He had not been running fever.? Bowel movements have been normal.? He has a known history of diverticulitis.? He has scrotal hydroceles. there was concern from his history that he could have developed a colovesicular fistula.? He was sent from the office in [place] to the emergency room at [facility] to be further evaluated and to have a CT scan performed to try to confirm the presence of the colovesicular fistula.? Indeed, in the emergency room the CT scan did confirm presence of the fistula.? He was admitted for IV antibiotics and surgical consultation. He has received IV piperacillin since admission.? His white count has declined from over 14,000 to a normal level.? His potassium is low at 3.1.? His sugars have not been problematic since admission.? He had a normal glycohemoglobin A1c a few months ago.? He takes metformin only. He has hypertension and takes furosemide, triamterene hydrochlorothiazide, verapamil 180 mg extended release, and atenolol 100 mg. Hospital Course Hospital Course Hospital Course: The patient was admitted and his IV fluids were increased. He was continued on piperacillin and a surgical consult was pending. There was evidence of a colovesicular fistula on CT with a large amount of air in the bladder. The surgeon felt he would likely need confirmation and characterization of the fistula with a barium enema CT and a colonoscopy. Differential for the pneumaturia included diverticular disease versus malignancy causing a colovesicular fistula and severe urinary tract infection. His verapamil dose was decreased due to bradycardia and he was resumed on his Maxide. His stool came back positive for EPEC. Dr. Padgett saw the patient and felt he would need evaluation at a facility that had a colorectal surgeon available as well as a urologist. Voiding was painful and he continued to have diarrhea. He did tolerate an increase in his diet and was able to ambulate without difficulty. Dr. Domínguez spoke with Ginger Colbert, a colorectal surgeon in [place]. She felt the patient could be discharged on oral antibiotics and a follow-up would be scheduled with her in her office. He was discharged on metronidazole and Levaquin. Dr. Domínguez will follow up with him in the [facility]. Exam Data for Last 24 hours Vital signs and Labs for Last 24 Hours: Temp Pulse Resp BP Pulse Ox 97.6 F 54 L 19 148/51 H 96 05/24/22 07:54 05/24/22 07:54 05/24/22 07:54 05/24/22 07:54 05/24/22 07:54 Narrative: Constitutional Constitutional: mild distress *Routine HEENT Exam Head: Present normocephalic Eye: Present EOMI and PERRL ENT: Present mucous membranes dry *Routine Neck Exam Neck: Present supple, full ROM and normal carotid upstroke Routine Chest/Breast/Axilla Exam Chest wall: Absent tenderness Axillae: Absent lymphadenopathy *Routine Respiratory Exam Respiratory: Present CTA bilaterally *Routine Cardiovascular Exam Cardiovascular: Present RRR and S4; Absent ectopic *Routine Abdominal Exam Abdominal: Present soft and tenderness (Mild left-sided and suprapubic tenderness) *Routine Rectal Exam Rectal:: deferred *Routine Genitalia Exam Genitalia:: other Comment:: Bilateral hydroceles.? Penis and meatus appear normal.? No discharge. *Routine Extremities Exam Extremities: Present full ROM; Absent cyanosis, clubbing or edema Routine Back/Spine/Pelvis Exam Back/Spine: Present full ROM *Routine Skin Exam S
== END 2022-05-24 14:03 | disposition home or self-care (01) | DRG 699 ==
LOC: ER 19:32 → 2ND 20:31
PROVIDERS: Emergency Medicine; Admitting Provider Family Medicine; Emergency Provider Student in an Organized Health Care Education/Training Program; PCP Family Medicine; Visit Provider Family Medicine
DX: N32.1 Vesicointestinal fistula (principal); N39.0 Urinary tract infection, site not specified; N40.1 Benign prostatic hyperplasia with lower urinary tract symptoms; R39.11 Hesitancy of micturition; I10 Essential (primary) hypertension; E11.9 Type 2 diabetes mellitus without complications; E87.6 Hypokalemia; Z79.899 Other long term (current) drug therapy; Z79.84 Long term (current) use of oral hypoglycemic drugs; F17.210 Nicotine dependence, cigarettes, uncomplicated; B96.20 Unspecified Escherichia coli [E. coli] as the cause of diseases classified elsewhere
CPT/HCPCS: 36415; 74177; 80048; 80053; 81001; 83036; 85025; 87086; 87088; 87186; 87506; 99285; C9803; J2543; Q9967; U0003; U0005

== ENCOUNTER → 2022-05-20 23:28 | Outpatient (CLI) | payer MEDICARE, BC, SELFPAY | PROVIDERS: PCP Family Medicine; Visit Provider Family Medicine | DX: N39.0 Urinary tract infection, site not specified (principal); B96.29 Other Escherichia coli [E. coli] as the cause of diseases classified elsewhere | CPT/HCPCS: 87086; 87088; 87186 ==

== ENCOUNTER → 2022-05-27 09:12 | Outpatient (CLI) | payer MEDICARE, BC, SELFPAY ==
[2022-05-27 18:24] LABS: Basophils # 0.2 K/mm3 (0-0.2); Basophils % 1.8 % (0.1-2.0); Eosinophils # 0.2 K/mm3 (0.0-0.4); Eosinophils % 2.7 % (0.1-12.0); Hematocrit 46.1 % (42.0-52.0); Hemoglobin 15.6 g/dL (14.1-18.0); Lymphocytes # 1.4 K/mm3 (0.7-4.5); Lymphocytes % 15.6 % (10-50); Mean Corpuscular HGB Conc 33.9 g/dL (31.8-35.4); Mean Corpuscular Hemoglobin 29.7 pg (27.0-31.2); Mean Corpuscular Volume 87.5 fl (80-94); Mean Platelet Volume 8.7 fl (7.4-10.4); Monocytes # 0.4 K/mm3 (0.1-1.0); Monocytes % 4.1 % (1.7-9.3); Neutrophils # 6.8 K/mm3 (1.8-7.8); Neutrophils % 75.9 % (37.0-80.0); Platelet Count 366 K/mm3 (142-424); Red Blood Count 5.26 M/mm3 (4.60-6.20); Red Cell Distribution Width 16.4 % (11.5-17.5); White Blood Count 8.9 K/mm3 (4.8-10.8)
[2022-05-27 18:32] LABS: Alanine Aminotransferase 13 U/L (12-78); Albumin Level 3.8 g/dl (3.5-5.0); Albumin/Globulin Ratio 1.2 (1.1-1.8); Alkaline Phosphatase 145 U/L (38-126); Anion Gap 6.4 mEq/L (5-15); Aspartate Amino Transferase 33 U/L (17-59); Bilirubin,Total 0.5 mg/dl (0.2-1.3); Blood Urea Nitrogen 12 mg/dl (9-20); Calcium 8.7 mg/dl (8.4-10.2); Carbon Dioxide 28 mmol/L (22.0-30.0); Chloride 107 mmol/L (98-107); Estimated Glomerular Filt Rate 46 ml/min (>60); GFR (African American) 56 ML/MIN (>60); Globulin 3.2 g/dL (1.3-3.2); Glucose 80 mg/dl (74-100); Potassium 4.4 mmoL/L (3.5-5.1); Sodium 137 mmol/L (136-145)
== END ==
PROVIDERS: PCP Family Medicine; Visit Provider Family Medicine
DX: N32.1 Vesicointestinal fistula (principal); R41.0 Disorientation, unspecified
CPT/HCPCS: 80053; 85025

== ENCOUNTER → 2022-06-03 23:46 | Outpatient (CLI) | payer MEDICARE, BC, SELFPAY ==
[2022-06-03 18:36] LABS: Basophils # 0.2 K/mm3 (0-0.2); Basophils % 1.1 % (0.1-2.0); Eosinophils # 0.2 K/mm3 (0.0-0.4); Eosinophils % 1.3 % (0.1-12.0); Hematocrit 48.4 % (42.0-52.0); Lymphocytes # 1.4 K/mm3 (0.7-4.5); Lymphocytes % 10.2 % (10-50); Mean Corpuscular HGB Conc 33.1 g/dL (31.8-35.4); Mean Corpuscular Volume 87.8 fl (80-94); Mean Platelet Volume 9.6 fl (7.4-10.4); Monocytes # 0.7 K/mm3 (0.1-1.0); Monocytes % 5.2 % (1.7-9.3); Neutrophils # 11.1 K/mm3 (1.8-7.8); Neutrophils % 82.1 % (37.0-80.0); Platelet Count 356 K/mm3 (142-424); Red Blood Count 5.51 M/mm3 (4.60-6.20); Red Cell Distribution Width 16.6 % (11.5-17.5); White Blood Count 13.5 K/mm3 (4.8-10.8)
[2022-06-03 18:49] LABS: Anion Gap 13.2 mEq/L (5-15); Blood Urea Nitrogen 35 mg/dl (9-20); Calcium 9.1 mg/dl (8.4-10.2); Carbon Dioxide 27 mmol/L (22.0-30.0); Chloride 94 mmol/L (98-107); Estimated Glomerular Filt Rate 31 ml/min (>60); GFR (African American) 38 ML/MIN (>60); Glucose 108 mg/dl (74-100); Potassium 3.2 mmoL/L (3.5-5.1); Sodium 131 mmol/L (136-145)
== END ==
PROVIDERS: PCP Family Medicine; Visit Provider Family Medicine
DX: F17.200 Nicotine dependence, unspecified, uncomplicated (principal); E11.9 Type 2 diabetes mellitus without complications; Z79.84 Long term (current) use of oral hypoglycemic drugs
CPT/HCPCS: 80048; 85025

== ENCOUNTER 2022-06-04 05:17 | Observation (INO) | payer MEDICARE, BC, SELFPAY ==
[2022-06-04] VITALS (14 sets, daily range): BP systolic 61–125; BP diastolic 37–71; PULSE 58–65; RESP 15–20; TEMP 36.3–36.7; O2SAT 94–98; BMI 24.0; BMI 22.8
--- NOTE | 2022-06-04 05:26 | CT_ITS ---
PROCEDURE INFORMATION: Exam: CT Abdomen And Pelvis Without Contrast Exam date and time: 06/04/2022 6:21 AM Age: 72 years old Clinical indication: Abdominal pain; Generalized; Additional info: Abd pain-- previous scan in may for same cause-symptoms have not resolved TECHNIQUE: Imaging protocol: Computed tomography of the abdomen and pelvis without contrast. Radiation optimization: All CT scans at this facility use at least one of these dose optimization techniques: automated exposure control; mA and/or kV adjustment per patient size (includes targeted exams where dose is matched to clinical indication); or iterative reconstruction. REPORTING DATA: Count of CT and Cardiac NM exams in prior 12 months: This patient has received [address] and 0 known cardiac nuclear medicine studies in the 12 months prior to the current study. COMPARISON: CT ABDOMEN PELVIS W CON 05/20/2022 6:33 PM FINDINGS: Liver: Normal. No mass. Gallbladder and bile ducts: Multiple dependent gallstones. Pancreas: Normal. No ductal dilation. Spleen: Normal. No splenomegaly. Adrenal glands: Normal. No mass. Kidneys and ureters: Normal. No hydronephrosis. Stomach and bowel: See Urinary bladder finding. Appendix: No evidence of appendicitis. Intraperitoneal space: Unremarkable. No free air. No significant fluid collection. Vasculature: Unremarkable. No abdominal aortic aneurysm. Lymph nodes: Unremarkable. No enlarged lymph nodes. Urinary bladder: Air is again seen within the bladder. Degree of bladder wall thickening and inflammation is diminished. There is focal thickening of the bladder dome adjacent to a loop of thickened sigmoid colon which may represent a colovesical fistula. See series 1001, image 34 Reproductive: Unremarkable as visualized. Bones/joints: Unremarkable. No acute fracture. Soft tissues: Unremarkable. IMPRESSION: 1. Air within the bladder and diminishing bladder wall thickening but signs of possible/probable colovesical fistula as previously described. 2. Cholelithiasis.
--- NOTE | 2022-06-04 05:38 | ECG_ITS ---
APPROVED REPORT Exam: Resting ECG HR:60 bpm ECG Measurements Heart Rate 60 AXES ME 211 P -3 QRSd 161 QRS 61 QT 482 T 52 QTc 483 Conclusion SINUS RHYTHM WITH FIRST DEGREE AV BLOCK LEFT BUNDLE BRANCH BLOCK [120+ ms QRS DURATION, 80+ ms Q/S IN V1/V2, 85+ ms R IN I/aVL/V5/V6] ABNORMAL ECG UNCONFIRMED REPORT Electronically signed by : Nestor Mejia MD 06/06/2022 21:03:57
[2022-06-04 05:47] LABS: Microscopic, Urine URINE MICROSCOPIC (MICROSCOPIC)
[2022-06-04 05:53] LABS: Appearance,Urine SL CLOUDY (Clear); Basophils # 0.2 K/mm3 (0-0.2); Basophils % 1.2 % (0.1-2.0); Blood, Urine TRACE-I (Negative); Color,Urine DK YELLOW (Yellow); Eosinophils # 0.2 K/mm3 (0.0-0.4); Eosinophils % 1.8 % (0.1-12.0); Glucose,Urine (UA) Negative (Negative); Hematocrit 48.3 % (42.0-52.0); Hemoglobin 16.3 g/dL (14.1-18.0); Ketones,Urine TRACE (Negative); Leukocyte Esterase,Urine 2+ (Negative); Lymphocytes # 1.8 K/mm3 (0.7-4.5); Mean Corpuscular HGB Conc 33.7 g/dL (31.8-35.4); Mean Corpuscular Hemoglobin 29.7 pg (27.0-31.2); Mean Platelet Volume 9.1 fl (7.4-10.4); Monocytes # 0.8 K/mm3 (0.1-1.0); Monocytes % 6.3 % (1.7-9.3); Neutrophils # 9.9 K/mm3 (1.8-7.8); Neutrophils % 76.7 % (37.0-80.0); Nitrate,Urine Negative (Negative); PH,Urine 5.5 (5.0-8.5); Platelet Count 314 K/mm3 (142-424); Protein,Urine TRACE (Negative); Red Blood Count 5.49 M/mm3 (4.60-6.20); Red Cell Distribution Width 16.6 % (11.5-17.5); Specific Gravity, Urine >= 1.030 (1.005-1.030); Urobilinogen,Urine 0.2 EU/dl (0.2); White Blood Count 12.9 K/mm3 (4.8-10.8)
[2022-06-04 06:00] LABS: Bilirubin,Urine 1+ (Negative)
[2022-06-04 06:01] LABS: Amylase 51 U/L (30-110); Lactic Acid 1.3 mmol/L (0.7-2.1); Lipase 84 U/L (23-300)
[2022-06-04 06:04] LABS: Alanine Aminotransferase 16 U/L (12-78); Albumin Level 4.6 g/dl (3.5-5.0); Albumin/Globulin Ratio 1.2 (1.1-1.8); Alkaline Phosphatase 108 U/L (38-126); Amylase 47 U/L (30-110); Anion Gap 14.1 mEq/L (5-15); Aspartate Amino Transferase 28 U/L (17-59); Bilirubin,Total 0.7 mg/dl (0.2-1.3); Blood Urea Nitrogen 41 mg/dl (9-20); Calcium 9.2 mg/dl (8.4-10.2); Carbon Dioxide 28 mmol/L (22.0-30.0); Chloride 91 mmol/L (98-107); Creatinine Clearance Estimated 32 mL/min (50-200); Estimated Glomerular Filt Rate 27 ml/min (>60); GFR (African American) 32 ML/MIN (>60); Globulin 3.9 g/dL (1.3-3.2); Glucose 100 mg/dl (74-100); Potassium 3.1 mmoL/L (3.5-5.1); Sodium 130 mmol/L (136-145); Total Protein,Serum 8.5 g/dl (6.3-8.2)
[2022-06-04 06:10] LABS: Bacteria,Urine 2+ /lpf; RBC,Urine Occasional #/hpf (0-3); Squamous Epithelial Cell,Urine Occasional #/hpf (0-5); WBC,Urine TNTC #/hpf (0-3); Yeast,Urine 1+ /lpf
--- NOTE | 2022-06-04 06:16 | PC.NURSE ---
patiient gone to CT at this time.
--- NOTE | 2022-06-04 06:44 | HMH.EDABDPAI ---
Discharge Plan Disposition Patient Disposition: Admitted As Inpatient Chief Complaint: Abdominal Pain Clinical Impressions Clinical Impression: Left bundle branch block, Diabetes mellitus, Hypokalemia, [place]-vesical fistula, Acute UTI, Severe sepsis with acute organ dysfunction Discharge ED Provider: [place] (ED),Angel Fishman Abdominal Pain HPI General Chief Complaint: Abdominal Pain Stated Complaint: infection/possible uti Time Seen by Provider: 06/04/22 06:00 Mode of Arrival: EMS Source of Information: Patient, EMS and Medical Record Limitations: No Limitations Description of Symptoms (Recalled from ER Triage Doc. 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 and will be eval as outpt by surg at [facility] - pt was seen yesterday and has reported abd pain and weakness and presented to ed - MD complaint: abdominal pain Onset (ago): day(s) Location: suprapubic Severity: moderate Associated symptoms: other (weakness) Related Data Home Medications Medication Instructions Recorded Confirmed allopurinol 300 mg tablet 300 mg PO DAILY GOUT 05/20/22 06/04/22 atenolol 100 mg tablet 100 mg PO DAILY Hypertension 05/20/22 06/04/22 potassium chloride 20 mEq 20 meq PO DAILY Supplement 05/20/22 06/04/22 tablet,extended release(part/cryst) tamsulosin 0.4 mg capsule 0.4 mg PO HS PROSTATE 05/20/22 06/04/22 triamterene 37.5 1 tab PO DAILY Hypertension 05/20/22 06/04/22 mg-hydrochlorothiazide 25 mg tablet doxepin 10 mg capsule 10 mg PO DAILY MOOD 05/21/22 06/04/22 metformin 500 mg tablet,extended 500 mg PO DAILY Diabetes 05/21/22 06/04/22 release 24 hr levofloxacin 750 mg tablet See Rx Instructions .Route 06/04/22 06/04/22 .COMPLEX Infection metronidazole 500 mg tablet See Rx Instructions .Route 06/04/22 06/04/22 .COMPLEX Infection Allergies Allergy/AdvReac Type Severity Reaction Status Date / Time shellfish derived Allergy Intermediate DIARRHEA/VO Verified 06/03/22 11:34 [From SHELLFISH (FOOD/DRUG)] MITING/QIAN CEE [facility] Disclaimer: The information contained in this section may have been updated after the patient was seen, as this information can be updated by other users. Medical History Benign prostatic hyperplasia with hesitancy Social History Smoking Status: Current every day smoker tobacco type: cigarettes packs per day: 2 alcohol intake: never current occupational status: retired Travel in the last 8 weeks: None household members: none housing: house ROS Obtained: Yes All systems reviewed & no additional complaints except as documented Physical Exam General General appearance: alert Head Head exam: normocephalic Eye Eye exam: Present PERRL and EOMI ENT ENT exam: Present mucous membranes dry Neck Neck exam: Present trachea midline Respiratory Respiratory exam: Present normal lung sounds bilaterally; Absent respiratory distress Cardiovascular Cardiovascular exam: Present regular rate and systolic murmur Abdominal Exam Abdominal exam: Present soft and tenderness; Absent guarding or rebound Abdominal tenderness: Present suprapubic and moderate Extremities Exam Extremities exam: Present full ROM Neurological Exam Neurological exam: Present alert, oriented X3 and CN II-XII intact; Absent motor sensory deficit Psychiatric Psychiatric exam: Present normal affect Skin Skin exam: Absent rash Medical Decision Making Medical Records Medical records reviewed: Yes I reviewed the patient's medical records. Alcides Inquiry Pt receiving controlled substance: No Vital Signs: 06/04/22 05:17 06/04/22 05:46 06/04/22 05:41 Tem[place]atu
--- NOTE | 2022-06-04 06:55 | PC.NURSE ---
Called [facility], they will call back pending on wait list.
[2022-06-04 06:56] LABS: Troponin I < 0.01 ng/ml (0.00-0.034)
[2022-06-04 07:10] LABS: Coronavirus 19, PCR Not Detected (NotDetected); Influenza A, PCR Not Detected (NotDetected); Influenza B, PCR Not Detected (NotDetected)
[2022-06-04 07:35] LABS: Procalcitonin 0.112 ng/mL (0.0-2.0)
[2022-06-04 07:36] LABS: Erythrocyte Sedimentation Rate 45 mm/hr (0-20)
--- NOTE | 2022-06-04 07:37 | PC.NURSE ---
Called house for bed assignment
--- NOTE | 2022-06-04 07:50 | PC.NURSE ---
PER DR CAN, PT IS TO RECEIVE FLAGYL 500MG Q 8 HOURS IV AND LEVAQUIN 500MG Q 12 HOURS IV. ORDER READ BACK AND VERIFIED. ORDERS PLACED PER HIS REQUEST.
[2022-06-04 07:56] LABS: C-Reactive Protein 5.5 mg/L (0-4)
--- NOTE | 2022-06-04 07:56 | PC.NURSE ---
DR CAN SPEAKING WITH HOSPITALIST AT [facility] AT THIS TIME. NO BEDS AVAILABLE AT THIS TIME. PT IS ON WAITING LIST.
--- NOTE | 2022-06-04 08:20 | PC.NURSE ---
PER DR CAN, 20 POTASSIUM PO ONCE. READ BACK AND VERIFIED AND ORDER PLACED.
--- NOTE | 2022-06-04 08:40 | PC.NURSE ---
CALLED REPORT TO CRISTHIAN MCMILLAN.
--- NOTE | 2022-06-04 08:52 | PC.NURSE ---
arrived to floor from ED by w/c
--- NOTE | 2022-06-04 10:38 | EXP.HP ---
History of Present Illness *Admission Date: 06/04/22 *Reason for visit:: Colovesicular fistula, hypokalemia *History of present illness: 72-year-old white male was recently diagnosed with colovesicular fistula. He has been maintained outpatient on p.o. antibiotics (Levaquin and metronidazole )after his hospitalization in May. He is scheduled to see Dr. Ginger Rodriguez, June 27 but presented in the emergency room feeling quite poorly. He had been seen earlier in the office in [place]. He has not been febrile. He has had nausea but no vomiting. He is diabetic. His potassium on admission is 3.1 and his white blood cell count is 12,900. [facility] Disclaimer: The information contained in this section may have been updated after the patient was seen, as this information can be updated by other users. Medical History (Updated 06/04/22 @ 09:53 by Alesia Richardson RN) Anal fistula Benign prostatic hyperplasia with hesitancy Hypertension Family History (Updated 06/04/22 @ 09:52 by Alesia Richardson RN) Family history of cancer Social History (Updated 06/04/22 @ 09:54 by Alesia Richardson RN) Smoking Status: Current every day smoker tobacco type: cigarettes packs per day: 2 alcohol intake: never current occupational status: retired Travel in the last 8 weeks: None household members: none housing: house Review of Systems Constitutional Constitutional: Reports anorexia, Denies chills, Denies frequent falls, Reports poor appetite, Reports lethargy and Reports malaise Eyes Eyes: Reports system reviewed and no additional complaints, except as documented ENT Ears, Nose, Mouth, and Throat: Reports system reviewed and no additional complaints, except as documented, Denies abnormal hearing, Reports disequilibrium, Denies dysphagia and Denies mouth lesions *Cardiovascular Cardiovascular: Reports system reviewed and no additional complaints, except as documented, Denies chest pain, Denies chest pain at rest and Denies dyspnea *Respiratory Respiratory: Denies chest congestion, Denies cough and Denies dyspnea *Gastrointestinal Gastrointestinal: Reports abdominal pain, Reports change in bowel habits (Bowels have been somewhat loose on antibiotics.) and Denies dysphagia *Genitourinary Genitourinary: Reports system reviewed and no additional complaints, except as documented, Denies dysuria and Reports other (Urine appears more cloudy than normal.) *Musculoskeletal Musculoskeletal: Reports system reviewed and no additional complaints, except as documented Integumentary/Breasts Skin/Breast: Reports system reviewed and no additional complaints, except as documented and Reports dry skin *Neurologic Neurologic: Denies abnormal hearing, Denies abnormal speech, Denies convulsions, Reports disequilibrium and Denies frequent falls Psychiatric Psychiatric: Reports anxiety Endocrine Endocrine: Reports system reviewed and no additional complaints, except as documented Hematologic/Lymphatic Hematologic/Lymphatic: Reports as per HPI (Bandemia) Allergic/Immunologic Allergic/Immunologic: Reports system reviewed and no additional complaints, except as documented Meds Home Medications and Allergies Home Medications Medication Instructions Recorded Confirmed Type allopurinol 300 mg tablet 300 mg PO DAILY GOUT 05/20/22 06/04/22 History atenolol 100 mg tablet 100 mg PO DAILY Hypertension 05/20/22 06/04/22 History potassium chloride 20 mEq 20 meq PO DAILY Supplement 05/20/22 06/04/22 History tablet,extended release(part/cryst) tamsulosin 0.4 mg capsule 0.4 mg PO HS PROSTATE 05/20/22 06/04/22 History triamterene 37.5 1 tab PO DAILY Hypertension 05/20/22 06/04/22 History mg-hydrochlorothiazide 25 mg tablet doxepin 10 mg capsule 10 mg PO DAILY MOOD 05/21/22 06/04/22 History metformin 500 mg tablet,extended 500 mg PO DAILY Diabetes 05/21/22 06/04/22 History release 24 hr levofloxacin 750 mg tablet See Rx Instructions .Route 06/04/22 06/04/22 History
[2022-06-04 11:52] LABS: POC Glucose,Bedside 83 (70-110)
[2022-06-04 12:06] LABS: Troponin I < 0.01 ng/ml (0.00-0.034)
[2022-06-04 16:43] LABS: POC Glucose,Bedside 85 (70-110)
--- NOTE | 2022-06-04 16:44 | PC.NURSE ---
PT IS RESTING IN BED. ALERT AND ORIENTED X4. LUNG SOUNDS CLEAR. ABDOMEN SOFT WITH TENDERNESS ON PALPATION. ACTIVE BOWEL SOUNDS. PT NEEDS ASSISTANCE TO GET OOB. VERY WEAK. VSS. WILL CONTINUE TO MONITOR.
--- NOTE | 2022-06-04 18:32 | PC.NURSE ---
[facility] called still no bed available. will call backup engineer to morning
[2022-06-04 20:44] LABS: POC Glucose,Bedside 80 (70-110)
[2022-06-05 04:00] VITALS: BP 110/47; PULSE 60; RESP 16; TEMP 36.6; O2SAT 96; BMI 23.1
--- NOTE | 2022-06-05 04:17 | PC.NURSE ---
pt. aox3 and needs help to the BSC being that he is weak. He is awaiting transfer to [facility] [place].
[2022-06-05 05:28] LABS: POC Glucose,Bedside 72 (70-110)
[2022-06-05 07:58] VITALS: BP 104/45; PULSE 64; RESP 18; TEMP 36.7; O2SAT 95
[2022-06-05 08:08] LABS: Basophils # 0.1 K/mm3 (0-0.2); Basophils % 1.1 % (0.1-2.0); Eosinophils # 0.3 K/mm3 (0.0-0.4); Hematocrit 41.6 % (42.0-52.0); Hemoglobin 13.8 g/dL (14.1-18.0); Lymphocytes # 1.2 K/mm3 (0.7-4.5); Lymphocytes % 13.3 % (10-50); Mean Corpuscular HGB Conc 33.3 g/dL (31.8-35.4); Mean Corpuscular Hemoglobin 29.4 pg (27.0-31.2); Mean Corpuscular Volume 88.3 fl (80-94); Mean Platelet Volume 8.9 fl (7.4-10.4); Monocytes # 0.5 K/mm3 (0.1-1.0); Monocytes % 5.3 % (1.7-9.3); Neutrophils # 6.6 K/mm3 (1.8-7.8); Neutrophils % 76.4 % (37.0-80.0); Platelet Count 233 K/mm3 (142-424); Red Blood Count 4.71 M/mm3 (4.60-6.20); Red Cell Distribution Width 16.5 % (11.5-17.5); White Blood Count 8.7 K/mm3 (4.8-10.8)
[2022-06-05 08:23] LABS: Alanine Aminotransferase 9 U/L (12-78); Albumin Level 3.3 g/dl (3.5-5.0); Albumin/Globulin Ratio 1.1 (1.1-1.8); Alkaline Phosphatase 82 U/L (38-126); Anion Gap 10.1 mEq/L (5-15); Aspartate Amino Transferase 27 U/L (17-59); Bilirubin,Total 0.6 mg/dl (0.2-1.3); Blood Urea Nitrogen 25 mg/dl (9-20); Calcium 7.7 mg/dl (8.4-10.2); Carbon Dioxide 21 mmol/L (22.0-30.0); Chloride 104 mmol/L (98-107); Creatinine Clearance Estimated 62 mL/min (50-200); Estimated Glomerular Filt Rate 60 ml/min (>60); GFR (African American) 72 ML/MIN (>60); Globulin 2.9 g/dL (1.3-3.2); Glucose 67 mg/dl (74-100); Potassium 3.1 mmoL/L (3.5-5.1); Sodium 132 mmol/L (136-145); Total Protein,Serum 6.2 g/dl (6.3-8.2)
--- NOTE | 2022-06-05 10:42 | EXP.ACUTE.PN ---
Subjective *Date: 06/05/22 *Time: 10:42 Interval history: Feeling better, but not great. He has not been out of bed. Afebrile, WBC normalized. Potassium still 3.1. Medical Exam Vital signs and Labs for Last 24 Hours: Vital Signs Temp Pulse Resp BP Pulse Ox 06/05/22 07:58 98.0 F 64 18 104/45 L 95 06/05/22 04:00 97.8 F 60 16 110/47 L 96 06/04/22 20:00 98.0 F 60 16 108/56 L 95 06/04/22 20:00 95 06/04/22 16:00 97.6 F 63 20 109/42 L 94 L 06/04/22 12:00 97.4 F L 58 L 18 114/63 94 L Intake and Output 06/04/22 06/05/22 06/05/22 19:59 03:59 11:59 Intake Total 1799 / 3139 1100 / 3139 240 / 3139 Output Total 0 / 400 0 / 400 400 / 400 Balance 1799 / 2739 1100 / 2739 -160 / 2739 Intake: Intake, Oral Amount 120 / 360 240 / 360 Intake, Total IV Amount 1679 / 2779 1100 / 2779 0.9 % Sodium Chloride 1,000 ml 1679 / 2679 1000 / 2679 @ 125 mls/hr IV .Q8H IRASEMA Rx#: [id number] Metronidaz/Sod Chl 500 mg In 100 / 100 100 ml @ 100 mls/hr IV Q8H IRASEMA Rx#:[id number] Output: Output, Urine Amount 0 / 400 0 / 400 400 / 400 Other: Number of Unmeasured Voids 1 2 1 Number of Bowel Movements 1 1 Weight 170 lb 8 oz Patient Weight 06/05/22 11:59 Weight 170 lb 8 oz Laboratory Results - last 24 hr 06/04/22 11:33: POC Glucose 83 06/04/22 11:34: Troponin I < 0.01 06/04/22 16:30: POC Glucose 85 06/04/22 20:37: POC Glucose 80 06/05/22 05:21: POC Glucose 72 06/05/22 07:31: Sodium 132 L, Potassium 3.1 L, Chloride 104, Carbon Dioxide 21 L, Anion Gap 10.1, BUN 25 H D, Creatinine 1.20 D, Estimated Creat Clear 62, Estimated GFR 60, Est GFR ( Amer) 72 D, Glucose 67 L, Calcium 7.7 L, Total Bilirubin 0.6, AST 27, ALT 9 L D, Alkaline Phosphatase 82, Total Protein 6.2 L D, Albumin 3.3 L D, Globulin 2.9, Albumin/Globulin Ratio 1.1 06/05/22 07:31: WBC 8.7 D, RBC 4.71, Hgb 13.8 L, Hct 41.6 L, MCV 88.3, MCH 29.4, MCHC 33.3, RDW 16.5, Plt Count 233 D, MPV 8.9, Neut % (Auto) 76.4, Lymph % (Auto) 13.3, [place] % (Auto) 5.3, Eos % (Auto) 4.0, Baso % (Auto) 1.1, Neut # (Auto) 6.6, Lymph # (Auto) 1.2, [place] # (Auto) 0.5, Eos # (Auto) 0.3, Baso # (Auto) 0.1 I & O for Labs for Last 24 Hours: Intake & Output 06/02/22 06/03/22 06/04/22 06/05/22 11:59 11:59 11:59 11:59 Intake Total 3139 / 3139 Output Total 400 / 400 Balance 2739 / 2739 Weight 168 lb 1 oz 170 lb 8 oz Microbiology Reports for the Last 24 Hours: Microbiology 06/04/22 05:38 Urine,Clean Catch Urine Culture - Preliminary NO GROWTH AFTER 24 HOURS Head: Present normocephalic ENT: Present normal exam Neck: Present normal inspection Respiratory: Present CTA bilaterally Cardiac: Present Reg Rate and Rhythm GI: Present soft, tenderness (minimal) and normal bowel sounds; Absent distention Rectal (male): Present deferred (male): Present deferred Extremities: Present edema (minimal) Skin: Present intact Neuro: Present Cranial Nerve 2-12 Intact, alert, awake and oriented x 3 Assessment and Plan *Assessment and plan (1) [place]-vesical fistula: Status: Acute Category: Medical Code(s): N32.1 - Vesicointestinal fistula (2) Type 2 diabetes mellitus: Status: Acute Category: Medical Code(s): E11.9 - Type 2 diabetes mellitus without complications (3) Hypokalemia: Status: Acute Category: Medical Code(s): E87.6 - Hypokalemia (4) Hypertension: Status: Chronic Category: Medical Code(s): I10 - Essential (primary) hypertension (5) Tobacco use disorder: Status: Chronic Category: Medical Code(s): F17.200 - Nicotine dependence, unspecified, uncomplicated (6) UTI (urinary tract infection): Status: Acute Qualifiers: Hematuria presence: without hematuria Urinary tract infection type: site unspecified Qualified Code(s): N39.0 - Urinary tract infection
[2022-06-05 11:09] LABS: POC Glucose,Bedside 87 (70-110)
[2022-06-05 15:15] VITALS: BP 122/53; PULSE 59; RESP 17; TEMP 36.6; O2SAT 96
[2022-06-05 17:47] LABS: POC Glucose,Bedside 88 (70-110)
--- NOTE | 2022-06-05 18:14 | PC.NURSE ---
emily called from [facility] still no bed available will keep him onwaiting list
--- NOTE | 2022-06-05 18:33 | PC.NURSE ---
PT IS RESTING IN BED. ALERT AND ORIENTED X4. EATING AND DRINKING WELL. LUNG SOUNDS CLEAR. ABDOMEN SOFT/NON TENDER WITH ACTIVE BOWEL SOUNDS. AMBULATES TO THE BATHROOM. QUAKER CALLED THIS EVENING AND STATED THEY STILL DO NOT HAVE A BED AVAILABLE. WILL CONTINUE TO MONITOR.
[2022-06-05 20:00] VITALS: BP 122/60; PULSE 62; RESP 16; TEMP 36.8; O2SAT 96
[2022-06-05 20:54] LABS: POC Glucose,Bedside 93 (70-110)
[2022-06-06 04:00] VITALS: BP 122/64; PULSE 67; RESP 16; TEMP 36.5; O2SAT 98; BMI 23.1
--- NOTE | 2022-06-06 04:57 | PC.NURSE ---
Addendum entered by Chaz Farris RN 06/06/22 05:30: colovesical fistula. Original Note: Pt. is aox 4 and get up to the restroom on his own. His abdomen has been soft but tender. He is awaiting a bed at [facility] to see a surgeon for his colorectal fistula. Reports some stool in his urine yesterday.
[2022-06-06 05:29] LABS: POC Glucose,Bedside 76 (70-110)
--- NOTE | 2022-06-06 06:35 | PC.NURSE ---
CB called for update, no bed at this time.
[2022-06-06 07:41] VITALS: BP 109/54; PULSE 60; RESP 17; TEMP 36.3; O2SAT 96
--- NOTE | 2022-06-06 08:27 | EXP.PN ---
Subjective *Date: 06/06/22 *Time: 08:27 Interval history: Patient stated he did sleep some last night and thus feels better today. He is able to eat some solid food. He continues with periodic nausea but has not vomited. He has had no diarrhea. He is somewhat dizzy at times. His abdomen has been tender. He feels he is voiding QS. Exam Data for Last 24 hours Vital signs and Labs for Last 24 Hours: Temp Pulse Resp BP Pulse Ox 97.4 F L 60 17 109/54 L 96 06/06/22 07:41 06/06/22 07:41 06/06/22 07:41 06/06/22 07:41 06/06/22 07:41 Laboratory Results - last 24 hr 06/05/22 07:31: Sodium 132 L, Potassium 3.1 L, Chloride 104, Carbon Dioxide 21 L, Anion Gap 10.1, BUN 25 H D, Creatinine 1.20 D, Estimated Creat Clear 62, Estimated GFR 60, Est GFR ( Amer) 72 D, Glucose 67 L, Calcium 7.7 L, Total Bilirubin 0.6, AST 27, ALT 9 L D, Alkaline Phosphatase 82, Total Protein 6.2 L D, Albumin 3.3 L D, Globulin 2.9, Albumin/Globulin Ratio 1.1 06/05/22 11:03: POC Glucose 87 06/05/22 17:40: POC Glucose 88 06/05/22 20:46: POC Glucose 93 06/06/22 05:22: POC Glucose 76 I & O for Last 24 hours: Intake & Output 06/03/22 06/04/22 06/05/22 06/06/22 11:59 11:59 11:59 11:59 Intake Total 3139 / 3139 2908 / 2908 Output Total 400 / 400 0 / 0 Balance 2739 / 2739 2908 / 2908 Weight 168 lb 1 oz 170 lb 8 oz 170 lb 6.4 oz Microbiology Reports for the Last 24 Hours: Microbiology 06/04/22 05:38 Blood Blood Culture - Preliminary NO GROWTH AFTER 48 HOURS 06/04/22 05:38 Urine,Clean Catch Urine Culture - Final NO GROWTH AFTER 48 HOURS 06/04/22 05:38 Blood Blood Culture - Preliminary NO GROWTH AFTER 48 HOURS Constitutional Constitutional: no acute distress *Routine Respiratory Exam Respiratory: Present wheezes (Periodically posteriorly) *Routine Cardiovascular Exam Cardiovascular: Present RRR *Routine Abdominal Exam Abdominal: Present tenderness and guarding; Absent distended *Routine Extremities Exam Extremities: Absent edema or calf tenderness *Routine Neurological Exam Neurological: Present alert and oriented X3 Assessment and Plan *Assessment and plan (1) [place]-vesical fistula: Status: Acute Category: Medical Code(s): N32.1 - Vesicointestinal fistula (2) Type 2 diabetes mellitus: Status: Acute Category: Medical Code(s): E11.9 - Type 2 diabetes mellitus without complications (3) Hypokalemia: Status: Acute Category: Medical Code(s): E87.6 - Hypokalemia (4) Hypertension: Status: Chronic Category: Medical Code(s): I10 - Essential (primary) hypertension (5) Tobacco use disorder: Status: Chronic Category: Medical Code(s): F17.200 - Nicotine dependence, unspecified, uncomplicated (6) UTI (urinary tract infection): Status: Acute Qualifiers: Hematuria presence: without hematuria Urinary tract infection type: site unspecified Qualified Code(s): N39.0 - Urinary tract infection, site not specified Category: Medical Code(s): N39.0 - Urinary tract infection, site not specified Plan Continue IV antibiotics and IV with potassium. Pursuing transfer for [place]-rectal evaluation. To note patient should have been an observation from admission.
[2022-06-06 11:20] LABS: POC Glucose,Bedside 100 (70-110)
--- NOTE | 2022-06-06 13:31 | XR_ITS ---
FINAL REPORT CLINICAL HISTORY: Confirm PICC line placement COMPARISON: 10/07/2021 FINDINGS: A single view of the chest was obtained. A new left PICC line is seen with the tip in the upper SVC. The heart is normal in size. The mediastinum is unremarkable. There is mild atelectasis or scarring in the right lung base. There is no pleural effusion. There is no pneumothorax. There is no acute osseous abnormality. IMPRESSION: New left PICC line tip in the upper SVC. Mild atelectasis or scarring in the right lung base. Reviewed, Interpreted and Dictated by Skinny Alford III, MD Transcribed by Tracy Rodriguez Authenticated and [facility]
[2022-06-06 15:38] VITALS: BP 109/62; PULSE 55; RESP 18; TEMP 36.8; O2SAT 97
[2022-06-06 16:46] LABS: POC Glucose,Bedside 89 (70-110)
--- NOTE | 2022-06-06 17:10 | PC.NURSE ---
Tried to call and reschedule an appointment with Dr. Sayra RENE at but there was no answer after calling them back. Will try again tomorrow. Patient can not do the date of his current appointment and prefers afternoon times.
--- NOTE | 2022-06-06 18:58 | PC.NURSE ---
No acute changes noted. PICC line obtained, able to use. Patient stated he could not attend Monday [address] Domínguez notified and changes attempted to be made. Apt could not be changed, will address tomorrow. VS stable, patient on room air. Utilized bedside commode.
[2022-06-06 20:00] VITALS: BP 133/60; PULSE 76; RESP 20; TEMP 37.1; O2SAT 97
[2022-06-06 20:20] LABS: POC Glucose,Bedside 99 (70-110)
[2022-06-07 04:00] VITALS: BP 135/63; PULSE 87; RESP 18; TEMP 36.6; O2SAT 96; BMI 51.7
--- NOTE | 2022-06-07 05:10 | PC.NURSE ---
Pt. is still waiting to get a bed at [facility] to see a Colorectal surgeon for his colovesical fistula.
[2022-06-07 05:41] LABS: POC Glucose,Bedside 80 (70-110)
[2022-06-07 06:58] LABS: MANUAL DIFFERENTIAL MANUAL DIFFERENTIAL (MANUAL DIFF)
[2022-06-07 07:04] LABS: Basophils # 0.1 K/mm3 (0-0.2); Basophils % 1.3 % (0.1-2.0); Eosinophils # 0.2 K/mm3 (0.0-0.4); Eosinophils % 3.3 % (0.1-12.0); Hematocrit 39.2 % (42.0-52.0); Hemoglobin 12.7 g/dL (14.1-18.0); Lymphocytes % 13.9 % (10-50); Mean Corpuscular HGB Conc 32.4 g/dL (31.8-35.4); Mean Corpuscular Hemoglobin 28.9 pg (27.0-31.2); Mean Corpuscular Volume 89.2 fl (80-94); Monocytes # 0.5 K/mm3 (0.1-1.0); Monocytes % 6.8 % (1.7-9.3); Neutrophils # 5.4 K/mm3 (1.8-7.8); Neutrophils % 74.8 % (37.0-80.0); Platelet Count 188 K/mm3 (142-424); Red Blood Count 4.39 M/mm3 (4.60-6.20); Red Cell Distribution Width 16.5 % (11.5-17.5); White Blood Count 7.3 K/mm3 (4.8-10.8)
[2022-06-07 07:23] LABS: Chloride 109 mmol/L (98-107); Sodium 136 mmol/L (136-145)
[2022-06-07 07:26] LABS: Alanine Aminotransferase 9 U/L (12-78); Albumin/Globulin Ratio 1.1 (1.1-1.8); Alkaline Phosphatase 72 U/L (38-126); Aspartate Amino Transferase 24 U/L (17-59); Bilirubin,Total 0.4 mg/dl (0.2-1.3); Blood Urea Nitrogen 13 mg/dl (9-20); Calcium 7.5 mg/dl (8.4-10.2); Carbon Dioxide 21 mmol/L (22.0-30.0); Creatinine Clearance Estimated 74 mL/min (50-200); Estimated Glomerular Filt Rate 95 ml/min (>60); GFR (African American) 115 ML/MIN (>60); Globulin 2.7 g/dL (1.3-3.2); Glucose 74 mg/dl (74-100); Total Protein,Serum 5.7 g/dl (6.3-8.2)
[2022-06-07 07:34] VITALS: BP 119/62; PULSE 66; RESP 16; TEMP 36.4; O2SAT 94
[2022-06-07 07:34] LABS: Lymphocytes % 18 % (10-50); Monocytes % 2 % (2-9); Neutrophils % 80 % (42-76); Platelet Estimate Normal; RBC Morphology Normal; Total Cells Counted 100
--- NOTE | 2022-06-07 08:05 | EXP.PN ---
Subjective *Date: 06/07/22 *Time: 08:05 Interval history: States he feels better than yesterday. He did sleep. He has been up to the bedside commode. He states he sit up in a chair yesterday. He is eating better. He denies nausea. Stools are soft. He is voiding QS. He denies chest pain and shortness of breath. He has periodic coughing spasms. Exam Data for Last 24 hours Vital signs and Labs for Last 24 Hours: Temp Pulse Resp BP Pulse Ox 97.5 F L 66 16 119/62 94 L 06/07/22 07:34 06/07/22 07:34 06/07/22 07:34 06/07/22 07:34 06/07/22 07:34 Laboratory Results - last 24 hr 06/06/22 11:03: POC Glucose 100 06/06/22 16:39: POC Glucose 89 06/06/22 20:13: POC Glucose 99 06/07/22 05:34: POC Glucose 80 06/07/22 06:05: WBC 7.3, RBC 4.39 L, Hgb 12.7 L, Hct 39.2 L, MCV 89.2, MCH 28.9, MCHC 32.4, RDW 16.5, Plt Count 188, MPV 9.0, Neut % (Auto) 74.8, Lymph % (Auto) 13.9, [place] % (Auto) 6.8, Eos % (Auto) 3.3, Baso % (Auto) 1.3, Neut # (Auto) 5.4, Lymph # (Auto) 1.0, [place] # (Auto) 0.5, Eos # (Auto) 0.2, Baso # (Auto) 0.1, Total Counted 100, Neutrophils % (Manual) 80 H, Lymphocytes % (Manual) 18, Monocytes % (Manual) 2, Platelet Estimate Normal, RBC Morphology Normal 06/07/22 06:05: Sodium 136, Potassium 4.0 D, Chloride 109 H, Carbon Dioxide 21 L, Anion Gap 10.0, BUN 13 D, Creatinine 0.80 D, Estimated Creat Clear 74, Estimated GFR 95, Est GFR ( Amer) 115 D, Glucose 74, Calcium 7.5 L, Total Bilirubin 0.4, AST 24, ALT 9 L, Alkaline Phosphatase 72, Total Protein 5.7 L, Albumin 3.0 L, Globulin 2.7, Albumin/Globulin Ratio 1.1 I & O for Last 24 hours: Intake & Output 06/04/22 06/05/22 06/06/22 06/07/22 11:59 11:59 11:59 11:59 Intake Total 3139 / 3139 2908 / 2908 2438 / 2438 Output Total 400 / 400 0 / 0 550 / 550 Balance 2739 / 2739 2908 / 2908 1888 / 1888 Weight 168 lb 1 oz 170 lb 8 oz 170 lb 6.4 oz 382 lb 8.032 oz Microbiology Reports for the Last 24 Hours: Microbiology 06/04/22 05:38 Blood Blood Culture - Preliminary NO GROWTH AFTER 48 HOURS 06/04/22 05:38 Urine,Clean Catch Urine Culture - Final NO GROWTH AFTER 48 HOURS 06/04/22 05:38 Blood Blood Culture - Preliminary NO GROWTH AFTER 48 HOURS Constitutional Constitutional: no acute distress *Routine Respiratory Exam Respiratory: Present rhonchi (Bilateral scattered rhonchi posteriorly) *Routine Cardiovascular Exam Cardiovascular: Present RRR *Routine Abdominal Exam Abdominal: Present soft, normoactive bowel sounds and tenderness (Diffusely, mildly tender); Absent distended or guarding *Routine Extremities Exam Extremities: Absent edema or calf tenderness *Routine Neurological Exam Neurological: Present alert and oriented X3 Assessment and Plan *Assessment and plan (1) [place]-vesical fistula: Status: Acute Category: Medical Code(s): N32.1 - Vesicointestinal fistula (2) Type 2 diabetes mellitus: Status: Acute Category: Medical Code(s): E11.9 - Type 2 diabetes mellitus without complications (3) Hypokalemia: Status: Acute Category: Medical Code(s): E87.6 - Hypokalemia (4) Hypertension: Status: Chronic Category: Medical Code(s): I10 - Essential (primary) hypertension (5) Tobacco use disorder: Status: Chronic Category: Medical Code(s): F17.200 - Nicotine dependence, unspecified, uncomplicated (6) UTI (urinary tract infection): Status: Acute Qualifiers: Hematuria presence: without hematuria Urinary tract infection type: site unspecified Qualified Code(s): N39.0 - Urinary tract infection, site not specified Category: Medical Code(s): N39.0 - Urinary tract infection, site not specified Plan Patient had a PICC line placed last evening with plans for him to be discharged home today on Invanz. His colorectal appointment scheduled
[2022-06-07 08:10] VITALS: BMI 24.0
--- NOTE | 2022-06-07 09:09 | P.PN_ITS ---
Subjective *Date: 06/07/22 *Time: 09:09 Medical Exam Vital signs and Labs for Last 24 Hours: Vital Signs Temp Pulse Resp BP Pulse Ox 06/07/22 07:34 97.5 F L 66 16 119/62 94 L 06/07/22 04:00 97.9 F 87 18 135/63 96 06/06/22 20:00 97 06/06/22 20:00 98.8 F 76 20 133/60 06/06/22 15:38 98.2 F 55 L 18 109/62 L 97 Intake and Output 06/06/22 06/07/22 06/07/22 23:59 07:59 15:59 Intake Total 1358 / 2538 840 / 840 Output Total 200 / 400 350 / 350 0 / 350 Balance 1158 / 2138 490 / 490 0 / 490 Intake: Intake, Oral Amount 240 / 720 240 / 240 Intake, Total IV Amount 1118 / 1818 600 / 600 0.45% NaCl w/20mEq KCL 1,000 ml 1118 / 1718 600 / 600 @ 75 mls/hr IV .[id number] [facility] Rx #:[id number] Output: Output, Urine Amount 200 / 400 350 / 350 0 / 350 Other: Number of Unmeasured Voids 1 1 Number of Bowel Movements 1 Weight 173.5 kg 80.286 kg Patient Weight 06/07/22 23:59 Weight 80.286 kg Laboratory Results - last 24 hr 06/06/22 11:03: POC Glucose 100 06/06/22 16:39: POC Glucose 89 06/06/22 20:13: POC Glucose 99 06/07/22 05:34: POC Glucose 80 06/07/22 06:05: WBC 7.3, RBC 4.39 L, Hgb 12.7 L, Hct 39.2 L, MCV 89.2, MCH 28.9, MCHC 32.4, RDW 16.5, Plt Count 188, MPV 9.0, Neut % (Auto) 74.8, Lymph % (Auto) 13.9, [place] % (Auto) 6.8, Eos % (Auto) 3.3, Baso % (Auto) 1.3, Neut # (Auto) 5.4, Lymph # (Auto) 1.0, [place] # (Auto) 0.5, Eos # (Auto) 0.2, Baso # (Auto) 0.1, Total Counted 100, Neutrophils % (Manual) 80 H, Lymphocytes % (Manual) 18, Monocytes % (Manual) 2, Platelet Estimate Normal, RBC Morphology Normal 06/07/22 06:05: Sodium 136, Potassium 4.0 D, Chloride 109 H, Carbon Dioxide 21 L, Anion Gap 10.0, BUN 13 D, Creatinine 0.80 D, Estimated Creat Clear 74, Estimated GFR 95, Est GFR ( Amer) 115 D, Glucose 74, Calcium 7.5 L, Total Bilirubin 0.4, AST 24, ALT 9 L, Alkaline Phosphatase 72, Total Protein 5.7 L, Albumin 3.0 L, Globulin 2.7, Albumin/Globulin Ratio 1.1 I & O for Labs for Last 24 Hours: Intake & Output 06/04/22 06/05/22 06/06/22 06/07/22 23:59 23:59 23:59 23:59 Intake Total 1799 / 2799 3308 / 3308 2538 / 2538 840 / 840 Output Total 0 / 0 400 / 400 200 / 400 350 / 350 Balance 1799 / 2799 2908 / 2908 2338 / 2138 490 / 490 Weight 76.232 kg 77.337 kg 77.292 kg 80.286 kg Microbiology Reports for the Last 24 Hours: Microbiology 06/04/22 05:38 Blood Blood Culture - Preliminary NO GROWTH AFTER 48 HOURS 06/04/22 05:38 Urine,Clean Catch Urine Culture - Final NO GROWTH AFTER 48 HOURS 06/04/22 05:38 Blood Blood Culture - Preliminary NO GROWTH AFTER 48 HOURS The patient's infection will respond to the chosen ABx?: Yes Is the patient receiving the right drug, dose, and route?: No Could a more targeted ABx be ordered?: No (WBC WNL, AFEBRILE, BLOOD AND URINE CX (-))
--- NOTE | 2022-06-07 10:06 | CARE MANAGER ---
Per Dr. Domínguez, patient has been set up with Dr. Rodriguez, Colorectal surgeon on Tuesday 06/13 @ 1500. He is discharging today with orders for Invanz 1 gm daily IV, and he plans to come to our infusion center. Patient educated on how outpatient infusions, including where to check in weekdays and weekends. No other needs known at this time. CM will continue to follow.
[2022-06-07 11:45] LABS: POC Glucose,Bedside 94 (70-110)
--- NOTE | 2022-06-08 13:35 | CARE MANAGER ---
Patient is currently in infusion receiving antibiotic. Infusion nurse states patient is doing well and she will remind him of follow up appointments.
--- NOTE | 2022-06-15 08:39 | EXP.DC.SUM ---
General Admission date:: 06/04/22 Discharge date: 06/07/22 HPI HPI HPI: 72-year-old white male was recently diagnosed with colovesicular fistula. He has been maintained outpatient on p.o. antibiotics (Levaquin and metronidazole )after his hospitalization in May. He is scheduled to see Dr. Ginger Rodriguez, June 27 but presented in the emergency room feeling quite poorly. He had been seen earlier in the office in [place]. He has not been febrile. He has had nausea but no vomiting. He is diabetic. His potassium on admission is 3.1 and his white blood cell count is 12,900. Hospital Course Hospital Course Hospital Course: The patient was admitted for IV antibiotics and IV fluids. It was felt he needed transfer to colorectal surgery. His white blood cell count did normalize. His potassium remained low and had to be replaced. He was able to eat some solid food and continued with periodic nausea. Dr. Domínguez did spoke with Dr. Ginger Ron and she planned to see the patient on 06/08/2022 in her office. She suggested IV Invanz daily. A PICC line was ordered and the patient was able to be discharged on 06/07/2022. He will follow-up with the colorectal surgeon on 06/08/2022. Exam Data for Last 24 hours Vital signs and Labs for Last 24 Hours: Temp Pulse Resp BP Pulse Ox 97.5 F L 66 16 119/62 94 L 06/07/22 07:34 06/07/22 07:34 06/07/22 07:34 06/07/22 07:34 06/07/22 07:34 Narrative: Constitutional Constitutional: mild distress and chronically ill appearing *Routine HEENT Exam Head: Present normocephalic Eye: Present PERRL; Absent conjunctival icterus ENT: Present mucous membranes moist *Routine Neck Exam Neck: Present full ROM Routine Chest/Breast/Axilla Exam Chest wall: Absent tenderness *Routine Respiratory Exam Respiratory: Present CTA bilaterally; Absent respiratory distress *Routine Cardiovascular Exam Cardiovascular: Present RRR and S4 *Routine Abdominal Exam Abdominal: Present soft and tenderness (Some lower abdominal tenderness); Absent rebound *Routine Rectal Exam Rectal:: deferred *Routine Genitalia Exam Genitalia:: normal male (Bilateral hydroceles) *Routine Extremities Exam Extremities: Present edema (Trace) Routine Back/Spine/Pelvis Exam Back/Spine: Present full ROM *Routine Skin Exam Skin: Present intact, dry and pallor; Absent cyanosis *Routine Neurological Exam Neurological: Present alert and oriented X3 Routine Psychiatric Exam Psychiatric: Present normal affect (No change) DS: Diagnosis Discharge Diagnosis (1) [place]-vesical fistula: Status: Acute (2) Type 2 diabetes mellitus: Status: Acute (3) Hypokalemia: Status: Resolved (4) Hypertension: Status: Chronic (5) Tobacco use disorder: Status: Chronic (6) UTI (urinary tract infection): Status: Resolved Meds Home Medications and Allergies Home Medications Medication Instructions Recorded Confirmed Type allopurinol 300 mg tablet 300 mg PO DAILY gout 05/20/22 06/14/22 History atenolol 100 mg tablet 100 mg PO DAILY Hypertension 05/20/22 06/14/22 History potassium chloride 20 mEq 20 meq PO DAILY potassium 05/20/22 06/14/22 History tablet,extended release(part/cryst) replacement tamsulosin 0.4 mg capsule 0.4 mg PO HS prostate 05/20/22 06/14/22 History triamterene 37.5 1 tab PO DAILY Hypertension 05/20/22 06/14/22 History mg-hydrochlorothiazide 25 mg tablet metformin 500 mg tablet,extended 500 mg PO DAILY Diabetes 05/21/22 06/14/22 History release 24 hr ertapenem 1 gram solution for 1 g IM DAILY colovesicular fistula 06/07/22 06/14/22 Rx injection (Invanz) #10 ea doxepin 10 mg capsule 10 mg PO DAILY MEMORY 06/08/22 06/14/22 History New Prescriptions to Start Prescriptions: ertapenem [Invcatherine] Akbar Domínguez Allergies Allergy/AdvReac Type Severity Reaction Status Date / Time shellfish derived Allergy Intermediate DIARRHEA/VO Verified 06/10/22
== END 2022-06-07 14:10 | disposition home or self-care (01) ==
LOC: ER 07:06 → 2ND 08:06
PROVIDERS: Nurse Practitioner Family; Admitting Provider Family Medicine; Emergency Provider Emergency Medicine; PCP Family Medicine; Visit Provider Family Medicine
DX: N32.1 Vesicointestinal fistula (principal); F17.210 Nicotine dependence, cigarettes, uncomplicated; E87.6 Hypokalemia; I10 Essential (primary) hypertension; E11.9 Type 2 diabetes mellitus without complications; Z79.899 Other long term (current) drug therapy; Z79.84 Long term (current) use of oral hypoglycemic drugs; N39.0 Urinary tract infection, site not specified; Z20.822 Contact with and (suspected) exposure to COVID-19
CPT/HCPCS: G0378; 36415; 36569; 71045; 74176; 80048; 80053; 81001; 82150; 82962; 83605; 83690; 84145; 84484; 85007; 85014; 85018; 85025; 85048; 85049; 85651; 86140; 87040; 87086; 93005; 99285; C1751; C9803; J1956; J2405; U0003; U0005

== ENCOUNTER 2022-06-08 12:58 | Outpatient (CLI) | payer MEDICARE, BC, SELFPAY ==
[2022-06-08 13:09] VITALS: BP 123/44; PULSE 61; RESP 16
[2022-06-08 13:43] VITALS: BP 121/56; PULSE 62; RESP 16
== END 2022-06-08 14:00 | disposition home or self-care (01) ==
LOC: INF 12:59
PROVIDERS: PCP Family Medicine; Visit Provider Family Medicine
DX: N32.1 Vesicointestinal fistula (principal); N39.0 Urinary tract infection, site not specified
CPT/HCPCS: 96365; J1335

== ENCOUNTER 2022-06-09 12:38 | Outpatient (CLI) | payer MEDICARE, BC, SELFPAY ==
[2022-06-09 13:20] VITALS: BP 103/58; PULSE 63; RESP 16; O2SAT 97
[2022-06-09 13:50] VITALS: BP 128/61; PULSE 53; RESP 16
== END 2022-06-09 14:15 | disposition home or self-care (01) ==
LOC: INF 12:41
PROVIDERS: PCP Family Medicine; Visit Provider Family Medicine
DX: N32.1 Vesicointestinal fistula (principal); N39.0 Urinary tract infection, site not specified
CPT/HCPCS: 96365; J1335

== ENCOUNTER → 2022-06-10 11:16 | Outpatient (CLI) | payer MEDICARE, BC, SELFPAY ==
[2022-06-10 19:12] LABS: Basophils # 0.1 K/mm3 (0-0.2); Basophils % 1.7 % (0.1-2.0); Eosinophils # 0.5 K/mm3 (0.0-0.4); Hematocrit 45.3 % (42.0-52.0); Hemoglobin 14.4 g/dL (14.1-18.0); Lymphocytes # 1.3 K/mm3 (0.7-4.5); Lymphocytes % 19.5 % (10-50); Mean Corpuscular HGB Conc 31.7 g/dL (31.8-35.4); Mean Corpuscular Hemoglobin 29.7 pg (27.0-31.2); Mean Corpuscular Volume 93.8 fl (80-94); Mean Platelet Volume 9.7 fl (7.4-10.4); Monocytes # 0.4 K/mm3 (0.1-1.0); Monocytes % 5.9 % (1.7-9.3); Neutrophils # 4.4 K/mm3 (1.8-7.8); Neutrophils % 65.8 % (37.0-80.0); Platelet Count 265 K/mm3 (142-424); Red Blood Count 4.83 M/mm3 (4.60-6.20); Red Cell Distribution Width 16.9 % (11.5-17.5); White Blood Count 6.6 K/mm3 (4.8-10.8)
== END ==
PROVIDERS: PCP Family Medicine; Visit Provider Family Medicine
DX: F17.200 Nicotine dependence, unspecified, uncomplicated (principal)
CPT/HCPCS: 85025

== ENCOUNTER 2022-06-10 13:59 | Outpatient (CLI) | payer MEDICARE, BC, SELFPAY ==
[2022-06-10 14:20] VITALS: BP 139/55; PULSE 49; RESP 16; O2SAT 100
[2022-06-10 14:55] VITALS: BP 144/54; PULSE 55; RESP 16
== END 2022-06-10 15:10 | disposition home or self-care (01) ==
LOC: INF 14:00
PROVIDERS: PCP Family Medicine; Visit Provider Family Medicine
DX: N32.1 Vesicointestinal fistula (principal); N39.0 Urinary tract infection, site not specified; Z45.2 Encounter for adjustment and management of vascular access device
CPT/HCPCS: 96365; J1335

== ENCOUNTER 2022-06-11 12:48 | Outpatient (CLI) | payer MEDICARE, BC, SELFPAY ==
[2022-06-11 12:50] VITALS: BMI 23.9
== END 2022-06-11 13:36 | disposition home or self-care (01) ==
LOC: INF 12:49
PROVIDERS: PCP Family Medicine; Visit Provider Family Medicine
DX: N32.1 Vesicointestinal fistula (principal); N39.0 Urinary tract infection, site not specified
CPT/HCPCS: 96365; J1335

== ENCOUNTER 2022-06-12 12:35 | Outpatient (CLI) | payer MEDICARE, BC, SELFPAY ==
[2022-06-12 13:01] VITALS: BP 134/64; PULSE 54; RESP 18; TEMP 36.6; O2SAT 98
[2022-06-12 13:34] VITALS: BP 132/54; PULSE 50; RESP 18; TEMP 36.4; O2SAT 99
== END 2022-06-12 13:37 | disposition home or self-care (01) ==
LOC: INF 12:36
PROVIDERS: PCP Family Medicine; Visit Provider Family Medicine
DX: N32.1 Vesicointestinal fistula (principal); N39.0 Urinary tract infection, site not specified
CPT/HCPCS: 96365; J1335

== ENCOUNTER 2022-06-13 11:13 | Outpatient (CLI) | payer MEDICARE, BC, SELFPAY ==
[2022-06-13 12:29] VITALS: BP 128/58; PULSE 65; RESP 18; O2SAT 99
[2022-06-13 12:42] VITALS: BP 131/62; PULSE 67; RESP 18; O2SAT 98
== END 2022-06-13 12:42 | disposition home or self-care (01) ==
LOC: INF 11:13
PROVIDERS: PCP Family Medicine; Visit Provider Family Medicine
DX: N32.1 Vesicointestinal fistula (principal); N39.0 Urinary tract infection, site not specified
CPT/HCPCS: 96365; J1335

== ENCOUNTER 2022-06-14 12:32 | Outpatient (CLI) | payer MEDICARE, BC, SELFPAY ==
[2022-06-14 12:37] VITALS: BMI 22.5
[2022-06-14 12:56] LABS: Chloride 108 mmol/L (98-107); Potassium 4.7 mmoL/L (3.5-5.1); Sodium 138 mmol/L (136-145)
[2022-06-14 12:59] LABS: Anion Gap 8.7 mEq/L (5-15); Blood Urea Nitrogen 15 mg/dl (9-20); Calcium 8.2 mg/dl (8.4-10.2); Carbon Dioxide 26 mmol/L (22.0-30.0); Creatinine Clearance Estimated 72 mL/min (50-200); Estimated Glomerular Filt Rate 95 ml/min (>60); GFR (African American) 115 ML/MIN (>60); Glucose 86 mg/dl (74-100)
[2022-06-14 13:15] VITALS: BP 130/75; PULSE 65; RESP 18; O2SAT 99
[2022-06-14 13:45] VITALS: BP 136/73; PULSE 67; RESP 18; O2SAT 99
== END 2022-06-14 13:55 | disposition home or self-care (01) ==
LOC: INF 12:33
PROVIDERS: PCP Family Medicine; Visit Provider Family Medicine
DX: N32.1 Vesicointestinal fistula (principal); N39.0 Urinary tract infection, site not specified
CPT/HCPCS: 80048; 96365; J1335

== ENCOUNTER 2022-06-15 12:27 | Outpatient (CLI) | payer MEDICARE, BC, SELFPAY ==
[2022-06-15 12:55] VITALS: BP 129/56; PULSE 56; RESP 18; O2SAT 98
[2022-06-15 13:39] VITALS: BP 132/61; PULSE 54; RESP 18
== END 2022-06-15 13:39 | disposition home or self-care (01) ==
LOC: INF 12:28
PROVIDERS: PCP Family Medicine; Visit Provider Family Medicine
DX: N32.1 Vesicointestinal fistula (principal); N39.0 Urinary tract infection, site not specified
CPT/HCPCS: 96365; J1335

== ENCOUNTER 2022-06-16 12:20 | Outpatient (CLI) | payer MEDICARE, BC, SELFPAY ==
[2022-06-16 12:52] VITALS: BP 136/53; PULSE 54; RESP 18; TEMP 36.5; O2SAT 98
[2022-06-16 13:40] VITALS: BP 121/67; PULSE 54; RESP 18; O2SAT 99
== END 2022-06-16 13:45 | disposition home or self-care (01) ==
LOC: INF 12:21
PROVIDERS: PCP Family Medicine; Visit Provider Family Medicine
DX: N32.1 Vesicointestinal fistula (principal); N39.0 Urinary tract infection, site not specified; Z45.2 Encounter for adjustment and management of vascular access device
CPT/HCPCS: 96365; J1335

== ENCOUNTER 2022-06-17 09:19 | Emergency (ER) | payer MEDICARE, BC, SELFPAY ==
[2022-06-17] VITALS (9 sets, daily range): BP systolic 125–158; BP diastolic 51–76; PULSE 53–83; RESP 16; TEMP 36.5; O2SAT 96–99; BMI 200.3
--- NOTE | 2022-06-17 09:23 | PC.NURSE ---
pt has a colostomy scheduled today@ 12 @ colorectal surgical @ [facility]. im calling to let them know pt was unable to attend due to be brought in by ems for a fall
--- NOTE | 2022-06-17 09:30 | PC.NURSE ---
SHAWN RENE at for pt kyleral
--- NOTE | 2022-06-17 09:40 | XR_ITS ---
FINAL REPORT CLINICAL HISTORY: fall, dizzy and weak COMPARISON: 06/06/2022 FINDINGS: A single portable view of the chest was obtained. Left-sided PICC line is noted. The heart size and pulmonary vascularity are within normal limits. The mediastinum is within normal limits. Mild atelectasis in the left lung base. The bony thorax is intact. IMPRESSION: Mild atelectasis left lung base. Reviewed, Interpreted and Dictated by Skinny Alford III, MD Transcribed by Roxi Nash Authenticated and [facility]
--- NOTE | 2022-06-17 09:40 | CT_ITS ---
FINAL REPORT TECHNIQUE: Axial images of the head were obtained without contrast. Coronal reformatted images were also obtained.This study was performed with techniques to keep radiation doses as low as reasonably achievable (ALARA). Individualized dose reduction techniques using automated exposure control or adjustment of mA and/or kV according to the patient's size were employed. CLINICAL HISTORY: fall, hit head COMPARISON: 05/29/2019 FINDINGS: There is no evidence of intracranial hemorrhage or mass. The ventricular size is within normal limits. There is no evidence of shift of the midline structures. No abnormal extra axial fluid collection is identified. No skull abnormality is seen on the bone window images. There is mucosal thickening in the left sphenoid sinus. IMPRESSION: No acute intracranial abnormality. Reviewed, Interpreted and Dictated by Skinny Alford III, MD Transcribed by Roxi Nash Authenticated and [facility]
--- NOTE | 2022-06-17 09:40 | XR_ITS ---
FINAL REPORT CLINICAL HISTORY: fall FINDINGS: Pelvis A single view was obtained. There is no acute fracture or dislocation. There are mild degenerative changes in the right hip. No soft tissue abnormality is identified. IMPRESSION: No acute process. Reviewed, Interpreted and Dictated by Skinny Alford III, MD Transcribed by Maye Quinn Authenticated and [facility]
--- NOTE | 2022-06-17 09:40 | CT_ITS ---
FINAL REPORT CLINICAL HISTORY: fall, hit head FINDINGS: Axial CT images of the cervical spine were obtained without contrast. Sagittal and coronal reformatted images were also obtained. This study was performed with techniques to keep radiation doses as low as reasonably achievable (ALARA). Individualized dose reduction techniques using automated exposure control or adjustment of mA and/or kV according to the patient's size were employed. There is no evidence of fracture or dislocation. There is fusion of C5-6. There is mild anterolisthesis of C2 on 3, C3 on 4, and C4 on 5. Moderate and severe degenerative changes are seen, worst at C6-7. There is multilevel mild neural foraminal narrowing. IMPRESSION: Multilevel degenerative disc disease without acute fracture. Reviewed, Interpreted and Dictated by Skinny Alford III, MD Transcribed by Maye Quinn Authenticated and . [facility]
--- NOTE | 2022-06-17 09:44 | HMH.EDGENADL ---
Discharge Plan Disposition Patient Disposition: Home, Self-Care Condition: Good Prescriptions Prescriptions: New atenolol 50 mg tablet 50 mg PO DAILY Qty: 30 0RF No Action atenolol 100 mg tablet 100 mg PO DAILY Label Comments: TAKE ONE TABLET BY MOUTH DAILY FOR HYPERTENSION potassium chloride 20 mEq tablet,ER particles/crystals 20 meq PO DAILY Label Comments: TAKE 1 TABLET BY MOUTH TWICE A DAY tamsulosin 0.4 mg capsule 0.4 mg PO HS Label Comments: TAKE 1 CAPSULE BY MOUTH AT BEDTIME NIGHTLY FOR URINARY FLOW. triamterene-hydrochlorothiazid 37.5-25 mg tablet 1 tab PO DAILY Label Comments: TAKE 1 TABLET BY MOUTH ONCE DAILY FOR HYPERTENSION. allopurinol 300 mg tablet 300 mg PO DAILY Label Comments: TAKE 1 TABLET BY MOUTH ONCE DAILY FOR GOUT metformin 500 mg tablet extended release 24 hr 500 mg PO DAILY Label Comments: TAKE 1 TABLET BY MOUTH ONCE DAILY. ertapenem [Invanz] 1 gram recon soln 1 g IM DAILY Qty: 10 0RF doxepin 10 mg capsule 10 mg PO DAILY Referrals Follow up/Referrals: Provider,Referral, MD [Referring] - See instructions Activity Restrictions/Add. Instructions Additional Instructions/Restrictions: Stop taking atenolol 100 mg. Start taking atenolol 50 mg daily, begin tomorrow morning. A prescription for this was sent to your pharmacy. Follow-up with your primary care provider next week. Call Dr. Colbert to reschedule your colonoscopy. Additional instructions for FACIAL LACERATION: Clean the wound daily with soap and water. You may shower. Apply a thin film of antibiotic ointment such as neosporin or triple antibiotic after showering. Avoid submerging the wound, no swimming. See your primary care physician or return to the [facility]gent [facility] Center in 5 days for suture removal. The [facility]gent Treatment Center is open 8 AM to 8 PM, 7 days a week. Return if any signs of infection including increasing pain, pus drainage, swelling, redness, red streaks, or fever. Clinical Impressions Clinical Impression: Forehead laceration, Fall, Unsteadiness, Bradycardia, sinus Instructions Patient Instructions: DI for Laceration Repair, How to Prevent Falls, DI for Closed Head Injury, DI for Bradycardia Discharge ED Provider: Lavell Pierre Adult [facility] General Chief complaint: Wound/Laceration Stated complaint: fall Time Seen by Provider: 06/17/22 09:28 Mode of Arrival: EMS Source of Information: Patient and EMS Limitations: No Limitations Description of Symptoms (Recalled from ER Triage Doc. by RN): Presents from home d/t head laceration secondary to fall at approx. 07:00-07:30a. Pt was prepping for outpatient Colonoscopy today and became lightheaded. +N/V/D. Denies fever [employer]. Denies blood thinners. Neg. LOC. History of Present Illness HPI narrative: Patient is brought in by ambulance. States that he has been wounds in the and dizzy and confused all night long. He tried walking to the bathroom this morning using a walker and got dizzy and fell. He thinks he hit his head on a bookcase. He sustained a laceration to his forehead. He does not think he had loss of consciousness. He denies headache or neck pain. He began vomiting after arrival in the emergency department. He denies other injuries. He has been prepping for colonoscopy with Amberu last evening. He was supposed to have the colonoscopy today. Because of his prep, he has been having watery bowel movements all night long. States he has been feeling unsteady for some time, more than a week, and therefore has been using a walker that he borrowed from a friend about 8 days ago. His unsteadiness will wax and wane. He says sometimes he has to use a walker in the morning but then can get by just using his cane the rest of the day. Because of his colonoscopy prep he has not had any of his usual medications since yesterday morning. Noted to be bradycardic, h
--- NOTE | 2022-06-17 09:54 | PC.NURSE ---
pt to radiology
--- NOTE | 2022-06-17 09:56 | PC.NURSE ---
Labs drawn from PICC, single lumen LUE with aseptic technique. Pt to CT.
[2022-06-17 10:06] LABS: Basophils # 0.1 K/mm3 (0-0.2); Eosinophils # 0.1 K/mm3 (0.0-0.4); Hematocrit 43.6 % (42.0-52.0); Hemoglobin 14.4 g/dL (14.1-18.0); Lymphocytes # 0.7 K/mm3 (0.7-4.5); Lymphocytes % 11.3 % (10-50); Mean Corpuscular HGB Conc 33.1 g/dL (31.8-35.4); Mean Corpuscular Hemoglobin 29.3 pg (27.0-31.2); Mean Corpuscular Volume 88.6 fl (80-94); Mean Platelet Volume 8.2 fl (7.4-10.4); Monocytes # 0.1 K/mm3 (0.1-1.0); Monocytes % 2.1 % (1.7-9.3); Neutrophils # 5.4 K/mm3 (1.8-7.8); Neutrophils % 84.5 % (37.0-80.0); Platelet Count 282 K/mm3 (142-424); Red Blood Count 4.92 M/mm3 (4.60-6.20); Red Cell Distribution Width 16.1 % (11.5-17.5); White Blood Count 6.4 K/mm3 (4.8-10.8)
[2022-06-17 10:12] LABS: Alanine Aminotransferase 25 U/L (12-78); Albumin Level 3.6 g/dl (3.5-5.0); Albumin/Globulin Ratio 1.2 (1.1-1.8); Alkaline Phosphatase 151 U/L (38-126); Anion Gap 9.9 mEq/L (5-15); Aspartate Amino Transferase 43 U/L (17-59); Bilirubin,Total 0.5 mg/dl (0.2-1.3); Blood Urea Nitrogen 15 mg/dl (9-20); Calcium 8.3 mg/dl (8.4-10.2); Carbon Dioxide 25 mmol/L (22.0-30.0); Chloride 107 mmol/L (98-107); Creatinine Clearance Estimated 74 mL/min (50-200); Estimated Glomerular Filt Rate 95 ml/min (>60); GFR (African American) 115 ML/MIN (>60); Globulin 3.1 g/dL (1.3-3.2); Glucose 118 mg/dl (74-100); Magnesium 2.1 mg/dl (1.6-2.3); Potassium 3.9 mmoL/L (3.5-5.1); Sodium 138 mmol/L (136-145); Total Protein,Serum 6.7 g/dl (6.3-8.2)
--- NOTE | 2022-06-17 10:12 | PC.NURSE ---
pt back to room
--- NOTE | 2022-06-17 10:19 | PC.NURSE ---
at bedside for laceration repair
[2022-06-17 10:23] LABS: Troponin I < 0.01 ng/ml (0.00-0.034)
--- NOTE | 2022-06-17 11:01 | PC.NURSE ---
No complaints at this time.
--- NOTE | 2022-06-17 11:19 | PC.NURSE ---
Dr Pierre consulting with Dr Hatfield about patient.
--- NOTE | 2022-06-17 11:31 | PC.NURSE ---
rounded on pt no complaints at this time, @ bs
--- NOTE | 2022-06-17 11:33 | PC.NURSE ---
rounded on pt he's sleeping ,call light @ bs
[2022-06-17 11:45] LABS: Microscopic, Urine URINE MICROSCOPIC (MICROSCOPIC)
[2022-06-17 11:48] LABS: Appearance,Urine CLEAR (Clear); Bilirubin,Urine Negative (Negative); Blood, Urine Negative (Negative); Color,Urine YELLOW (Yellow); Glucose,Urine (UA) Negative (Negative); Ketones,Urine Negative (Negative); Leukocyte Esterase,Urine TRACE (Negative); Nitrate,Urine Negative (Negative); Protein,Urine TRACE (Negative); Specific Gravity, Urine >= 1.030 (1.005-1.030); Urobilinogen,Urine 0.2 EU/dl (0.2)
--- NOTE | 2022-06-17 12:00 | PC.NURSE ---
Spoke with Kim Jon [phone] regarding pickup.
[2022-06-17 12:38] LABS: Bacteria,Urine Trace /lpf
== END 2022-06-17 12:33 | disposition home or self-care (01) ==
PROVIDERS: Emergency Provider Emergency Medicine; PCP Family Medicine
DX: S01.81XA Laceration without foreign body of other part of head, initial encounter (principal)
CPT/HCPCS: 70450; 71045; 72125; 72170; 80053; 81001; 83735; 84484; 85025; 87086; 96365; J1335; J2405

== ENCOUNTER 2022-06-17 12:34 | Outpatient (CLI) | payer MEDICARE, BC, SELFPAY ==
[2022-06-17 12:50] VITALS: BP 140/74; PULSE 55; RESP 18; TEMP 36.6; O2SAT 97
[2022-06-17 13:40] VITALS: BP 135/68; PULSE 56; RESP 18; O2SAT 98
--- NOTE | 2022-06-17 15:54 | PC.NURSE ---
AT 1230 PT WAS BROUGHT TO INFUSION FROM ER AFTER BEING SEEN AND DISCHARGED FOR A FALL AND HEAD LACERATION. UPON ARRIVAL PT REPORTED BEING VERY DIZZY WHEN TRANSFERRED TO CHAIR. AT 1240 PT BEGAN VOMITING AND REPORTED STILL BEING VERY DIZZY. RN CALLED [facility] OFFICE IN [place] AND NURSE (MACKENZIE) FROM OFFICE GAVE VERBAL ORDER ON BEHALF OF FAROOQ REYES APRN FOR ZOFRAN 4MG Q6 HOURS NEEDED. AT 1320, THIS RN GAVE 4MG ZOFRAN IV PER JUN. 10 MINS LATER PT BEGAN VOMITING AGAIN AND REPORTED STILL BEING VERY DIZZY BUT WAS ABLE TO ANSWER ALL QUESTIONS APPROPRIATELY. AT 1330, THIS RN CALLED ER AND SPOKE TO SIL TEE RN ABOUT VOMITING AND DIZZINESS. SHE SPOKE WITH DR VALENTIN AND HE ASKED FOR PT TO RETURN TO ER FOR FURTHER EVALUATION. PT WAS TRANSFERRED TO ER AT 1345 VIA WHEELCHAIR.
== END 2022-06-17 13:40 | disposition home or self-care (01) ==
LOC: INF 12:35
PROVIDERS: PCP Family Medicine; Visit Provider Family Medicine
DX: R11.2 Nausea with vomiting, unspecified (principal)
CPT/HCPCS: 96365; J1335; J2405

== ENCOUNTER 2022-06-17 13:48 | Observation (INO) | payer MEDICARE, BC, SELFPAY ==
--- NOTE | 2022-06-17 09:46 | ECG_ITS ---
APPROVED REPORT Exam: Resting ECG HR:50 bpm ECG Measurements Heart Rate 50 AXES OR 192 P 15 QRSd 134 QRS -22 QT 477 T 103 QTc 451 Conclusion SINUS BRADYCARDIA WITH OCCASIONAL VENTRICULAR PREMATURE COMPLEXES LEFT BUNDLE BRANCH BLOCK [120+ ms QRS DURATION, 80+ ms Q/S IN V1/V2, 85+ ms R IN I/aVL/V5/V6] ABNORMAL ECG UNCONFIRMED REPORT Electronically signed by : Nestor Mejia MD 06/18/2022 15:14:00
[2022-06-17 14:07] VITALS: BP 136/66; PULSE 50; RESP 16; TEMP 36.4; O2SAT 100; BMI 24.0
--- NOTE | 2022-06-17 14:07 | HMH.EDGENADL ---
Discharge Plan Disposition Patient Disposition: Admitted as Observation Condition: Fair Prescriptions Prescriptions: No Action atenolol 100 mg tablet 100 mg PO DAILY Label Comments: TAKE ONE TABLET BY MOUTH DAILY FOR HYPERTENSION potassium chloride 20 mEq tablet,ER particles/crystals 20 meq PO DAILY Label Comments: TAKE 1 TABLET BY MOUTH TWICE A DAY tamsulosin 0.4 mg capsule 0.4 mg PO HS Label Comments: TAKE 1 CAPSULE BY MOUTH AT BEDTIME NIGHTLY FOR URINARY FLOW. triamterene-hydrochlorothiazid 37.5-25 mg tablet 1 tab PO DAILY Label Comments: TAKE 1 TABLET BY MOUTH ONCE DAILY FOR HYPERTENSION. allopurinol 300 mg tablet 300 mg PO DAILY Label Comments: TAKE 1 TABLET BY MOUTH ONCE DAILY FOR GOUT metformin 500 mg tablet extended release 24 hr 500 mg PO DAILY Label Comments: TAKE 1 TABLET BY MOUTH ONCE DAILY. ertapenem [Invanz] 1 gram recon soln 1 g IM DAILY Qty: 10 0RF doxepin 10 mg capsule 10 mg PO DAILY atenolol 50 mg tablet 50 mg PO DAILY Qty: 30 0RF Referrals Follow up/Referrals: Akbar Domínguez MD [Primary Care Provider] - See instructions Clinical Impressions Clinical Impression: Unsteadiness, Vomiting Instructions Patient Instructions: DI for Nausea -- Adult, DI for Nausea -- Child, DI for Diarrhea and Traveler's Diarrhea -- Adult, DI for Diarrhea and Traveler's Diarrhea -- Child Discharge ED Provider: Lavell Pierre General Adult HPI General Chief complaint: Nausea/Vomiting/Diarrhea Stated complaint: vomiting,weakness,nausea Time Seen by Provider: 06/17/22 14:00 History of Present Illness HPI narrative: The patient was seen by me this morning for a fall with a forehead laceration. He was discharged from here and went to the infusion department to have an antibiotic infusion that he has been getting daily because of a colovesical fistula. He had had an episode of vomiting when he arrived in the emergency department, treated with Zofran, but then during the remainder of his stay he had had no further vomiting and felt good at the time of discharge. He says however when he got to the infusion department he felt unsteady when they moved him to the treatment chair. He then tried to eat a piece of a sandwich and some Jell-O and apparently vomited that up. He was given additional Zofran in the infusion department. He then was sent back to the emergency department. He denies any other new complaints. Related Data Home Medications Medication Instructions Recorded Confirmed allopurinol 300 mg tablet 300 mg PO DAILY gout 05/20/22 06/16/22 atenolol 100 mg tablet 100 mg PO DAILY Hypertension 05/20/22 06/16/22 potassium chloride 20 mEq 20 meq PO DAILY potassium 05/20/22 06/16/22 tablet,extended release(part/cryst) replacement tamsulosin 0.4 mg capsule 0.4 mg PO HS prostate 05/20/22 06/16/22 triamterene 37.5 1 tab PO DAILY Hypertension 05/20/22 06/16/22 mg-hydrochlorothiazide 25 mg tablet metformin 500 mg tablet,extended 500 mg PO DAILY Diabetes 05/21/22 06/16/22 release 24 hr doxepin 10 mg capsule 10 mg PO DAILY MEMORY 06/08/22 06/16/22 Previous Rx's Medication Instructions Recorded ertapenem 1 gram solution for 1 g IM DAILY colovesicular fistula 06/07/22 injection (Invanz) #10 ea atenolol 50 mg tablet 50 mg PO DAILY #30 tabs 06/17/22 Allergies Allergy/AdvReac Type Severity Reaction Status Date / Time shellfish derived Allergy Intermediate DIARRHEA/VO Verified 06/10/22 11:21 [From SHELLFISH (FOOD/DRUG)] GENE/[facility] Disclaimer: The information contained in this section may have been updated after the patient was seen, as this information can be updated by other users. Medical History Anal fistula Benign prostatic hyperplasia with hesitancy Hypertension Family History (Reviewed 06/10/22 @ 11:22 by Cheryl
--- NOTE | 2022-06-17 14:09 | PC.NURSE ---
calling for he left for the day so paging dr spencer who design studio consultant for him for pt to be admitted to [facility]
--- NOTE | 2022-06-17 14:16 | PC.NURSE ---
dr spencer waiting to speak to er md about [place] pt being admitted
[2022-06-17 14:31] VITALS: BP 148/70; PULSE 50; O2SAT 95
--- NOTE | 2022-06-17 14:31 | PC.NURSE ---
Rehab called regarding new order for PT/OT eval
--- NOTE | 2022-06-17 14:35 | PC.NURSE ---
pt resting comfortably on the ed stretcher at this time. call light within reach
--- NOTE | 2022-06-17 14:37 | PC.NURSE ---
Confirmed with rehab, received OT/PT order on printer.
[2022-06-17 14:42] LABS: Coronavirus 19, PCR Not Detected (NotDetected); Influenza A, PCR Not Detected (NotDetected); Influenza B, PCR Not Detected (NotDetected)
--- NOTE | 2022-06-17 14:43 | PC.NURSE ---
PT/OT at BS for eval
--- NOTE | 2022-06-17 14:43 | PC.NURSE ---
PT at bedside
--- NOTE | 2022-06-17 14:48 | HMH.PHAINT1 ---
Pharmacy Intervention Comments: MEDICATION RECONCILIATION COMPLETED ON PATIENT USING EXTERNAL FILL HISTORY FROM PHARMACY, DISCHARGE SUMMARY FROM PREVIOUS ADMISSION, AND ER NOTE FROM EARLIER TODAY. -NARCISA CANTOR, PHARMD
--- NOTE | 2022-06-17 14:52 | PC.NURSE ---
Report called to Jacquie. Awaiting COVID results prior to transfer to inpatient.
--- NOTE | 2022-06-17 15:14 | HMH.PTEV ---
Physical Therapy Evaluation Rehab PT IP Evaluation Start: 06/17/22 14:29 Freq: ONCE Status: Active Protocol: Document 06/17/22 14:58 PEREZ (Rec: 06/17/22 15:13 PEREZ [id number]) Subjective/History History History Pt presented to the ED with reports of a fall at home yesterday (06/16/2022) resulting in a forehead laceration. Pt was discharged from the ED this morning and went to the infusion department to receive an antibiotic infusion. While at the infusion department, pt became unsteady and began vomitng. Pt was then sent to the ED again. Subjective Subjective Pt presents supine in bed, pleasant and agreeable to therapy evaluation. Pt reports that he continues to experience occasional nausea. Pt denies reports of pain at rest. Rehab PT IP Eval Objective Appearance Patient Behavior Appropriate,Cooperative Patient Orientation Person,Place,Time,Name Difficulty following instructions none Speech Pattern Clear,Appropriate,Soft-Spoken Ambulation Patient Able to Ambulate Yes Ambulation Observation IP General Gait Pattern Observation Wide Based Gait Ambulation Distance (feet) 20 Ambulation Assistive Device None Ambulation Ability Minimal x 1 (25% assist) Balance Ability to Arise Able, uses arms to help Sitting Balance Steady, safe Standing Balance Unsteady Dynamic Sitting Balance Ability Good Dynamic Standing Balance Ability Fair Transfers Bed Transfer Ability Supervision/Stand by Sit to Stand Bed Transfer Ability Contact Guard/Hand Hold Sit to Stand Chair Transfer Ability Contact Guard/Hand Hold Pain Generalized Pain Intensity 0 MMT All Extremities PT MMT WFL Rehab PT IP prob,goals,plan Problems Date of Evaluation: 06/17/22 PT IP Problems Bed Mobility,Transfers,Gait, Balance,Safety Rehab Potential Rehab Potential Good Equipment Needs Assistive Devices Rolling / Wheeled Walker Plan PT Intervention Plan Bed Mobility,Transfers,Gait, Balance,Self care,Safety, Therapeutic Exercise PT Plan Frequency
--- NOTE | 2022-06-17 15:18 | PC.NURSE ---
Updated DEYANIRA Dhillon regarding episode of vomiting with new orders of Phenergan and Meclizine (administered)
--- NOTE | 2022-06-17 15:25 | PC.NURSE ---
Med-Surg notified of neg COVID results.
[2022-06-17 15:33] VITALS: BP 148/70; PULSE 50; RESP 16; TEMP 36.4; O2SAT 95
--- NOTE | 2022-06-17 15:34 | PC.NURSE ---
VU Crowder taking patient to 2nd floor via stretcher.
--- NOTE | 2022-06-17 15:36 | PC.NURSE ---
arrived to floor by stretcher from ED
--- NOTE | 2022-06-17 15:42 | HMH.OTEV ---
OT Inpatient Evaluation Rehab OT IP Evaluation Start: 06/17/22 14:30 Freq: ONCE Status: Active Protocol: Document 06/17/22 15:35 [facility] (Rec: 06/17/22 15:42 [facility] [id number]) Rehab OT IP Assessment Subjective History Pt oriented x 3 on arrival. Pt agreeable to engage in therapy evaluation at this time. Pt was admitted to [facility] on 06/17/22 due to vomiting, weakness,nausea. Prior to being in the hospital, pt lived at home alone. Pt claimed he was independent with all ADLs and IADLs. Pt still drove. He did use a cane out in public for improved safety. When he would grocery shop he used a scooter due to decreased endurance. Pt explains he has been using a walker the past couple days due to increased weakness. Pt has a past medical history of: Anal fistula Benign prostatic hyperplasia with hesitancy Hypertension Subjective My stomach still does not feel well. Objective Patient Orientation Person,Place,Birthday Upper Extremity Gross ROM WFL Bed Mobility bed mobility-scooting,bed mobility - supine/sit,bed mobility - rolling Assist Level Contact Guard/Hand Hold Transfer Training Sit/Stand Transfer Assist Level Contact Guard/Hand Hold Rehab OT IP prob,goals,plan Problems Date of Evaluation: 06/17/22 OT IP Problems Bed Mobility,Transfers,Balance ,Self care,Safety Rehab Potential Rehab Potential Good Equipment Needs Assistive Devices Rolling / Wheeled Walker Plan OT intervention Plan Bed Mobility,Transfers,Balance ,Self care,Safety,Therapeutic Exercise OT Plan Frequency BID Duration LOS Discharge Goals Bed Mobility Ability Standby Assistance Sit to Stand Chair Transfer Ability Supervision/Stand by,Contact Guard/Hand Hold Chair Mota
[2022-06-17 16:00] VITALS: BP 151/71; PULSE 53; RESP 18; TEMP 36.2
[2022-06-17 16:01] VITALS: BMI 22.8
[2022-06-17 16:23] LABS: POC Glucose,Bedside 94 (70-110)
--- NOTE | 2022-06-17 17:00 | PC.NURSE ---
PT IS RESTING IN BED. NO COMPLAINTS OF NAUSEA SINCE ARRIVING TO THE FLOOR. ALERT AND ORIENTED X4. LUNG SOUNDS CLEAR. ABDOMEN SOFT/TENDERNESS NOTED (UPPER QUADS). LUNG SOUNDS CLEAR. WILL CONTINUE TO MONITOR.
[2022-06-17 20:13] VITALS: BP 162/73; PULSE 71; RESP 22; TEMP 36.8; O2SAT 99
[2022-06-17 20:45] LABS: POC Glucose,Bedside 83 (70-110)
[2022-06-18] VITALS (7 sets, daily range): BP systolic 113–143; BP diastolic 52–82; PULSE 39–58; RESP 16–20; TEMP 36.3–37; O2SAT 96–99; BMI 23.3
[2022-06-18 06:32] LABS: POC Glucose,Bedside 86 (70-110)
--- NOTE | 2022-06-18 10:56 | EXP.HP ---
History of Present Illness *Admission Date: 06/17/22 *Reason for visit:: Vomiting *History of present illness: Mr. Childers is a patient of the [facility] health clinic in [place], who was recently diagnosed with a colo-vesical fistula, who is being managed by Dr. Domínguez. He has had several recent admission to the hospital and on the day of admission he was preparing to have a colonoscopy in [place] with Dr. Ron. After taking the bowel prep he had a lot of vomiting and had an unsteady gait. He feel at home and sustained a forehead laceration. He came to the ER here at [facility] and had an extensive evaluation preformed. His forehead laceration was repaired. He was found to be bradycardic, his beta luli dose was decreased and he was discharged. He went directly to the infusion center at [facility] to have his daily IV antibiotic and started vomiting again there so he was sent back to the emergency department for further evaluation. At that point plans were made for hospital admission. [facility] Disclaimer: The information contained in this section may have been updated after the patient was seen, as this information can be updated by other users. Medical History (Updated 06/18/22 @ 11:06 by Lukas Hatfield MD) Benign prostatic hyperplasia with hesitancy [place]-vesical fistula Hypertension Sleep apnea Tobacco use disorder Type 2 diabetes mellitus Family History Other Family history of cancer Social History (Updated 06/17/22 @ 15:53 by Alesia Richardson RN) Smoking Status: Current every day smoker tobacco type: cigarettes packs per day: 2 alcohol intake: never current occupational status: retired Travel in the last 8 weeks: None household members: none housing: house Review of Systems Constitutional Constitutional: Denies headache(s) and Denies weakness Eyes Eyes: Denies change in vision ENT Ears, Nose, Mouth, and Throat: Reports disequilibrium and Denies headache(s) *Cardiovascular Cardiovascular: Denies chest pain *Respiratory Respiratory: Denies cough *Gastrointestinal Gastrointestinal: Reports as per HPI *Genitourinary Genitourinary: Denies difficulty urinating *Musculoskeletal Musculoskeletal: Denies numbness *Neurologic Neurologic: Reports disequilibrium, Denies headache(s), Denies numbness and Denies weakness Meds Home Medications and Allergies Home Medications Medication Instructions Recorded Confirmed Type allopurinol 300 mg tablet 300 mg PO DAILY gout 05/20/22 06/17/22 History potassium chloride 20 mEq 20 meq PO BID potassium replacement 05/20/22 06/17/22 History tablet,extended release(part/cryst) tamsulosin 0.4 mg capsule 0.4 mg PO HS prostate 05/20/22 06/17/22 History triamterene 37.5 1 tab PO DAILY Hypertension 05/20/22 06/17/22 History mg-hydrochlorothiazide 25 mg tablet metformin 500 mg tablet,extended 500 mg PO DAILY Diabetes 05/21/22 06/17/22 History release 24 hr ertapenem 1 gram solution for 1 g IM DAILY colovesicular fistula 06/07/22 06/17/22 Rx injection (Invanz) #10 ea doxepin 10 mg capsule 10 mg PO HS Insomnia 06/08/22 06/18/22 History atenolol 50 mg tablet 50 mg PO DAILY Hypertension 06/17/22 06/17/22 History New Prescriptions to Start Prescriptions: Allergies Allergy/AdvReac Type Severity Reaction Status Date / Time shellfish derived Allergy Intermediate DIARRHEA/VO Verified 06/10/22 11:21 [From SHELLFISH (FOOD/DRUG)] MITING/COUG JAYE Exam Data for Last 24 hours Vital signs and Labs for Last 24 Hours: Temp Pulse Resp BP Pulse Ox 98.3 F 58 L 19 143/62 H 96 06/18/22 07:32 06/18/22 07:32 06/18/22 07:32 06/18/22 07:32 06/18/22 08:00 Laboratory Results - last 24 hr 06/17/22 14:29: SARS-CoV-2 (PCR) Not detected, Influenza A Untype (PCR) Not detected, Influenza Type B (PCR) Not detected 06/17/22 16:16: POC Glucose 94 06/17/22 20:38: POC Glucose 83 06/18/22 06:25: POC Gluco
[2022-06-18 11:28] LABS: POC Glucose,Bedside 118 (70-110)
[2022-06-18 16:17] LABS: POC Glucose,Bedside 89 (70-110)
--- NOTE | 2022-06-18 16:37 | PC.NURSE ---
Pt resting well in bed at this time. No N/V reported this shift. Tolerating meals well. IV ABT given with no adverse reactions. Alert and oriented. Pleasant and cooperative with care. Seen by this am with lovenox added for VTE.
--- NOTE | 2022-06-18 17:07 | PC.NURSE ---
pt has had no reports of nausea and vomiting this shift. has tolerated diet well. no c/o dizziness. vs stable
[2022-06-18 20:54] LABS: POC Glucose,Bedside 78 (70-110)
[2022-06-19 04:00] VITALS: BP 114/60; PULSE 58; RESP 18; TEMP 37.3; O2SAT 94; BMI 24.0
[2022-06-19 06:09] LABS: POC Glucose,Bedside 73 (70-110)
--- NOTE | 2022-06-19 06:26 | PC.NURSE ---
PT HAS RESTED INTERMITTENTLY THIS SHIFT. NO C/O PAINI, NAUSEA, OR VOMITING THIS SHIFT. AMBULATING WITH X1 ASSIST AND THE WALKER. VSS.
[2022-06-19 08:00] VITALS: BP 143/70; PULSE 66; RESP 18; TEMP 37; O2SAT 98
[2022-06-19 08:47] VITALS: BMI 24.0
--- NOTE | 2022-06-19 09:46 | P.PN_ITS ---
Subjective *Date: 06/19/22 *Time: 09:46 Interval history: Patient with no new complaints today. He still feels unsteady with walking. Medical Exam Vital signs and Labs for Last 24 Hours: Vital Signs Temp Pulse Resp BP Pulse Ox 06/19/22 08:00 98 06/19/22 08:00 98.6 F 66 18 143/70 H 98 06/19/22 04:00 99.2 F 58 L 18 114/60 94 L 06/18/22 19:49 98.6 F 56 L 16 131/52 L 97 06/18/22 15:19 97.9 F 50 L 18 143/57 H 99 06/18/22 11:18 98.3 F 39 L 18 113/55 L 98 Intake and Output 06/18/22 06/19/22 06/19/22 23:59 07:59 15:59 Intake Total 240 / 2615 2339 / 2819 480 / 2819 Output Total 200 / 200 750 / 750 Balance 40 / 2415 1589 / 2069 480 / 2069 Intake: Intake, Oral Amount 240 / 1200 480 / 480 Intake, Total IV Amount 2339 / 2339 0.9 % Sodium Chloride 1000ML 1, 2339 / 2339 000 ml @ 100 mls/hr IV .Q10H [facility] Rx#:[id number] Output: Output, Urine Amount 200 / 200 750 / 750 Other: Number of Unmeasured Voids 1 Number of Bowel Movements 1 1 Weight 178 lb 177 lb 15.984 oz Patient Weight 06/19/22 23:59 Weight 177 lb 15.984 oz Laboratory Results - last 24 hr 06/18/22 11:21: POC Glucose 118 H 06/18/22 16:09: POC Glucose 89 06/18/22 20:47: POC Glucose 78 06/19/22 06:02: POC Glucose 73 I & O for Labs for Last 24 Hours: Intake & Output 06/16/22 06/17/22 06/18/22 06/19/22 23:59 23:59 23:59 23:59 Intake Total 2615 / 2615 2819 / 2819 Output Total 0 / 0 200 / 200 750 / 750 Balance 0 / 1415 2415 / 2415 2069 / 2069 Weight 168 lb 7 oz 172 lb 6.4 oz 177 lb 15.984 oz Constitutional: Present no acute distress Respiratory: Present normal respiratory effort Cardiac: Present Reg Rate and Rhythm GI: Present normal bowel sounds; Absent tenderness Extremities: Present normal inspection and full ROM Assessment and Plan *Assessment and plan (1) Vomiting: Status: Acute Category: Medical Code(s): R11.10 - Vomiting, unspecified (2) Unsteadiness: Status: Acute Category: Medical Code(s): R26.81 - Unsteadiness on feet (3) Bradycardia, sinus: Status: Acute Category: Medical Code(s): R00.1 - Bradycardia, unspecified (4) Hypertension: Status: Chronic Category: Medical Code(s): I10 - Essential (primary) hypertension (5) Type 2 diabetes mellitus: Status: Acute Category: Medical Code(s): E11.9 - Type 2 diabetes mellitus without complications (6) [place]-vesical fistula: Status: Acute Category: Medical Code(s): N32.1 - Vesicointestinal fistula (7) Forehead laceration: Status: Acute Category: Medical Code(s): S01.81XA - Laceration without foreign body of other part of head, initial encounter Plan HR was as low as 39 yesterday, Atenolol has already been given this morning. Will stop it now. PT/OT notes reviewed. They recommend short term placement. Spoke to patient and he will consider his options. Will consult care management.
[2022-06-19 11:31] LABS: POC Glucose,Bedside 81 (70-110)
[2022-06-19 15:48] VITALS: BP 152/65; PULSE 51; RESP 18; TEMP 36.4; O2SAT 99
--- NOTE | 2022-06-19 15:48 | PC.NURSE ---
Pt resting well in bed at this time. No N/V so far this shift. Tolerating diet well. No abdominal pain reported. Pleasant and cooperative with care.
[2022-06-19 17:05] LABS: POC Glucose,Bedside 96 (70-110)
[2022-06-19 19:59] VITALS: BP 136/77; PULSE 51; RESP 16; TEMP 36.8; O2SAT 97
[2022-06-19 21:00] LABS: POC Glucose,Bedside 96 (70-110)
[2022-06-20 04:00] VITALS: BP 142/61; PULSE 50; RESP 16; TEMP 36.3; O2SAT 96; BMI 24.3
--- NOTE | 2022-06-20 05:23 | PC.NURSE ---
NO ACUTE CHANGES SINCE PREVIOUS ASSESSMENT. PT HAS RESTED WELL NO C/O PAIN, NAUSEA, OR VOMITING. HAS A NON-PRODUCTIVE COUGH. AMBULATING WITH ASSIST X1 WITH WALKER. VSS. REMAINS ON ROOM AIR. CALL ORR WITHIN REACH.
[2022-06-20 06:25] LABS: POC Glucose,Bedside 81 (70-110)
[2022-06-20 06:44] LABS: Blood Urea Nitrogen 14 mg/dl (9-20); Calcium 7.5 mg/dl (8.4-10.2); Carbon Dioxide 24 mmol/L (22.0-30.0); Chloride 109 mmol/L (98-107); Creatinine Clearance Estimated 78 mL/min (50-200); Estimated Glomerular Filt Rate 74 ml/min (>60); GFR (African American) 89 ML/MIN (>60); Glucose 78 mg/dl (74-100); Sodium 136 mmol/L (136-145)
[2022-06-20 06:54] LABS: Basophils # 0.2 K/mm3 (0-0.2); Basophils % 2.8 % (0.1-2.0); Eosinophils # 0.5 K/mm3 (0.0-0.4); Eosinophils % 8.2 % (0.1-12.0); Hemoglobin 12.9 g/dL (14.1-18.0); Mean Corpuscular HGB Conc 31.5 g/dL (31.8-35.4); Mean Corpuscular Hemoglobin 28.5 pg (27.0-31.2); Mean Corpuscular Volume 90.3 fl (80-94); Mean Platelet Volume 8.3 fl (7.4-10.4); Monocytes # 0.3 K/mm3 (0.1-1.0); Monocytes % 4.7 % (1.7-9.3); Neutrophils # 3.7 K/mm3 (1.8-7.8); Neutrophils % 66.3 % (37.0-80.0); Platelet Count 203 K/mm3 (142-424); Red Blood Count 4.54 M/mm3 (4.60-6.20); Red Cell Distribution Width 15.9 % (11.5-17.5); White Blood Count 5.6 K/mm3 (4.8-10.8)
--- NOTE | 2022-06-20 07:08 | PC.NURSE ---
Dr. Eason at bedside.
[2022-06-20 08:00] VITALS: BP 159/71; PULSE 55; RESP 18; TEMP 36; O2SAT 96
--- NOTE | 2022-06-20 08:32 | EXP.PN ---
Subjective *Date: 06/20/22 *Time: 09:03 Interval history: Patient states he is feeling good. He slept between nursing checks. He is eating satisfactory without problems. He ate a good breakfast this morning. He is ambulated with his walker and states he has not been dizzy. He is voiding QS and bowels have moved. He denies chest pain and shortness of breath. Abdomen is not sore. Picc remains in place Exam Data for Last 24 hours Vital signs and Labs for Last 24 Hours: Temp Pulse Resp BP Pulse Ox 96.8 F L 55 L 18 159/71 H 96 06/20/22 08:00 06/20/22 08:00 06/20/22 08:00 06/20/22 08:00 06/20/22 08:00 Laboratory Results - last 24 hr 06/19/22 11:24: POC Glucose 81 06/19/22 16:55: POC Glucose 96 06/19/22 20:38: POC Glucose 96 06/20/22 06:18: POC Glucose 81 06/20/22 06:20: WBC 5.6, RBC 4.54 L, Hgb 12.9 L, Hct 41.0 L, MCV 90.3, MCH 28.5, MCHC 31.5 L, RDW 15.9, Plt Count 203 D, MPV 8.3, Neut % (Auto) 66.3, Lymph % (Auto) 18.0, [place] % (Auto) 4.7, Eos % (Auto) 8.2, Baso % (Auto) 2.8 H, Neut # (Auto) 3.7, Lymph # (Auto) 1.0, [place] # (Auto) 0.3, Eos # (Auto) 0.5 H, Baso # (Auto) 0.2 06/20/22 06:20: Sodium 136, Potassium 4.0, Chloride 109 H, Carbon Dioxide 24, Anion Gap 7.0, BUN 14, Creatinine 1.00 D, Estimated Creat Clear 78, Estimated GFR 74, Est GFR ( Amer) 89 D, Glucose 78, Calcium 7.5 L I & O for Last 24 hours: Intake & Output 06/17/22 06/18/22 06/19/22 06/20/22 11:59 11:59 11:59 11:59 Intake Total 1895 / 1895 3539 / 3539 1703 / 1703 Output Total 0 / 0 950 / 950 1675 / 1675 Balance 189 / 189 2589 / 2589 28 / 28 Weight 172 lb 6.4 oz 177 lb 15.984 oz 179 lb 4.8 oz Constitutional Constitutional: no acute distress Comments: Sitting up in bed completing his breakfast. Feels comfortable. *Routine Respiratory Exam Respiratory: Present CTA bilaterally *Routine Cardiovascular Exam Cardiovascular: Present RRR *Routine Abdominal Exam Abdominal: Present soft and normoactive bowel sounds; Absent tenderness or distended *Routine Extremities Exam Extremities: Absent edema or calf tenderness *Routine Neurological Exam Neurological: Present alert and oriented X3 Assessment and Plan *Assessment and plan (1) Vomiting: Status: Acute Category: Medical Code(s): R11.10 - Vomiting, unspecified (2) Unsteadiness: Status: Acute Category: Medical Code(s): R26.81 - Unsteadiness on feet (3) Bradycardia, sinus: Status: Acute Category: Medical Code(s): R00.1 - Bradycardia, unspecified (4) Hypertension: Status: Chronic Category: Medical Code(s): I10 - Essential (primary) hypertension (5) Type 2 diabetes mellitus: Status: Acute Category: Medical Code(s): E11.9 - Type 2 diabetes mellitus without complications (6) [place]-vesical fistula: Status: Acute Category: Medical Code(s): N32.1 - Vesicointestinal fistula (7) Forehead laceration: Status: Acute Category: Medical Code(s): S01.81XA - Laceration without foreign body of other part of head, initial encounter Plan Heart rate has been in the 50s. White blood cell count is normal. H&H is stable. Continue IV antibiotics and PT/OT Dr. Hatfield entry - Saw patient, agree with above note.
--- NOTE | 2022-06-20 14:02 | DIET.NUTRFU ---
RD visited post lunch, he had no dietary concerns. He is tolerating diabetic diet with controlled A1c of 5.7%, no handouts needed. Patient did report some weight loss of about 10# prior to May 2022, has been stable since. Patient cannot recall changing his eatting habits. Encouarged him to trend his weight in the furture to make sure consuming enough calories. BMI is WNL and no GI distress. Labs appear WNL and is hoping to discharge today. Nursing aware
--- NOTE | 2022-06-20 15:10 | CARE MANAGER ---
CM met with patient at bedside today to discuss discharge planning needs. Patient stated that he is able to ambulate with use of walker and feels like he is able to return home safely. Patient has a walker at home. No known needs r/t to discharge.
[2022-06-20 15:38] VITALS: BP 150/73; PULSE 55; RESP 18; TEMP 35.9; O2SAT 98
--- NOTE | 2022-06-21 11:34 | CARE MANAGER ---
Contacted patient related to hospital discharge. Patient states he is doing well. He picked up his medication and is aware of his follow up appointment. Denies questions or concerns. DEYANIRA Gilbert
--- NOTE | 2022-06-22 08:12 | EXP.DC.SUM ---
General Admission date:: 06/17/22 Discharge date: 06/20/22 HPI HPI HPI: Mr. Childers is a patient of the [facility] clinic in [place], who was recently diagnosed with a colo-vesical fistula, who is being managed by Dr. Domínguez. He has had several recent admission to the hospital and on the day of admission he was preparing to have a colonoscopy in [place] with Dr. Ron. After taking the bowel prep he had a lot of vomiting and had an unsteady gait. He feel at home and sustained a forehead laceration. He came to the ER here at [facility] and had an extensive evaluation preformed. His forehead laceration was repaired. He was found to be bradycardic, his beta luli dose was decreased and he was discharged. He went directly to the infusion center at [facility] to have his daily IV antibiotic and started vomiting again there so he was sent back to the emergency department for further evaluation. At that point plans were made for hospital admission. Hospital Course Hospital Course Hospital Course: The patient was continued on daily Invanz and a PT consult was requested. By 06/19/2022, he still felt unsteady when walking. His heart rate dropped into the 30s, therefore his atenolol was discontinued. Physical therapy recommended short-term placement and the patient stated he would consider his options. Care management was consulted. By 06/20/2022, he was able to ambulate with his walker and was no longer dizzy. His heart rate had improved into the 50s. His H&H was stable and his white blood cell count was normal. It was felt he was stable to be discharged home after his last day of antibiotic on 06/20/2022. The PICC line was removed and a prescription for irbesartan was sent to [facility]. The patient will follow-up with Dr. Ron to reschedule his colonoscopy and will follow up with Dr. Domínguez on 06/28/2022 for suture removal. Exam Data for Last 24 hours Vital signs and Labs for Last 24 Hours: Temp Pulse Resp BP Pulse Ox 96.6 F L 55 L 18 150/73 H 98 06/20/22 15:38 06/20/22 15:38 06/20/22 15:38 06/20/22 15:38 06/20/22 15:38 I & O for Last 24 hours: Intake & Output 06/19/22 06/20/22 06/21/22 06/22/22 11:59 11:59 11:59 11:59 Intake Total 3539 / 3539 1703 / 1703 360 / 360 Output Total 950 / 1200 1875 / 1875 0 / 0 Balance 2589 / 2339 -172 / -172 360 / 360 Weight 177 lb 15.984 oz 179 lb 4.8 oz Narrative: Constitutional Constitutional: no acute distress *Routine HEENT Exam Head: Present normocephalic Eye: Present EOMI and PERRL ENT: Present mucous membranes moist *Routine Neck Exam Neck: Present supple; Absent lymphadenopathy *Routine Respiratory Exam Respiratory: Present CTA bilaterally *Routine Cardiovascular Exam Cardiovascular: Present RRR *Routine Abdominal Exam Abdominal: Present soft and normoactive bowel sounds; Absent tenderness *Routine Rectal Exam Rectal:: deferred *Routine Genitalia Exam Genitalia:: deferred *Routine Extremities Exam Extremities: Absent cyanosis, clubbing or edema *Routine Skin Exam Skin: Present warm; Absent rash *Routine Neurological Exam Neurological: Present alert and oriented X3 DS: Diagnosis Discharge Diagnosis (1) Vomiting: Status: Acute (2) Unsteadiness: Status: Acute (3) Bradycardia, sinus: Status: Acute (4) Hypertension: Status: Chronic (5) Type 2 diabetes mellitus: Status: Acute (6) [place]-vesical fistula: Status: Acute (7) Forehead laceration: Status: Acute Meds Home Medications and Allergies Home Medications Medication Instructions Recorded Confirmed Type allopurinol 300 mg tablet 300 mg PO DAILY gout 05/20/22 06/17/22 History potassium chloride 20 mEq 20 meq PO BID potassium replacement 05/20/22 06/17/22 History tablet,extended release(part/cryst) tamsulosin 0.4 mg capsule 0.4 mg PO HS prostate 05/20/22 06/17/22 History triamterene 37.5 1 tab PO DAILY Hypertension 05/20/22 06/17/22 History mg-hydroch
== END 2022-06-20 17:15 | disposition home or self-care (01) ==
LOC: ER 14:10 → 2ND 14:32
PROVIDERS: Admitting Provider Internal Medicine Adolescent Medicine; Emergency Provider Emergency Medicine; PCP Family Medicine; Visit Provider Family Medicine
DX: E11.9 Type 2 diabetes mellitus without complications (principal); R11.10 Vomiting, unspecified; N32.1 Vesicointestinal fistula; S01.81XA Laceration without foreign body of other part of head, initial encounter; F17.210 Nicotine dependence, cigarettes, uncomplicated; Z79.84 Long term (current) use of oral hypoglycemic drugs; Z79.899 Other long term (current) drug therapy; R26.81 Unsteadiness on feet; R29.6 Repeated falls; Z20.822 Contact with and (suspected) exposure to COVID-19
CPT/HCPCS: 12013; G0378; 36415; 70450; 71045; 72125; 72170; 80048; 80053; 81001; 82962; 83735; 84484; 85025; 87086; 93005; 96365; 97116; 97162; 97166; 97530; 99285; C9803; J1335; J2405; U0003; U0005

== ENCOUNTER → 2022-10-25 23:32 | Outpatient (CLI) | payer MEDICARE, BC, SELFPAY ==
[2022-10-25 19:02] LABS: Anion Gap 10.4 mEq/L (5-15); Blood Urea Nitrogen 16 mg/dl (9-20); Carbon Dioxide 26 mmol/L (22.0-30.0); Chloride 105 mmol/L (98-107); Estimated Glomerular Filt Rate 66 ml/min (>60); GFR (African American) 80 ML/MIN (>60); Glucose 99 mg/dl (74-100); Potassium 4.4 mmoL/L (3.5-5.1); Sodium 137 mmol/L (136-145)
== END ==
PROVIDERS: PCP Family Medicine; Visit Provider Family Medicine
DX: E11.9 Type 2 diabetes mellitus without complications (principal); N40.1 Benign prostatic hyperplasia with lower urinary tract symptoms; R39.11 Hesitancy of micturition; B96.1 Klebsiella pneumoniae [K. pneumoniae] as the cause of diseases classified elsewhere; Z79.84 Long term (current) use of oral hypoglycemic drugs
CPT/HCPCS: 80048; 83036; 87086; 87088; 87186

== ENCOUNTER → 2023-02-21 14:00 | Outpatient (CLI) | payer MEDICARE, BC, SELFPAY ==
[2023-02-21 19:03] LABS: Basophils # 0.1 K/mm3 (0-0.2); Eosinophils % 0.1 % (0.1-12.0); Hematocrit 49.4 % (42.0-52.0); Hemoglobin 16.1 g/dL (14.1-18.0); Lymphocytes # 1.7 K/mm3 (0.7-4.5); Lymphocytes % 21.2 % (10-50); Mean Corpuscular HGB Conc 32.5 g/dL (31.8-35.4); Mean Corpuscular Hemoglobin 31.5 pg (27.0-31.2); Mean Corpuscular Volume 96.9 fl (80-94); Mean Platelet Volume 9.3 fl (7.4-10.4); Monocytes # 0.5 K/mm3 (0.1-1.0); Monocytes % 6.4 % (1.7-9.3); Neutrophils # 5.8 K/mm3 (1.8-7.8); Neutrophils % 71.3 % (37.0-80.0); Platelet Count 229 K/mm3 (142-424); Red Blood Count 5.09 M/mm3 (4.60-6.20); Red Cell Distribution Width 15.3 % (11.5-17.5); White Blood Count 8.1 K/mm3 (4.8-10.8)
[2023-02-21 19:10] LABS: Alanine Aminotransferase 36 U/L (12-78); Albumin Level 4.4 g/dl (3.5-5.0); Albumin/Globulin Ratio 1.4 (1.1-1.8); Alkaline Phosphatase 168 U/L (38-126); Anion Gap 14.5 mEq/L (5-15); Aspartate Amino Transferase 50 U/L (17-59); Bilirubin,Total 0.4 mg/dl (0.2-1.3); Blood Urea Nitrogen 22 mg/dl (9-20); Calcium 8.8 mg/dl (8.4-10.2); Carbon Dioxide 24 mmol/L (22.0-30.0); Chloride 102 mmol/L (98-107); Estimated Glomerular Filt Rate 50 ml/min (>60); GFR (African American) 60 ML/MIN (>60); Globulin 3.2 g/dL (1.3-3.2); Glucose 96 mg/dl (74-100); Potassium 4.5 mmoL/L (3.5-5.1); Sodium 136 mmol/L (136-145); Total Protein,Serum 7.6 g/dl (6.3-8.2)
== END ==
PROVIDERS: PCP Family Medicine; Visit Provider Family Medicine
DX: F17.200 Nicotine dependence, unspecified, uncomplicated (principal); E11.9 Type 2 diabetes mellitus without complications; Z79.84 Long term (current) use of oral hypoglycemic drugs
CPT/HCPCS: 80053; 85025

== ENCOUNTER 2023-05-23 19:18 | Outpatient (CLI) | payer MEDICARE, BC, SELFPAY ==
[2023-05-23 19:47] LABS: Alanine Aminotransferase 34 U/L (12-78); Albumin Level 4.2 g/dl (3.5-5.0); Albumin/Globulin Ratio 1.4 (1.1-1.8); Alkaline Phosphatase 141 U/L (38-126); Anion Gap 8.7 mEq/L (5-15); Aspartate Amino Transferase 41 U/L (17-59); Bilirubin,Total 0.5 mg/dl (0.2-1.3); Blood Urea Nitrogen 17 mg/dl (9-20); Calcium 8.8 mg/dl (8.4-10.2); Carbon Dioxide 25 mmol/L (22.0-30.0); Chloride 107 mmol/L (98-107); Estimated Glomerular Filt Rate 54 ml/min (>60); GFR (African American) 66 ML/MIN (>60); Glucose 99 mg/dl (74-100); Potassium 4.7 mmoL/L (3.5-5.1); Sodium 136 mmol/L (136-145); Total Protein,Serum 7.2 g/dl (6.3-8.2)
== END 2023-05-23 23:59 ==
PROVIDERS: PCP Family Medicine; Visit Provider Family Medicine
DX: R30.0 Dysuria (principal); E11.9 Type 2 diabetes mellitus without complications; B96.89 Other specified bacterial agents as the cause of diseases classified elsewhere; Z79.84 Long term (current) use of oral hypoglycemic drugs
CPT/HCPCS: 80053; 87086

== ENCOUNTER 2023-06-19 13:12 | Outpatient (CLI) | payer MEDICARE, BC, SELFPAY ==
--- NOTE | 2023-06-19 13:14 | CT_ITS ---
FINAL REPORT TECHNIQUE: Axial CT images of the chest were obtained without contrast. Low-dose protocol was utilized. This study was performed with techniques to keep radiation doses as low as reasonably achievable (ALARA). Individualized dose reduction techniques using automated exposure control or adjustment of mA and/or kV according to the patient's size were employed. CLINICAL HISTORY: lung cancer screening current smoker [id number] years COMPARISON: 05/20/2021 FINDINGS: CT CHEST WITHOUT, LOW DOSE SCREENING CT Di Vol: 2.90 mGy DLP: 111.51 mGy*cm There is no axillary, mediastinal, or hilar adenopathy. There is bilateral gynecomastia. The heart size is normal. There is no pleural or pericardial effusion. The lung windows show a 4 mm right middle lobe nodule on image 57 which is stable. There is a calcified granuloma in the right middle lobe. There is no new mass or nodule. Limited images of the upper abdomen demonstrate a low-attenuation nodule in the right upper quadrant which is stable and may represent an adenoma. IMPRESSION: LR Category 2: 12 month follow-up low-dose chest CT is recommended. Reviewed, Interpreted and Dictated by Skinny Alford III, MD Transcribed by Roxi Nash Authenticated and [facility]
== END 2023-06-19 23:59 ==
PROVIDERS: PCP Family Medicine; Visit Provider Family Medicine
DX: F17.210 Nicotine dependence, cigarettes, uncomplicated (principal)
CPT/HCPCS: 71271

== ENCOUNTER 2023-09-19 18:00 | Outpatient (CLI) | payer MEDICARE, BC, SELFPAY ==
[2023-09-19 18:03] LABS: Basophils # 0.1 K/mm3 (0-0.2); Basophils % 1.4 % (0.1-2.0); Eosinophils # 0.2 K/mm3 (0.0-0.4); Eosinophils % 2.5 % (0.1-12.0); Hematocrit 47.4 % (42.0-52.0); Hemoglobin 15.8 g/dL (14.1-18.0); Lymphocytes # 1.6 K/mm3 (0.7-4.5); Lymphocytes % 19.4 % (10-50); Mean Corpuscular HGB Conc 33.2 g/dL (31.8-35.4); Mean Corpuscular Hemoglobin 31.4 pg (27.0-31.2); Mean Corpuscular Volume 94.5 fl (80-94); Mean Platelet Volume 9.3 fl (7.4-10.4); Monocytes # 0.4 K/mm3 (0.1-1.0); Monocytes % 5.1 % (1.7-9.3); Neutrophils # 6.1 K/mm3 (1.8-7.8); Neutrophils % 71.7 % (37.0-80.0); Platelet Count 267 K/mm3 (142-424); Red Blood Count 5.02 M/mm3 (4.60-6.20); Red Cell Distribution Width 15.7 % (11.5-17.5); White Blood Count 8.5 K/mm3 (4.8-10.8)
[2023-09-19 20:08] LABS: Alanine Aminotransferase 29 U/L (12-78); Albumin Level 4.1 g/dl (3.5-5.0); Albumin/Globulin Ratio 1.3 (1.1-1.8); Alkaline Phosphatase 131 U/L (38-126); Anion Gap 13.6 mEq/L (5-15); Aspartate Amino Transferase 42 U/L (17-59); Bilirubin,Total 0.5 mg/dl (0.2-1.3); Blood Urea Nitrogen 23 mg/dl (9-20); Calcium 8.9 mg/dl (8.4-10.2); Carbon Dioxide 23 mmol/L (22.0-30.0); Chloride 105 mmol/L (98-107); Estimated Glomerular Filt Rate 60 ml/min (>60); GFR (African American) 72 ML/MIN (>60); Globulin 3.2 g/dL (1.3-3.2); Glucose 106 mg/dl (74-100); Potassium 4.6 mmoL/L (3.5-5.1); Sodium 137 mmol/L (136-145); Total Protein,Serum 7.3 g/dl (6.3-8.2)
== END 2023-09-19 23:59 | disposition home or self-care (01) ==
LOC: LAB.DROPOF 09-20 13:56
PROVIDERS: PCP Family Medicine; Visit Provider Family Medicine
DX: E11.9 Type 2 diabetes mellitus without complications (principal); N32.1 Vesicointestinal fistula; Z79.84 Long term (current) use of oral hypoglycemic drugs
CPT/HCPCS: 80053; 85025

== ENCOUNTER 2024-01-16 14:58 | Outpatient (CLI) | payer MEDICARE, BC, SELFPAY ==
[2024-01-16 19:20] LABS: Albumin Level 4.6 g/dl (3.5-5.0); Chloride 104 mmol/L (98-107); Potassium 4.6 mmoL/L (3.5-5.1); Sodium 135 mmol/L (136-145)
[2024-01-16 19:22] LABS: Blood Urea Nitrogen 21 mg/dl (9-20); Estimated Glomerular Filt Rate 50 ml/min (>60); GFR (African American) 60 ML/MIN (>60)
[2024-01-16 19:23] LABS: Alanine Aminotransferase 29 U/L (12-78); Albumin/Globulin Ratio 1.4 (1.1-1.8); Alkaline Phosphatase 141 U/L (38-126); Anion Gap 9.6 mEq/L (5-15); Aspartate Amino Transferase 42 U/L (17-59); Bilirubin,Total 0.7 mg/dl (0.2-1.3); Calcium 9.4 mg/dl (8.4-10.2); Carbon Dioxide 26 mmol/L (22.0-30.0); Globulin 3.3 g/dL (1.3-3.2); Glucose 100 mg/dl (74-100); Total Protein,Serum 7.9 g/dl (6.3-8.2)
[2024-01-16 19:37] LABS: Hemoglobin A1C 5.5 % (4.0-6.0)
[2024-01-16 19:54] LABS: Prostate Specific Ag Screen 3.8 ng/ml (0.0-4.0)
[2024-01-16 19:55] LABS: Thyroid Stimulating Hormone 3.12 uIU/mL (0.465-4.68)
[2024-01-16 20:38] LABS: Uric Acid 4.4 mg/dl (3.5-8.5)
== END 2024-01-16 23:59 | disposition home or self-care (01) ==
LOC: LAB.DROPOF 01-18 11:49
PROVIDERS: PCP Nurse Practitioner; Visit Provider Nurse Practitioner
DX: Z12.5 Encounter for screening for malignant neoplasm of prostate (principal); N40.1 Benign prostatic hyperplasia with lower urinary tract symptoms; I10 Essential (primary) hypertension; F17.210 Nicotine dependence, cigarettes, uncomplicated; E11.9 Type 2 diabetes mellitus without complications; Z79.84 Long term (current) use of oral hypoglycemic drugs; R39.11 Hesitancy of micturition
CPT/HCPCS: 80053; 83036; 84443; 84550; G0103

== ENCOUNTER 2024-05-14 14:55 | Outpatient (CLI) | payer MEDICARE, BC, SELFPAY ==
[2024-05-14 18:43] LABS: Alanine Aminotransferase 36 U/L (12-78); Albumin Level 4.4 g/dl (3.5-5.0); Albumin/Globulin Ratio 1.7 (1.1-1.8); Alkaline Phosphatase 125 U/L (38-126); Anion Gap 12.5 mEq/L (5-15); Aspartate Amino Transferase 36 U/L (17-59); Bilirubin,Total 0.5 mg/dl (0.2-1.3); Blood Urea Nitrogen 23 mg/dl (9-20); Calcium 9.1 mg/dl (8.4-10.2); Carbon Dioxide 26 mmol/L (22.0-30.0); Chloride 104 mmol/L (98-107); Estimated Glomerular Filt Rate 66 ml/min (>60); GFR (African American) 79 ML/MIN (>60); Globulin 2.6 g/dL (1.3-3.2); Glucose 107 mg/dl (74-100); Potassium 4.5 mmoL/L (3.5-5.1); Sodium 138 mmol/L (136-145)
== END 2024-05-14 23:59 | disposition home or self-care (01) ==
LOC: LAB.DROPOF 05-15 09:53
PROVIDERS: PCP Family Medicine; Visit Provider Family Medicine
DX: E11.9 Type 2 diabetes mellitus without complications (principal); K63.2 Fistula of intestine; N40.1 Benign prostatic hyperplasia with lower urinary tract symptoms; R39.11 Hesitancy of micturition; I10 Essential (primary) hypertension
CPT/HCPCS: 80053

== ENCOUNTER 2024-09-24 16:15 | Outpatient (CLI) | payer MEDICARE, BC, SELFPAY ==
[2024-09-24 20:06] LABS: Alanine Aminotransferase 25 U/L (12-78); Albumin Level 4.3 g/dl (3.5-5.0); Albumin/Globulin Ratio 1.4 (1.1-1.8); Alkaline Phosphatase 125 U/L (38-126); Anion Gap 13.3 mEq/L (5-15); Aspartate Amino Transferase 35 U/L (17-59); Bilirubin,Total 0.8 mg/dl (0.2-1.3); Blood Urea Nitrogen 27 mg/dl (9-20); Calcium 9.5 mg/dl (8.4-10.2); Carbon Dioxide 22 mmol/L (22.0-30.0); Chloride 101 mmol/L (98-107); Estimated Glomerular Filt Rate 46 ml/min (>60); GFR (African American) 56 ML/MIN (>60); Globulin 3.1 g/dL (1.3-3.2); Glucose 102 mg/dl (74-100); Potassium 4.3 mmoL/L (3.5-5.1); Sodium 132 mmol/L (136-145); Total Protein,Serum 7.4 g/dl (6.3-8.2)
--- OUTSIDE RECORDS SUMMARY | 2024-09-25 12:53 | XMS_ITS | Clinical Summary ---
Author Organization Healthcare Address [address] [id number] Care Team Providers Care Wire Twister Name Role Phone Pérez Domínguez MD Primary Care Provider Family History Medical History Relation Name Comments Liver disease Brother Polycythemia Father Stroke Mother Brain Tumor Sister Relation Name Status Comments Brother Father Mother Sister Social History Tobacco Use Types Packs/Day Years Used Date Smoking Tobacco: Every Day Alcohol Use Standard Drinks/Week Comments No 0 (1 standard drink = 0.6 oz pur e alcohol) Sex and Gender Information Value Date Recorded Sex Assigned at Not on file Legal Sex Male 5:59 PM EDT Gender Identity Not on file Sexual Orientation Not on file Last Filed Vital Signs Vital Sign Reading Time Taken Comments Blood Pressure - - Pulse - - Temperature - - Respiratory Rate - - Oxygen Saturation - - Inhaled Oxygen Concentration - - Weight 115 kg (253 lb 15.9 oz) 01/08/2014 1:42 P M EDT Height 182.9 cm (6') 01/08/2014 1:42 PM EDT Body Mass Index 34.45 01/08/2014 1:42 PM EDT Plan of Treatment Not on file Care Teams Wire Twister Relationship Specialty Start Date End Date Pérez Domínguez MD [address] [place] [id number] PCP - General 08/14/20
--- OUTSIDE RECORDS SUMMARY | 2024-09-25 12:53 | XMS_ITS | Referral Summary ---
Author Organization [facility] Address [address] [place] [address] Care Team Providers Care Thread Singer Name Role Phone Pérez Domínguez MD Primary Care Provider [phone] Social History Tobacco Use Types Packs/Day Years Used Date Smoking Tobacco: Never Assessed Interpersonal Safety Answer Date Record ed Family or friends hurt you Not on file 04/22 Family or friends insult you Not on file Family or friends threaten you Not on file 0 04/22/2023 Family or friends scream or curse at you Not on file 04/22/2023 Housing Stability Answer Date Recorded Living situation today Not on file Living situation problems Not on file 2023 Food Insecurity Answer Date Recorded Food run out past 12 months Not on file 04/04 Food did not last past 12 months Not on file 04/22/2023 Employment Answer Date Recorded Help finding and keeping a job Not on file 0 04/22/2023 Family and Community Support Answer Jacky e Recorded Help with Day to Day Activities Not on file 04/22/2023 Feeling Lonely or Isolated Not on file 04/22 Educational Attainment Answer Date Klaus rded Speak language other than [place] at home Not on file 04/22/2023 Want help with school or training Not on file 04/22/2023 Depression Answer Date Recorded PHQ-2 Risk Not on file 04/22/2023 Disabilities Answer Date Recorded Difficulty concentrating Not on file 024 Difficulty doing errands alone Not on file 0 04/22/2023 Substance Use Answer Date Recorded Used prescription meds for non-medical reasons N ot on file 04/22/2023 Used illegal drugs past 12 months Not on file 04/22/2023 Sex and Gender Information Value Date Recorded Sex Assigned at Not on file Legal Sex Male 1:30 PM CDT Gender Identity Not on file Sexual Orientation Not on file Plan of Treatment Not on file Insurance MEDICARE PART A B BLUE CROSS/BLUE SHIELD Care Teams Thread Singer Relationship Specialty Start Date End Date Pérez Domínguez MD [address] [place] [address] PCP - General Family Medicine 09/07/22
--- OUTSIDE RECORDS SUMMARY | 2024-09-25 12:53 | XMS_ITS | Clinical Summary ---
Author Organization [facility] Address [address] [place] [address] Phone Care Team Providers Care Hospice Home Health Aide Name Role Phone Pérez Domínguez MD Primary Care Provider [phone] [phone] Allergies Active Allergy Reactions Criticality Noted Date Comments Shellfish Containing Products 2012 Medications INDOMETHACIN (INDOCIN ORAL) Take 25 mg by mouth 3 times daily. Active TRIAMTERENE-HYDR OCHLOROTHIAZID ORAL Take 25 mg by mouth daily. Active potassium chloride SA (K-DUR;KLOR-CON) 20 mEq Oral Tab Sust.Rel. Particle/Crystal Take 20 mEq by mouth daily. Active allopurinol (ZYLOPRIM) 300 mg Oral Tablet Take 300 mg by mouth daily. Active atenolol (TENORMIN) 100 mg Oral Tablet Take 100 mg by mouth daily. Active oxyCODONE-acetam inophen (PERCOCET) 5-325 mg Oral Tablet Take 1-2 Tabs by mouth every 4 hours as needed for up to 35 doses. 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 Carol Montgomery CATARACT EXTRACTION EXTRACAPSULAR W/ INTRAOCULAR LENS IMPLANTATION 01/24/[address] Anny Montgomery Medical History Medical History Date Comments Diverticulitis Hypertension Gout Family History Medical History Relation Name Comments Liver Disease Brother Diabetes Maternal Uncle Cancer Mother Stroke Mother Relation Name Status Comments Brother Maternal Uncle Mother Social History Tobacco Use Types Packs/Day Years Used Date Smoking Tobacco: Every Day Cigarettes 2 40 Tobacco Cessation:Ready to Q uit: No Alcohol Use Standard Drinks/Week Comments No 0 (1 standard drink = 0.6 oz pur e alcohol) Sex and Gender Information Value Date Recorded Sex Assigned at Not on file Legal Sex Male 8:57 PM EDT Gender Identity Not on file Sexual Orientation Not on file Obstetrics History Last Filed Vital Signs Vital Sign Reading Time Taken Comments Blood Pressure 140/78 01/22/2015 2:00 PM EDT Pulse 68 01/22/2015 2:00 PM EDT Temperature 36.8 C (98.3 F) 01/22/2015 2:00 PM EDT Respiratory Rate 16 01/12/2015 2:25 PM EDT Oxygen Saturation 94% 01/12/2015 2:25 PM EDT Inhaled Oxygen Concentration - - Weight 109.8 kg (242 lb) 01/22/2015 2:00 PM EDT Height 182.9 cm (6') 01/22/2015 2:00 PM EDT Body Mass Index 32.82 01/22/2015 2:00 PM EDT Plan of Treatment Health Maintenance Due Date Last Done Comments Wellness Exam Medicare 1953 Hepatitis C Screening 1969 DTaP/TDaP/Td (1 - Tdap) 1970 Cologuard 01/12/1996 Colon Cancer Screening 01/12/1996 Colonoscopy 01/12/1996 FIT 01/12/1996 Sigmoidoscopy 01/12/1996 Virtual Colonography 01/12/1996 Low Dose Lung Cancer Screening 2001 Pneumococcal Vaccine 50+ (1 of 1 - PCV) 2001 Zoster (1 of 2) 2001 COVID-19 Vaccine (2023-2 5 season) 2023 Influenza Vaccine (Season Ended) 2024 Hepatitis B Vaccine Aged Out No longe r eligible based on patient's age to complete this topic Meningococcal B Vaccine Aged Out No l onger eligible based on patient's age to complete this topic Insurance FEDERAL PPO PPO FEDERAL [place] [address] Care Teams Hospice Home Health Aide Relationship Specialty Start Date End Date Pérez Domínguez MD [address] [facility] [address] [place] [address] PCP - General Family Medicine 07/23/12
--- OUTSIDE RECORDS SUMMARY | 2024-09-25 12:53 | XMS_ITS | Clinical Summary ---
Author Organization [employer] Address [address] [place] [address] Care Team Providers Care Forging Die Sinker Name Role Phone Pérez Domínguez MD Primary Care Provider [phone] Social History Tobacco Use Types Packs/Day Years [...] Date Klaus rded Speak language other than Korean at home Not on file 04/22/2023 Want [...] Orientation Not on file Plan of Treatment Health Maintenance Due Date Last Done Comments CT Colonography 1951 Colonoscopy 1951 Colorectal Cancer Screening 1951 FOBT/FIT 1951 Fit-DNA (Cologuard) 1951 Sigmoidoscopy 1951 Depression Screening (12+) 1963 Tobacco Cessation Counseling and Screening (12+) 1963 Hepatitis C Screening 1969 Shingles Vaccine (Zoster) (1 of 2) 2001 Medicare Initial AWV [id number] 01/02/2017 Pneumococcal 50+ years (2 of 2 - PCV) 09/15/2019 COVID-19 VACCINE ( - season) 12/03/202306/2020, 07/06/2020 Falls Risk Screening 04/03/2024 Influenza Vaccine (Season Ended) 2024 05/28/19 20 Respiratory Syncytial Virus (RSV) Adult or (1 - 1-dose 75+ series) 2026 DTAP/TDAP/TD VACCINES (2 - Td or Tdap) 07/12/2027 Insurance MEDICARE PART A B CROSS/BLUE SHIELD Care Teams Forging Die Sinker Relationship Specialty Start Date End Date Pérez Domínguez MD [address] [place] [address] PCP - General Family Medicine 09/07/22
== END 2024-09-24 23:59 | disposition home or self-care (01) ==
LOC: LAB.DROPOF 09-25 12:48
PROVIDERS: PCP Family Medicine; Visit Provider Family Medicine
DX: E11.9 Type 2 diabetes mellitus without complications (principal)
CPT/HCPCS: 80053

== ENCOUNTER 2024-10-01 13:08 | Outpatient (CLI) | payer MEDICARE, BC, SELFPAY ==
--- OUTSIDE RECORDS SUMMARY | 2024-10-01 13:13 | XMS_ITS | Clinical Summary ---
Author Organization Healthcare Address [address] [id number] Care Team Providers Care Handkerchief Cutter Name Role Phone Pérez Domínguez MD Primary Care Provider [phone] Family History Medical History Relation Name Comments [...] of Treatment Not on file Care Teams Handkerchief Cutter Relationship Specialty Start Date End Date Pérez Domínguez MD [address] [place] [id number] PCP - General 08/14/20
--- OUTSIDE RECORDS SUMMARY | 2024-10-01 13:13 | XMS_ITS | Clinical Summary ---
Author Organization [employer] ([place], [place], [place], [place]) Address [address] [place] [address] Care Team Providers Care Embedded Systems Developer Name Role Phone Pérez Domínguez MD Primary Care Provider [phone] [phone] Social History Tobacco Use Types Packs/Day Years Used Date Smoking Tobacco: Never Assessed Food Insecurity Answer Date Recorded Food run [...] Date Klaus rded Speak language other than Comoran at home Not on file 04/22/2023 Want help with school or training Not on file 04/22/2023 Substance Use Answer Date Recorded Used [...] of 2 - PCV) 09/15/2019 COVID-19 VACCINE (3 - season) 12/03/202306/2020, 07/06/2020 Falls Risk Screening 04/03/2024 Influenza Vaccine (Season Ended) 2024 05/28/19 20 Respiratory Syncytial Virus (RSV) Adult or (1 - 1-dose 75+ series) 2026 DTAP/TDAP/TD VACCINES (2 - Td or Tdap) 07/12/2027 Insurance [place]ICARE [place] [address] [place] [address] CROSS/BLUE SHIELD Care Teams Embedded Systems Developer Relationship Specialty Start Date End Date Pérez Domínguez MD [address] [place] [address] PCP - General Family Medicine 09/07/22
--- OUTSIDE RECORDS SUMMARY | 2024-10-01 13:13 | XMS_ITS | Referral Summary ---
Author Organization [employer] ([place], [place], [place], [place]) Address [address] [place] [address] Care Team Providers Care Statistical Machine Mechanic Name Role Phone Pérez Domínguez MD Primary Care Provider [phone] [phone] Social History Tobacco Use Types Packs/Day Years [...] Date Klaus rded Speak language other than Guamanian at home Not on file 04/22/2023 Want [...] A B BLUE CROSS/BLUE SHIELD Care Teams Statistical Machine Mechanic Relationship Specialty Start Date End Date Pérez Domínguez MD [address] [place] [address] PCP - General Family Medicine 09/07/22
--- OUTSIDE RECORDS SUMMARY | 2024-10-01 13:13 | XMS_ITS | Clinical Summary ---
Author Organization [facility] Address [address] [place] [address] Phone Care Team Providers Care Building Associate Name Role Phone Pérez Domínguez MD Primary Care Provider [phone] Allergies Active Allergy Reactions Criticality Noted Date [...] P[place] [address] Care Teams Building Associate Relationship Specialty Start Date End Date Pérez Domínguez MD [address] [facility] [address] [place] [address] PCP - General Family Medicine 07/23/12
--- NOTE | 2024-10-01 13:30 | US_ITS ---
PROCEDURE INFORMATION: Exam: US Right Breast, Complete Exam date and time: 10/01/2024 1:15 PM Age: 74 years old Clinical indication: Right; Palp area RT retroareolar TECHNIQUE: Imaging protocol: Complete ultrasound of all four quadrants of the right breast and the retroareolar regions, including ultrasound of the axilla when performed. COMPARISON: No relevant prior studies available. FINDINGS: ULTRASOUND: Breast ultrasound findings: Sonographic images of the right breast including the retroareolar region, all 4 quadrants and the axilla demonstrates a questionable heterogeneous some abortive forming subcutaneous mass corresponding to the patient's complaint of a palpable abnormality. It is noted in the 12 o'clock axis 3 cm from nipple measures 1.2 x 1.1 x 0.7 cm. Minimal retroareolar hypoechoic tissue bilaterally most likely reflects benign gynecomastia IMPRESSION: A skin marker should be placed over the area of palpable concern followed by a diagnostic bilateral mammogram full evaluation of the patient's complaint of a palpable abnormality. ASSESSMENT: BI-RADS Category 0: Incomplete- Need Additional Imaging Evaluation
== END 2024-10-01 23:59 | disposition home or self-care (01) ==
PROVIDERS: PCP Family Medicine; Visit Provider Family Medicine
DX: N63.15 Unspecified lump in the right breast, overlapping quadrants (principal)
CPT/HCPCS: 76641

== ENCOUNTER 2024-11-20 11:06 | Emergency (ER) | payer MEDICARE, BC, SELFPAY ==
[2024-11-20] VITALS (9 sets, daily range): BP systolic 118–150; BP diastolic 60–73; PULSE 64–74; RESP 16–19; TEMP 36.5–36.7; O2SAT 97–99; BMI 29.1
--- OUTSIDE RECORDS SUMMARY | 2024-11-20 11:26 | XMS_ITS | Clinical Summary ---
Author Organization [employer] ([place], [place], [place], [place]) Address [address] [place] [address] Care Team Providers Care Hotel Maintenance Worker Name Role Phone Pérez Domínguez MD Primary Care Provider [phone] Social History Tobacco Use Types Packs/Day Years [...] Date Klaus rded Speak language other than Hungarian at home Not on file 04/22/2023 Want [...] 07/06/2020 Falls Risk Screening 04/03/2024 Influenza Vaccine (#1) 2024 05/28/2019 Respiratory Syncytial Virus (RSV) Adult or (1 - 1-dose 75+ series) 2026 DTAP/TDAP/TD VACCINES (2 - Td or Tdap) 07/12/2027 Insurance [place]ICARE [place] [address] [place] [address] CROSS/BLUE SHIELD Member Subscriber Plan / Payer (Ef fective 1995-Present) Name:Ck Childers Relation to Subscriber:Self Name:Ck Childers Payer ID:Not on file Group ID:[id number] Type:Not on file Address: [facility] [address] [place] [id number] Care Teams Hotel Maintenance Worker Relationship Specialty Start Date End Date Pérez Domínguez MD [address] [place] [address] PCP - General Family Medicine 09/07/22
--- OUTSIDE RECORDS SUMMARY | 2024-11-20 11:26 | XMS_ITS | Clinical Summary ---
Author Organization [facility] Address [address] [place] [address] Phone Care Team Providers Care District Director Name Role Phone Pérez Domínguez MD Primary Care Provider [phone] Allergies Active Allergy Reactions Criticality Noted Date [...] Vaccine (2023-2 5 season) 2023 Influenza Vaccine (#1) 2024 Hepatitis B Vaccine Aged Out No longe r eligible based on patient's age to complete this topic Meningococcal B Vaccine Aged Out No l onger eligible based on patient's age to complete this topic Insurance FEDERAL PPO PPO FEDERAL P[place] [address] Care Teams District Director Relationship Specialty Start Date End Date Pérez Domínguez MD [address] [facility] [address] [place] [address] PCP - General Family Medicine 07/23/12
--- OUTSIDE RECORDS SUMMARY | 2024-11-20 11:26 | XMS_ITS | Clinical Summary ---
Author Organization Healthcare Address [address] [id number] Care Team Providers Care Physician Practice Consultant Name Role Phone Pérez Domínguez MD Primary Care Provider [phone] Family History Medical History Relation Name Comments [...] of Treatment Not on file Care Teams Physician Practice Consultant Relationship Specialty Start Date End Date Pérez Domínguez MD [address] [place] [id number] PCP - General 08/14/20
--- OUTSIDE RECORDS SUMMARY | 2024-11-20 11:26 | XMS_ITS | Referral Summary ---
Author Organization [employer] ([place], [place], [place], [place]) Address [address] [place] [address] Care Team Providers Care Weigh And Charge Worker Name Role Phone Pérez Domínguez MD Primary Care Provider [phone] Social History Tobacco Use Types Packs/Day Years [...] Date Klaus rded Speak language other than Czech at home Not on file 04/22/2023 Want [...] A B BLUE CROSS/BLUE SHIELD Care Teams Weigh And Charge Worker Relationship Specialty Start Date End Date Pérez Domínguez MD [address] [place] [address] PCP - General Family Medicine 09/07/22
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
[2024-11-20] MEDS: 0.9 % SODIUM CHLORIDE 1000ML 1,000 ML 999 ML IV (12:08)
[2024-11-20 12:12] LABS: Hematocrit 38.8 % (42.0-52.0); Hemoglobin 13.1 g/dL (14.1-18.0); Immature Granulocytes % 0.4 %; Mean Corpuscular HGB Conc 33.8 g/dL (31.8-35.4); Mean Corpuscular Hemoglobin 30.6 pg (27.0-31.2); Mean Corpuscular Volume 90.7 fl (80-94); Nucleated Red Blood Cells % 0 %; Platelet Count 269 K/mm3 (142-424); Red Blood Count 4.28 M/mm3 (4.60-6.20); Red Cell Distribution Width-SD 45.9 fL; White Blood Count 6.8 K/mm3 (4.8-10.8)
--- NOTE | 2024-11-20 12:20 | ECG_ITS ---
APPROVED REPORT Exam: Resting ECG HR:57 bpm ECG Measurements Heart Rate 57 AXES MD 207 P 39 QRSd 142 QRS 83 QT 418 T -60 QTc 411 Conclusion SINUS BRADYCARDIA INTRAVENTRICULAR CONDUCTION DELAY [130+ ms QRS DURATION] ABNORMAL ECG UNCONFIRMED REPORT Electronically signed by : Minesh Lee, 11/20/2024 15:36:40
[2024-11-20 12:30] LABS: Alanine Aminotransferase 22 U/L (12-78); Albumin Level 4.0 g/dl (3.5-5.0); Albumin/Globulin Ratio 1.3 (1.1-1.8); Alkaline Phosphatase 192 U/L (38-126); Anion Gap 12.3 mEq/L (5-15); Aspartate Amino Transferase 40 U/L (17-59); Bilirubin,Total 0.7 mg/dl (0.2-1.3); Blood Urea Nitrogen 31 mg/dl (9-20); Calcium 8.4 mg/dl (8.4-10.2); Carbon Dioxide 19 mmol/L (22.0-30.0); Chloride 107 mmol/L (98-107); Creatinine Clearance Estimated 57 mL/min (50-200); Creatinine,Serum 1.60 mg/dl (0.66-1.25); Estimated Glomerular Filt Rate 43 ml/min (>60); GFR (African American) 52 ML/MIN (>60); Globulin 3.2 g/dL (1.3-3.2); Glucose 95 mg/dl (74-100); Lipase 110 U/L (23-300); Magnesium 1.7 mg/dl (1.6-2.3); Potassium 4.3 mmoL/L (3.5-5.1); Sodium 134 mmol/L (136-145); Total Protein,Serum 7.2 g/dl (6.3-8.2)
[2024-11-20 12:43] LABS: Troponin I < 0.01 ng/ml (0.00-0.034)
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
[2024-11-20 13:23] LABS: Hepatitis C Ab Qual. W/ RFX NEGATIVE (Negative)
[2024-11-20] MEDS: SODIUM CHLORIDE 0.9% 10ML SYR (RAD ONLY) 10 ML IV ×2 (13:38→13:56)
[2024-11-20] MEDS: 0.9 % SODIUM CHLORIDE 50 ML VIAL IV ×2 (13:38→13:56)
[2024-11-20] MEDS: IOPAMIDOL-370 (76%);100ML BOTTLE 98 ML IV (13:38)
[2024-11-20] MEDS: IOPAMIDOL-370 (76%);100ML BOTTLE 85 ML IV (13:56)
[2024-11-20 14:48] LABS: Troponin I < 0.01 ng/ml (0.00-0.034)
--- NOTE | 2024-11-20 16:11 | PC.NURSE ---
call made to Tammy/Renee Jon for pt transport home. Renee states that she will tell Tammy to come and get pt for ride home.
[2024-11-20] MEDS: KETOROLAC 30MG/ML VIAL 30 MG IM (16:20)
== END 2024-11-20 17:09 | disposition home or self-care (01) ==
PROVIDERS: Nurse Practitioner; Emergency Provider Student in an Organized Health Care Education/Training Program
DX: S22.22XA Fracture of body of sternum, initial encounter for closed fracture (principal); R07.81 Pleurodynia; R53.1 Weakness; F17.210 Nicotine dependence, cigarettes, uncomplicated; V49.9XXA Car occupant (driver) (passenger) injured in unspecified traffic accident, initial encounter
CPT/HCPCS: 70450; 70496; 70498; 71275; 72125; 72128; 72131; 74177; 80053; 83690; 83735; 84484; 85025; 86803; 87389; 93005; 96360; 96372; 99285; J1885; J7030; Q9967